=== PATIENT | female | born 1960 | race Caucasian/White ===

== ENCOUNTER 2020-09-08 16:11 | Emergency (ER) | payer OTHER, SELFPAY ==
[2020-09-08 16:25] VITALS: BP 180/123; PULSE 92; RESP 20; TEMP 36.6; O2SAT 97
--- NOTE | 2020-09-08 16:34 | ED_ITS ---
HPI - General Adult General Chief complaint: Unspecified Stated complaint: HBP Time Seen by Provider: 09/08/20 16:35 Source: patient and RN notes reviewed Mode of arrival: ambulatory Limitations: no limitations History of Present Illness HPI narrative: 60-year-old female presents with concern for 3-week history of heart palpitations. Reports she has been checking her blood pressure and it is been high. She denies any history of heart problems or treatment for high blood pressure. She denies chest pain, nausea, vomiting, back pain, abdominal pain, syncope or near syncope, diaphoresis, arm pain. MD complaint: palpitations Related Data Home Medications Medication Instructions Recorded Confirmed No Home Medications 09/08/20 09/08/20 Allergies Allergy/AdvReac Type Severity Reaction Status Date / Time No Known Allergies Allergy Verified 09/08/20 16:48 Review of Systems Review of Systems: Narrative: CONSTITUTIONAL: Denies malaise, chills, sweats, or fever. EYES: Denies visual changes CARDIOVASCULAR: Denies chest pain or edema. Reports palpitations RESPIRATORY: Denies cough or dyspnea. GASTROINTESTINAL: Denies abdominal pain, nausea, vomiting, diarrhea, bloody, or mucous stools. MUSCULOSKELETAL: Denies back pain, joint pain, or myalgia. NEUROLOGIC: Denies numbness, weakness, or headache. PSYCHIATRIC: Denies anxiety or depression. All systems reviewed & are unremarkable except as noted in HPI and below PMFSH Comments At time of signature, agree with nursing past medical, surgical, social and family history. There is no relevant family history pertinent to the presenting complaint Exam Narrative: Exam Narrative: GENERAL: Well-appearing, well-nourished, and in no acute distress. HEAD: Normocephalic EYES: PERRLA, conjunctivae clear ENT: Mucous membranes moist. NECK: Supple. CHEST: No respiratory distress. Speaks in full sentences. HEART: Regular rate and irregular rhythm. SKIN: Warm, dry, no rash. NEURO: Alert and oriented x3. PSYCH: Normal mood and affect Course Course Emergency Course: Patient is aware of, understands and agrees to reasons to be seen in the emergency department. Patient refuses transfer via EMS. Patient agrees to proceed directly to the emergency department and will be driven by her . Portions of this record may have been created with voice recognition software Vital Signs Vital signs: Reviewed. Transfer Transfered to: [facility] Transportation: Other (Private vehicle, refused EMS) Transfer rationale: Abnormal EKG, palpitations, hypertension Accepting physician: Dr. Stark Transfer comments: Patient stable. Refused transfer via EMS Medical Decision Making MDM Narrative Medical decision making narrative: History and ECG warrant further evaluation the emergency department; patient is non-toxic appearing and is in no distress. Critical Care Time Critical Care Time Critical Care Time: No Discharge Plan Discharge Clinical Impression: Abnormal ECG Patient Disposition: Acute Care Hospital Condition: Stable Prescriptions: No Action No Home Medications RF: 0 Follow-up/Referrals: UNKNOWN,DOCTOR [Primary Care Provider] - Time of Disposition: 16:46
--- NOTE | 2020-09-08 16:36 | ECG_ITS ---
Measurements Intervals [place] Rate: 91 P: 12 NE: 156 QRS: -29 QRSD: 81 T: 11 QT: 322 QTc: 396 Interpretive Statements SINUS RHYTHM VENTRICULAR PREMATURE COMPLEXES LOW QRS VOLTAGE IN PRECORDIAL LEADS ANTERIOR INFARCT, AGE INDETERMINATE BORDERLINE ST-T WAVE ABNORMALITY- DIFFUSE LEADS ABNORMAL ECG Electronically Signed On 09-08-2020 21:28:24 CDT by Porter Garcia D.O.
== END 2020-09-08 16:49 | disposition short-term general hospital (02) ==
PROVIDERS: Emergency Provider Nurse Practitioner
DX: R94.31 Abnormal electrocardiogram [ECG] [EKG] (principal)
CPT/HCPCS: 93005; 99203; G0463

== ENCOUNTER 2020-09-08 17:08 | Emergency (ER) | payer OTHER, SELFPAY ==
[2020-09-08] VITALS (7 sets, daily range): BP systolic 134–162; BP diastolic 93–110; PULSE 85–107; RESP 15–24; TEMP 36.6; O2SAT 94–100
--- NOTE | ~2020-09-08 | CT_ITS ---
EXAMINATION: CTA chest PE protocol EXAM DATE: 09/08/2020 18:25 INDICATION: Mid chest pain. States heart skipping. TECHNIQUE: Spiral CTA of the chest (pulmonary arteries) was performed with 100 cc Omnipaque 350 intr avenous contrast injection. Images were acquired during the pulmonary arterial phase. Coronal maxi mum intensity projection 3D-reconstructions were created by the technologist on dedicated workstation . Axial, coronal and sagittal reformatted images were reviewed. The dose-length product (DLP) for t his examination was 311.72 mGy-cm. The exposure was tailored according to patient size (auto mA exp osure control), and iterative reconstruction (ASIR) was used as additional dose reduction technique. There is no prior study for comparison. FINDINGS: Pulmonary arteries are well opacified and without intraluminal filling defects. No thora cic aortic dissection. The lungs are clear. There are no pleural or pericardial effusions. Trach eobronchial tree is patent. There is no mediastinal, hilar or axillary lymphadenopathy. There is no pneumothorax. Heart normal in size. No evidence of coronary arterial calcification. Upper abd omen is unremarkable. The bones are unremarkable. IMPRESSION: 1. Unremarkable CT pulmonary exam. Reviewed, dictated and finalized at location A.
--- NOTE | ~2020-09-08 | XR_ITS ---
EXAMINATION: XR chest 2V EXAM DATE: 09/08/2020 17:48 INDICATION: Racing heart, hypertension. TECHNIQUE: Frontal and lateral projections of the chest obtained and reviewed. There is no prior mary dy for comparison. FINDINGS: The lungs are clear. There are no pleural effusions. The cardiomediastinal silhouette is within normal limits. There is no pneumothorax suspected. The bones and soft tissues are unremarkab le. IMPRESSION: No acute cardiopulmonary findings. Reviewed, dictated and finalized at location A.
--- NOTE | 2020-09-08 17:25 | ECG_ITS ---
Measurements Intervals [place] Rate: 80 P: 37 CA: 160 QRS: -18 QRSD: 81 T: 19 QT: 366 QTc: 424 Interpretive Statements SINUS RHYTHM VENTRICULAR PREMATURE COMPLEX LOW QRS VOLTAGE IN PRECORDIAL LEADS BORDERLINE R WAVE PROGRESSION, ANTERIOR LEADS BORDERLINE ST-T WAVE ABNORMALITY- DIFFUSE LEADS BORDERLINE ECG Electronically Signed On 09-09-2020 7:29:53 CDT by Porter Garcia D.O.
[2020-09-08 17:36] LABS: Basophils Absolute Auto 0.1 K/mm3 (0.0-0.1); Basophils Percent Auto 0.9 % (0.2-1.2); Eosinophils Absolute Auto 0.1 K/mm3 (0-0.3); Eosinophils Percent Auto 1.4 % (0-4.4); Hematocrit 47.2 % (37.0-47.0); Immature Granulocyte Absolute 0.02 K/mm3 (0.00-0.031); Immature Granulocyte Percent A 0.3 % (0-0.5); Lymphocytes Absolute Auto 1.86 K/mm3 (0.9-3.2); Lymphocytes Percent Auto 26.5 % (18.3-44.2); Mean Corpuscular HGB Conc 33.9 g/dl (32-36); Mean Corpuscular Hemoglobin 34.4 pg (26-34); Mean Corpuscular Volume 101.5 fl (80-100); Mean Platelet Volume 10.1 fl (7.4-10.4); Monocytes Absolute Auto 0.7 K/mm3 (0.1-0.6); Monocytes Percent Auto 9.8 % (2.6-8.5); Neutrophils Absolute Auto 4.3 K/mm3 (1.3-6.7); Neutrophils Percent Auto 61.1 % (45.5-73.1); Platelet Count Result 236 k/mm3 (150-375); Red Blood Count 4.65 M/mm3 (4.2-5.4); Red Cell Distribution Width 12.3 % (11.5-14.5)
[2020-09-08 17:44] LABS: INR 0.9; Prothrombin Time 12.1 Seconds (11.1-14.7)
--- NOTE | 2020-09-08 17:44 | ED.ARRPALP ---
HPI - Arrhythmia/Palpitations General Chief Complaint: Arrhythmia/Palpitations Stated Complaint: HEART PALPATATIONS Time Seen by Provider: 09/08/20 17:39 Source: RN notes reviewed History of Present Illness HPI narrative: Patient presents to emergency department from urgent care for palpitations. Patient states for the past 2 days she has been having palpitations that she describes as a quivering feeling in her chest. She states the last approximate 1 to 2 seconds and resolved. Patient states that the episodes will vary in frequency she denies having any fevers or chills chest pain shortness of breath abdominal pain nausea vomiting or any other symptoms. Denies any previous cardiac history. Related Data Home Medications Medication Instructions Recorded Confirmed No Home Medications 09/08/20 09/08/20 Allergies Allergy/AdvReac Type Severity Reaction Status Date / Time No Known Allergies Allergy Verified 09/08/20 17:25 Review of Systems Review of Systems: Narrative: Gen.: Denies fevers or chills ENT: Denies congestion Respiratory: Denies shortness of breath or cough CV: Denies chest pain reports palpitations GI: Denies abdominal pain nausea, emesis or diarrhea denies burning, urgency, frequency or hematuria Musculoskeletal: Denies back pain or muscle pain Neuro: Denies numbness, tingling, weakness or focal weakness Skin: Denies rash Except as documented, all other systems reviewed and negative PMFSH Past Medical History Medical History (Updated 09/08/20 @ 18:50 by Christopher Gordon DO) Patient denies significant medical history Social History Social History (Updated 09/08/20 @ 17:46 by Chrisotpher Gordon DO) Smoking status: Never smoker Gender identity (if verbalized by the patient): Female Exam Narrative: Exam Narrative: APPEARANCE: No acute distress, nontoxic, resting in bed EYES: EOMI HEENT: Normocephalic, atraumatic, OMM RESPIRATORY: No respiratory distress Clear to auscultation bilaterally with no rhonchi wheezing or rales. CARDIOVASCULAR: Regular rate and rhythm without murmurs rubs or gallops. ABDOMINAL: Soft, nontender, nondistended, no rebound or guarding MUSCULOSKELETAl: Moves all extremities. No clubbing, cyanosis or edema. NEURO: Awake and alert. Following commands, speech normal, no focal deficits SKIN:: Warm, dry. No rashes lesions or abrasions PSYCHIATRIC: Normal affect/mood, Course Course Emergency Course: Patient noted to have occasional PVC on EKG and feel this is likely the source of her palpitations I did discuss the patient her blood pressure. At this time we discussed we will have her follow-up with her primary care physician as an outpatient Discussed with patient results of workup and diagnosis. Discussed need for follow-up with primary care, proper use of medication, and reasons to return to the emergency department. Patient understands and agrees to current treatment plan Vital Signs Vital signs: Vital Signs Temperature 97.9 F 09/08/20 17:22 Pulse Rate 107 H 09/08/20 17:22 Respiratory Rate 20 09/08/20 17:22 Blood Pressure 162/110 H 09/08/20 17:22 Pulse Oximetry 100 09/08/20 17:22 Temperature 97.9 F 09/08/20 17:22 Pulse Rate 85 09/08/20 18:48 Respiratory Rate 16 09/08/20 18:48 Blood Pressure 157/101 H 09/08/20 18:48 Pulse Oximetry 97 09/08/20 18:48 MDM - Arrhythmia/Palpitations Lab Data Result diagrams: 09/08/20 17:28 09/08/20 17:28 Labs: Lab Results 09/08/20 09/08/20 09/08/20 Range/Units 17:28 17:28 17:28 WBC 7.0 (4.5-10.0) K/mm3 RBC 4.65 (4.2-5.4) M/mm3 Hgb 16.0 H (12.0-15.0) g/dL Hct 47.2 H (37.0-47.0) % MCV 101.5 H (80-100) fl MCH 34.4 H (26-34) pg MCHC 33.9 (32-36) g/dl RDW 12.3 (11.5-14.5) % Plt Count 236 (150-375) k/mm3 MPV 10.1 (7.4-10.4) fl Immature Gran % (Auto) 0.3 (0-0.5) % Neut % (Auto) 61.1 (45.5-73.1) % Lymph
[2020-09-08 17:45] LABS: Partial Thromboplastin Time 23.2 SECONDS (22.3-36.8)
[2020-09-08 17:48] LABS: Anion Gap 9 mmol/L (8-16); Blood Urea Nitrogen 10 mg/dL (7-17); Calcium 10.2 mg/dL (8.4-10.2); Carbon Dioxide 31 mmol/L (22-30); Chloride 100 mmol/L (98-107); Estimated CRCL calculation 69 ml/min; Estimated Glomerular Filt Rate > 60; Glucose 138 mg/dL (65-105); Potassium 3.7 mmol/L (3.4-5.0); Sodium 140 mmol/L (137-145)
[2020-09-08 17:57] LABS: D Dimer 0.55 ug/mL (<0.48)
[2020-09-08] MEDS: ASPIRIN 81 MG CHEWABLE TABLET 324 MG PO (17:57)
[2020-09-08 18:00] LABS: Troponin I < 0.012 ng/mL (0.000-0.034)
--- NOTE | 2020-09-08 18:50 | PC.NURSE ---
verbal order from erp dr cates to not give iv fluids.
== END 2020-09-08 19:10 | disposition home or self-care (01) ==
PROVIDERS: Emergency Medicine; Emergency Provider Emergency Medicine; PCP Family Medicine
DX: I49.3 Ventricular premature depolarization (principal); R94.31 Abnormal electrocardiogram [ECG] [EKG]
CPT/HCPCS: 36415; 71046; 71275; 80048; 84443; 84484; 85025; 85380; 85610; 85730; 93005; 99284; A9270; Q9967

== ENCOUNTER 2022-01-19 12:27 | Emergency (ER) | payer OTHER, SELFPAY ==
[2022-01-19 12:38] VITALS: BP 136/102; PULSE 112; RESP 18; TEMP 36.5; O2SAT 99
--- NOTE | 2022-01-19 12:51 | ED.SKABFB ---
HPI - Skin/Abscess/Foreign Bdy General Chief complaint: Skin/Abscess/Foreign Body Stated complaint: Skin Irritation Time Seen by Provider: 01/19/22 12:51 Source: patient Mode of arrival: ambulatory Limitations: no limitations History of Present Illness HPI narrative: 61 yo F presents with rash to bilateral arms for several days. hx of eczema. has used betamethasone cream in the past the PCP prescribed. Also reports dryness around lips. No other complaints. All systems reviewed and negative except as noted above. Related Data Allergies Allergy/AdvReac Type Severity Reaction Status Date / Time No Known Allergies Allergy Verified 01/19/22 12:33 Review of Systems Review of Systems: CONSTITUTIONAL: Denies fever, chills, or sweats. EYES: Denies visual changes, redness, or discharge. ENT: Denies rhinorrhea, congestion, sore throat, or otalgia. CARDIOVASCULAR: Denies chest pain, palpitations, or edema. RESPIRATORY: Denies cough or dyspnea. GASTROINTESTINAL: Denies abdominal pain, nausea, vomiting, or diarrhea. GENITOURINARY: Denies dysuria or hematuria. SKIN: Reports rash or itching to bilateral upper arms. MUSCULOSKELETAL: Denies back pain, joint pain, or myalgia. NEUROLOGIC: Denies headache, numbness, or weakness. PSYCHIATRIC: Denies anxiety or depression. All other systems reviewed are negative, except as documented in HPI. [facility] Past Medical History Medical History (Updated 01/19/22 @ 13:06 by Neeta Snowden NP) Patient denies significant medical history Social History Social History (Updated 09/08/20 @ 17:46 by Christopher Gordon DO) Smoking status: Never smoker Gender identity (if verbalized by the patient): Female Comments At time of signature, agree with nursing past medical, surgical, social and family history. There is no relevant family history pertinent to the presenting complaint. Exam Narrative: GENERAL: This is a well-nourished, well-developed patient, in no apparent distress. HEAD: normocephalic, atraumatic. EYES: PERRL. Sclera clear/white. Vision is grossly intact. EARS: External ears normal, auditory canals clear and without drainage, TMs normal without perforation. Hearing grossly intact. NOSE: External nose normal with no obvious nasal discharge, nares without redness, no rhinorrhea. THROAT: Mucous membranes moist, posterior pharynx clear. NECK: Neck supple, non-tender without lymphadenopathy, masses or thyromegaly. CARDIOVASCULAR: Regular rate and rhythm without murmurs, gallops, or rubs. RESPIRATORY: Clear to auscultation. Breath sounds equal bilaterally. No wheezes, rales, or rhonchi. GASTROINTESTINAL: Abdomen soft, non-tender, nondistended. Bowel sounds are active. No hepato-splenomegaly, or palpable masses. No guarding. SKIN: warm, Dry, intact, good texture and turgor. Circular erythematous scaly lesions to bilateral upper arms and hands consistent with nummular eczema. NEURO: awake, alert, and oriented to person, place and time. There were no obvious focal neurologic abnormalities. EXTREMITIES: No joint tenderness, effusion, or edema noted. No calf tenderness. Negative Homans sign bilaterally. BACK: Nontender without deformity. No CVA tenderness. Course Course Level of Care: Express Care Visit Vital Signs Vital signs: Vital Signs Temperature 36.5 C 01/19/22 12:38 Pulse Rate 112 H 01/19/22 12:38 Respiratory Rate 18 01/19/22 12:38 Blood Pressure 136/102 H 01/19/22 12:38 Pulse Oximetry 99 01/19/22 12:38 Temperature 36.5 C 01/19/22 12:38 Pulse Rate 112 H 01/19/22 12:38 Respiratory Rate 18 01/19/22 12:38 Blood Pressure 136/102 H 01/19/22 12:38 Pulse Oximetry 99 01/19/22 12:38 MDM - Skin/Abscess/Foreign Bdy MDM Narrative Medical decision making narrative: Patient is aware of diagnosis, understands and agrees to treatment plan. Anticipatory guidance given. Patient agrees to follow-up as directed and is aware of reasons to seek care at the emergency de
== END 2022-01-19 13:07 | disposition home or self-care (01) ==
PROVIDERS: Emergency Provider Nurse Practitioner Family; PCP Family Medicine
DX: L30.9 Dermatitis, unspecified (principal); L30.0 Nummular dermatitis
CPT/HCPCS: 99213; G0463

== ENCOUNTER 2022-04-03 13:45 | Emergency (ER) | payer OTHER, SELFPAY ==
[2022-04-03 13:58] VITALS: BP 154/108; PULSE 79; RESP 16; TEMP 36.6; O2SAT 100
--- NOTE | 2022-04-03 14:15 | ED.SKABFB ---
HPI - Skin/Abscess/Foreign Bdy General Chief complaint: Skin/Abscess/Foreign Body Stated complaint: Skin Irritation Time Seen by Provider: 04/03/22 14:15 Source: patient and family Mode of arrival: ambulatory Limitations: no limitations History of Present Illness HPI narrative: 62-year-old female presented for complaint of rash to the left forearm for 5 days, also noticed red patches to the face today. Reports red patches to the face are to the corners of eyes and mouth. Denies lip, tongue, or throat swelling, difficulty breathing or wheezing, denies vision changes. states she has flareups every so often for a few months. This is the first time she is noticed it to her face. She has been using prescribed betamethasone cream for history of eczema, and [id number] hypoallergenic cream as needed for the arm. Denies changes to lotion, soap, make-up, detergent etc. She denies pain, nausea, vomiting, fevers or chills. She also endorses right shoulder blade pain, onset today at 10 AM. She has taken 3 ibuprofen. Thinks she may have pulled a muscle but does not recall; states pain is worse with deep breath. Her is helping provide History. She states I am mostly here for my face. complaint: rash Related Data Allergies Allergy/AdvReac Type Severity Reaction Status Date / Time atropine AdvReac Intermediate Fever Verified 04/03/22 14:10 Review of Systems Review of Systems: CONSTITUTIONAL: Denies body aches, fever, chills, or sweats. EYES: Denies visual changes,or discharge. ENT: Denies rhinorrhea, congestion, sore throat, or otalgia. CARDIOVASCULAR: Denies chest pain, palpitations, or edema. RESPIRATORY: Denies cough or dyspnea. GASTROINTESTINAL: Denies abdominal pain, nausea, vomiting, or diarrhea. GENITOURINARY: Denies dysuria or hematuria. SKIN: reports rash, itching MUSCULOSKELETAL: reports back pain NEUROLOGIC: Denies headache, numbness, tingling, or weakness. PSYCH: Denies depression or anxiety. [facility] Past Medical History Medical History (Updated 04/03/22 @ 14:43 by Kalie Johnson APRN) Patient denies significant medical history Social History Social History Smoking status: Never smoker Gender identity (if verbalized by the patient): Female Comments At time of signature, I have reviewed and agree with nursing past medical, surgical, social and family history unless otherwise noted. Please see nursing chart for further information. There is no relevant family history pertinent to the presenting complaint Exam Narrative: GENERAL: Well-appearing HEAD: Normocephalic, atraumatic. EYES: PERRLA, conjunctivae clear, and EOMI. ENT: Mucous membranes moist. Tongue is black in color. Oropharynx without edema, erythema or lesions. erythematous flat patches approx 1cm diameter to corners of mouth and 0.5cm diameter to inner and outer canthus of bilateral eyes NECK: Supple. No lymphadenopathy CHEST: Clear to auscultation. No respiratory distress. HEART: Regular rate and rhythm. SKIN: Warm, dry. flat patches of erythema to neck, left forearm with circular flat erythematous patches approx 3 inches diameter, no drainage, scaling, fluctuance, or induration MUSC: Pain is reported to the right shoulder blade, however nontender with palpation. She endorses pain only with deep inspiration. NEURO: Alert and oriented PSYCH: Normal mood and affect, appears forgetful Course Course Emergency Course: Patient is aware of diagnosis, understands and agrees to treatment plan. Anticipatory guidance given. Patient agrees to follow-up as directed and is aware of reasons to seek care at the emergency department. Portions of this record may have been created with voice recognition software Level of Care: Express Care Visit Vital Signs Vital signs: Vital Signs Temperature 97.9 F 04/03/22 13:58 Pulse Rate 79 04/03/22 13:58 Respiratory Rate 16 04/03/22 13
[2022-04-03 14:29] VITALS: BP 138/96
--- NOTE | 2022-04-26 12:23 | ED.SKABFB ---
HPI - Skin/Abscess/Foreign Bdy General Chief complaint: Skin/Abscess/Foreign Body Stated complaint: Skin Irritation Time Seen by Provider: 04/03/22 14:15 Source: patient and family Mode of arrival: ambulatory Limitations: no limitations History of Present Illness HPI narrative: Brenna Mendosa is a 62 yo with a PMH of eczema [facility] another flareup of what appears to be an eczematous rash this time on her face for the past week that is worsening;she has been seen here twice before for the same condition is gotten betamethasone and then famotidine with a taper pack last time she was here. 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 EYES: Denies visual changes, redness, discharge. ENT: Denies rhinorrhea, congestion, sore throat, otalgia. CARDIOVASCULAR: Denies chest pain, palpitations, edema. RESPIRATORY: Denies dyspnea, wheezing, cough GASTROINTESTINAL: Denies abdominal pain, nausea, vomiting, diarrhea. GENITOURINARY: Denies dysuria, hematuria, abnormal discharge SKIN: Rash on arms neck; bilateral periorbital and both sides of mouth NEUROLOGIC: Denies numbness, or focal weakness. PSYCHIATRIC: Denies anxiety or depression. PMFSH Past Medical History Medical History Eczema Patient denies significant medical history Social History Social History Smoking status: Never smoker Gender identity (if verbalized by the patient): Female Comments At time of signature, I agree with nursing past medical, surgical, social and family history. There is no relevant family history pertinent to the presenting complaint. Exam Narrative: GENERAL: This is a well-nourished, well-developed patient, in mild distress. HEAD: normocephalic, atraumatic. EYES: PERRL. Sclera clear/white. Vision is grossly intact. EARS: External ears normal, auditory canals clear and without drainage, TMs normal without perforation. Hearing grossly intact. NOSE: External nose normal without nasal discharge, nares without redness, no rhinorrhea. THROAT: Mucous membranes moist, posterior pharynx NECK: Neck supple, non-tender CARDIOVASCULAR: Regular rate and rhythm without murmurs, gallops, or rubs. RESPIRATORY: Clear to auscultation. Breath sounds equal bilaterally. No wheezes, rales, or rhonchi. GASTROINTESTINAL: Abdomen soft, non-tender, SKIN: warm, intact with no suspicious lesions or rash, good texture and turgor. NEURO: awake, alert, and oriented to person, place and time. There were no obvious focal neurologic abnormalities. Steady gait EXTREMITIES: Normal range of motion. BACK: Nontender without deformity Course Vital Signs Vital signs: Vital Signs Temperature 97.9 F 04/03/22 13:58 Pulse Rate 79 04/03/22 13:58 Respiratory Rate 16 04/03/22 13:58 Blood Pressure 154/108 H 04/03/22 13:58 Pulse Oximetry 100 04/03/22 13:58 Oxygen Delivery Room Air 04/03/22 13:58 Temperature 97.9 F 04/03/22 13:58 Pulse Rate 79 04/03/22 13:58 Respiratory Rate 16 04/03/22 13:58 Blood Pressure 138/96 H 04/03/22 14:29 Pulse Oximetry 100 04/03/22 13:58 Oxygen Delivery Room Air 04/03/22 13:58 Discharge Plan Discharge Clinical Impression: Dermatitis, Musculoskeletal pain Patient Disposition: Home, Self-Care Condition: Stable Instructions: Antibiotic Form, Dermatitis (ED) Additional Instructions: Wash the area with gentle soap and water only. Avoid scratching when possible to prevent worsening of the condition and disruption of the skin that could
== END 2022-04-03 14:44 | disposition home or self-care (01) ==
PROVIDERS: Emergency Provider Nurse Practitioner Family; PCP Family Medicine
DX: L30.9 Dermatitis, unspecified (principal); M79.10 Myalgia, unspecified site; Z96.643 Presence of artificial hip joint, bilateral
CPT/HCPCS: 99213; G0463

== ENCOUNTER 2022-04-26 12:02 | Emergency (ER) | payer OTHER, SELFPAY ==
[2022-04-26 12:10] VITALS: PULSE 110; RESP 18; TEMP 36.3; O2SAT 98
[2022-04-26 12:35] VITALS: BP 128/90
--- NOTE | 2022-04-26 12:42 | ED.SKABFB ---
HPI - Skin/Abscess/Foreign Bdy General Chief complaint: Skin/Abscess/Foreign Body Stated complaint: Skin Irritation Time Seen by Provider: 04/26/22 12:05 Source: patient Mode of arrival: ambulatory Limitations: no limitations History of Present Illness HPI narrative: Brenna Mendosa is a 62 yo with a PMH of eczema who [facility] with another flareup of what appears to be an eczematous rash this time on her face she has been seen here twice before for the same condition is gotten betamethasone and then famotidine with a taper pack last time she was here. Her states he is try to get a referral from the primary care doctor but is unable to get through to the office; needs to see a ap processor. Patient has had recurrence every 3 months for the last 6 months was seen on office visit in between Related Data Allergies Allergy/AdvReac Type Severity Reaction Status Date / Time atropine AdvReac Intermediate Fever Verified 04/26/22 12:07 Review of Systems Review of Systems: CONSTITUTIONAL: Denies fever, chills, sweats. EYES: Denies visual changes, redness, discharge. ENT: Denies rhinorrhea, congestion, sore throat, otalgia. CARDIOVASCULAR: Denies chest pain, palpitations, edema. RESPIRATORY: Denies dyspnea, wheezing, cough GASTROINTESTINAL: Denies abdominal pain, nausea, vomiting, diarrhea. GENITOURINARY: Denies dysuria, hematuria, abnormal discharge SKIN: Recurrent flare of eczema which is on her arms neck face around eyes NEUROLOGIC: Denies numbness, or focal weakness. PSYCHIATRIC: Denies anxiety or depression. PMFSH Past Medical History Medical History Eczema Patient denies significant medical history Social History Social History Smoking status: Never smoker Gender identity (if verbalized by the patient): Female Comments At time of signature, I agree with nursing past medical, surgical, social and family history. There is no relevant family history pertinent to the presenting complaint. Exam Narrative: GENERAL: This is a well-nourished, well-developed patient, in mild distress. HEAD: normocephalic, atraumatic. EYES: Sclera clear/white. Vision is grossly intact. EARS: External ears normal. Hearing grossly intact. NOSE: External nose normal without nasal discharge, nares without redness, no rhinorrhea. THROAT: Mucous membranes moist, NECK: Neck supple, non-tender CARDIOVASCULAR: mild tacchycardia rate and rhythm without murmurs, gallops, or rubs. RESPIRATORY: Clear to auscultation. Breath sounds equal bilaterally. No wheezes, rales, or rhonchi. GASTROINTESTINAL: Not done SKIN: warm, intact with rash on arms, red nummular, periorbital rash and rash that surrounds mouth with extension down to the chin NEURO: awake, alert, and oriented to person, place and time. There were no obvious focal neurologic abnormalities. Steady gait EXTREMITIES: Normal range of motion. BACK: Nontender without deformity Course Course Emergency Course: Patient reports recurrence of eczema and last time was given a Medrol Dosepak which she stopped taking because she developed a nosebleed encouraged to use saline nasal spray for nose starts to feel dry Given a mixture of drugs betamethasone for trunk symptoms OTC hydrocortisone for face along with Eucerin cream on all affected areas and nystatin for cheilitis Level of Care: Express Care Visit Vital Signs Vital signs: Vital Signs Temperature 97.4 F L 04/26/22 12:10 Pulse Rate 110 H 04/26/22 12:10 Respiratory Rate 18 04/26/22 12:10 Pulse Oximetry 98 04/26/22 12:10 Oxygen Delivery Room Air 04/26/22 12:10 Temperature 97.4 F L 04/26/22 12:10 Pulse Rate 110 H 04/26/22 12:10 Respiratory Rate 18 04/26/22 12:10 Blood Pressure 128/90 04/26/22 12:35 Pulse Oximetry 98 04/26/22 12:10 Oxygen Delivery Room Air 04/26/22 12:10 MDM - S
== END 2022-04-26 12:53 | disposition home or self-care (01) ==
PROVIDERS: Emergency Provider Nurse Practitioner; PCP Nurse Practitioner
DX: L30.9 Dermatitis, unspecified (principal); K13.0 Diseases of lips; Z85.828 Personal history of other malignant neoplasm of skin
CPT/HCPCS: 99213; G0463

== ENCOUNTER 2022-05-17 13:36 | Emergency (ER) | payer OTHER, SELFPAY ==
[2022-05-17 13:48] VITALS: BP 157/98; PULSE 105; RESP 18; TEMP 36.6; O2SAT 97
--- NOTE | 2022-05-17 14:06 | ED.SKABFB ---
HPI - Skin/Abscess/Foreign Bdy General Chief complaint: Skin/Abscess/Foreign Body Stated complaint: rash,nausea Time Seen by Provider: 05/17/22 13:38 Source: patient Mode of arrival: ambulatory Limitations: no limitations History of Present Illness HPI narrative: 62-year-old female presents to [facility] with complaints of eczema flareup to her bilateral arms and face for the past week. Patient has been evaluated here numerous times in the past for similar complaint and is given betamethasone and a Medrol Dosepak at that time. Husbandreports that patient is currently looking [place] a new [place] that is closer to [place]. Patient reports that she also has had intermittent nausea the past few days. Patient denies vomiting, headache, dizziness, shortness of breath or chest pains. Patient denies sick contacts. Patient denies recent travel. MD complaint: rash Onset (ago): week(s) (1) Location: face, LUE and RUE Relieving factors: none Exacerbating factors: none Associated symptoms: nausea Related Data Allergies Allergy/AdvReac Type Severity Reaction Status Date / Time atropine AdvReac Intermediate Fever Verified 05/17/22 13:58 Review of Systems Constitutional: Constitutional: Denies chills, Denies fatigue, Denies fever(s) and Denies weakness ENT: Denies dizziness Cardiovascular: Cardiovascular: Denies chest pain, Denies rapid heart rate, Denies radiating jaw, neck or arm pain and Denies slow heart rate Respiratory: Respiratory: Denies cough and Denies dyspnea Gastrointestinal: Gastrointestinal: Denies diarrhea, Reports nausea and Denies vomiting Integumentary/Breasts: Skin/Breast: Denies pruritus, Reports rash and Denies skin ulcer Neurologic: Denies dizziness PMFSH Past Medical History Medical History Eczema Patient denies significant medical history Social History Social History Smoking status: Never smoker Gender identity (if verbalized by the patient): Female Comments At time of signature, I agree with nursing past medical, surgical, social and family history. There is no relevant family history pertinent to the presenting complaint. Exam Const: General: healthy appearing Nutritional Appearance: well nourished Orientation/consciousness: patient oriented x3 Limitations: no limitations HENMT: Head: normal to inspection Mouth: Yes Normal oral and palatal mucosa present and Yes lip normal Teeth and gingiva: dentition normal Throat: posterior oropharynx normal and uvula midline Eyes: Conjunctivae: conjunctivae normal Neck: Neck: normal visual inspection Resp: Effort & Inspection: normal respiratory effort and not labored Auscultation: clear to auscultation bilaterally, no crackles, no rales and no wheezes Cardio: Rate: regular rate Rhythm: regular rhythm GI: Inspection: non-distended GI Palp: Yes Soft to palpation and No Tenderness to palpation present (GI) Skin: General skin exam: normal color Wounds: no wounds Other: Erythematous scaly rash noted to bilateral arms and face. Area likely represents eczema. There are no open wounds, purulent drainage, bruising, bleeding or signs of infection noted. Neuro: General: patient oriented x3 Speech: normal speech Gait exam (Neuro): Normal gait present Psych: Mental Status: mental status grossly normal Affect: normal affect Attitude: cooperative Course Course Level of Care: Express Care Visit MDM - Skin/Abscess/Foreign Bdy MDM Narrative Medical decision making narrative: Encouraged patient to schedule appointment with local [facility]. We will refill patient's betamethasone and prescribed Medrol pack. Instructed patient not to use steroid cream on face. Patient agrees to take Zofran as needed for nausea. Patient agrees to proceed to the emergency room if her nausea would worsen or if she develops chest pain, shortness of breath
== END 2022-05-17 14:20 | disposition home or self-care (01) ==
PROVIDERS: Emergency Provider Nurse Practitioner Family; PCP Nurse Practitioner
DX: R11.0 Nausea (principal); L30.9 Dermatitis, unspecified; Z85.828 Personal history of other malignant neoplasm of skin
CPT/HCPCS: 99213; G0463

== ENCOUNTER 2022-08-08 14:06 | Emergency (ER) | payer OTHER, SELFPAY ==
--- NOTE | 2022-08-08 14:08 | ED.SKABFB ---
HPI - Skin/Abscess/Foreign Bdy General Chief complaint: Skin/Abscess/Foreign Body Stated complaint: Rash Time Seen by Provider: 08/08/22 14:15 Source: patient and RN notes reviewed Mode of arrival: ambulatory Limitations: no limitations History of Present Illness HPI narrative: 62-year-old female is with concern for rash to her face for 3 days. Reports she has been dealing with skin issues most of the year, she has had several visits to this clinic and has also been seeing her primary care and a slab grinder. She reports that she has an appointment with her slab grinder for skin patch testing. Reports she takes antihistamine. She denies any known triggers. She reports the rash perla when she puts cream on it. She denies swollen lips, swollen tongue, trouble breathing. She reports the rash is isolated to her face and neck. She denies vision changes, drainage from the eyes, itchy eyes. MD complaint: rash Related Data Home Medications Medication Instructions Recorded Confirmed tacrolimus 0.1 % topical ointment 1 applic topical TID 08/08/22 08/08/22 Allergies Allergy/AdvReac Type Severity Reaction Status Date / Time atropine AdvReac Intermediate Fever Verified 08/08/22 14:10 Review of Systems Review of Systems: CONSTITUTIONAL: Denies malaise, chills, sweats, or fever. EYES: Denies vision changes, irritation, or discharge. ENT: Denies rhinorrhea, congestion, swollen lips, swollen tongue CARDIOVASCULAR: Denies chest pain, palpitations, or edema. RESPIRATORY: Denies cough or dyspnea. GASTROINTESTINAL: Denies abdominal pain, nausea, vomiting SKIN: Reports red rash to the face and neck, affecting both eyelids, reports rash perla when she puts cream on it MUSCULOSKELETAL: Denies joint pain or myalgia. NEUROLOGIC: Denies headache. All systems reviewed & are unremarkable except as noted in HPI and below PMFSH Past Medical History Medical History Eczema Patient denies significant medical history Social History Social History Smoking status: Never smoker Gender identity (if verbalized by the patient): Female Comments At time of signature, agree with nursing past medical, surgical, social and family history. There is no relevant family history pertinent to the presenting complaint Exam Narrative: GENERAL: Well-appearing, well-nourished, and in no acute distress. HEAD: Normocephalic, atraumatic. EYES: PERRLA, conjunctivae and sclera clear, and EOMI. ENT: Mucous membranes moist. Oropharynx without edema, erythema or lesions. NECK: Supple. No lymphadenopathy CHEST: Clear to auscultation. No respiratory distress. HEART: Regular rate and rhythm. SKIN: Warm, dry. Clustered patches of flat to slightly raised erythema without papules noted scattered to the face and neck, affecting bilateral upper and lower eyelids NEURO: Alert and oriented x3. PSYCH: Normal mood and affect Course Course Emergency Course: Patient was advised to keep her appointment with her slab grinder. Patient was given reasons to go to the emergency room. Patient reports she had tried to cover the rash up with make-up which seemed to make it worse. Patient was advised to use only creams meant for sensitive skin on the face. Patient is aware of diagnosis, understands and agrees to treatment plan. Anticipatory guidance given. Patient agrees to follow-up as directed and is aware of reasons to seek care at the emergency department. Portions of this record may have been created with voice recognition software Level of Care: Express Care Visit Vital Signs Vital signs: Reviewed. MDM - Skin/Abscess/Foreign Bdy MDM Narrative Medical decision making narrative: Does not appear at this time to be erythema multiforme, bullous, SJS, TEN; no evidence at this time to suggest RMSF, endocarditis or Lyme disease; patient looks well, nontoxic and is t
[2022-08-08 14:14] VITALS: BP 153/98; PULSE 108; RESP 18; TEMP 36.7; O2SAT 97
[2022-08-08] MEDS: methylPREDNISolone SOD SUCC 125 MG VIAL IM (14:37)
== END 2022-08-08 14:45 | disposition home or self-care (01) ==
PROVIDERS: Emergency Provider Nurse Practitioner; PCP Nurse Practitioner
DX: R21 Rash and other nonspecific skin eruption (principal); Z85.828 Personal history of other malignant neoplasm of skin
CPT/HCPCS: 96372; 99213; G0463; J2930

== ENCOUNTER 2022-08-20 17:36 | Emergency (ER) | payer OTHER, SELFPAY ==
--- NOTE | 2022-08-20 17:45 | ED.SKABFB ---
HPI - Skin/Abscess/Foreign Bdy General Chief complaint: Skin/Abscess/Foreign Body Stated complaint: rash Time Seen by Provider: 08/20/22 17:46 Source: patient, RN notes reviewed and old records reviewed Mode of arrival: ambulatory Limitations: no limitations History of Present Illness HPI narrative: 62-year-old female returns to the [facility] after being evaluated on August 08 and prescribed prednisone. Patient reports that she has patch testing, allergy testing for Friday. Still having a continued rash. States that she takes prednisone it clears a short period of time and then comes right back. Patient states that she has the same rash she had had for several months. Has an appointment with [facility] on Friday for her rash. Patient reports that she does round after a round of steroids and as soon as she is done taking steroids for the rash returns. States has been going on for months. Patient reports that she is having some type of skin testing, patch testing done on Friday. Discussed with patient, offered prednisone however ending on the type of testing she is having that it may alter the results. Discussed this in great detail with patient and her daughter. Patient declined taking the prednisone. Encourage patient strongly to call dermatology in the morning for further instructions in regards to her test on Friday which patient states she is unsure of any limitations or treatment plan. States that she has enough creams to include betamethasone and something that was prescribed by [facility]. Onset (ago): month(s) Related Data Home Medications Medication Instructions Recorded Confirmed No Home Medications 08/20/22 08/20/22 Allergies Allergy/AdvReac Type Severity Reaction Status Date / Time atropine AdvReac Intermediate Fever Verified 08/20/22 17:56 Review of Systems Review of Systems: All systems reviewed & are unremarkable except as noted in HPI and below Constitutional: Constitutional: Reports no additional constitutional complaints, Denies chills and Denies fever(s) Eyes: Eyes: Reports no additional eye complaints ENT: Reports system reviewed and no additional complaints, except as documented Cardiovascular: Cardiovascular: Reports no additional cardiovascular complaints Respiratory: Respiratory: Reports no additional respiratory complaints Gastrointestinal: Gastrointestinal: Reports no additional gastrointestinal complaints Musculoskeletal: Musculoskeletal: Reports no additional musculoskeletal complaints Integumentary/Breasts: Skin/Breast: Reports as per HPI Neurologic: Reports system reviewed and no additional complaints, except as documented Psychiatric: Psychiatric: Reports no additional psychiatric complaints Allergic/Immunologic: Allergic/Immunologic: Reports no additional allergic/immunologic complaints PMFSH Past Medical History Medical History Eczema Patient denies significant medical history Social History Social History Smoking status: Never smoker Gender identity (if verbalized by the patient): Female Comments At the time of my signature, I reviewed and agree with the nursing past medical, surgical, social, and family history. There is no relevant family history pertinent to the patient complaint. Exam Const: General: healthy appearing, no acute distress and alert Nutritional Appearance: well nourished Orientation/consciousness: patient oriented x3 Limitations: no limitations HENMT: Head: normal to inspection Ears: external ears normal General nose exam: Normal external nose present Mouth: Yes Normal oral and palatal mucosa present, Yes lip normal and Yes moist mucous membranes Throat: posterior oropharynx normal and uvula midline Eyes: General: appearance normal, both eyes and all related structures Pupils: Equal, round and reactive pupils present
[2022-08-20 17:48] VITALS: BP 151/97; PULSE 65; RESP 16; TEMP 36.3; O2SAT 98
== END 2022-08-20 18:05 | disposition home or self-care (01) ==
PROVIDERS: Emergency Provider Nurse Practitioner
DX: L30.9 Dermatitis, unspecified (principal); Z85.828 Personal history of other malignant neoplasm of skin
CPT/HCPCS: 99211; G0463

== ENCOUNTER 2022-10-16 19:50 | Emergency (ER) | payer OTHER, SELFPAY ==
--- NOTE | 2022-10-16 20:03 | ED.DENTAL ---
HPI - Dental/Oral General Chief complaint: Dental/Oral Stated complaint: bleeding from pulled tooth Time Seen by Provider: 10/16/22 20:04 Source: patient Mode of arrival: ambulatory Limitations: no limitations History of Present Illness HPI Narrative: 62-year-old female presents with complaint of bleeding from extracted tooth. Reports that she had tooth extracted yesterday. Has already followed up with dentist twice today due to bleeding. Was told to apply pressure with gauze. Patient arrived without gauze to extract tooth. reports that patient has history of anxiety and is concerned because to this till bleeding. All systems reviewed and negative except as noted above. Related Data Home Medications Medication Instructions Recorded Confirmed lisinopril 20 1 tablet PO DAILY 10/16/22 10/16/22 mg-hydrochlorothiazide 12.5 mg tablet losartan 50 mg-hydrochlorothiazide 1 tablet PO DAILY 10/16/22 10/16/22 12.5 mg tablet Allergies Allergy/AdvReac Type Severity Reaction Status Date / Time atropine AdvReac Intermediate Fever Verified 10/16/22 20:04 Review of Systems Review of Systems: CONSTITUTIONAL: Denies fever, chills, or sweats. EYES: Denies visual changes, redness, or discharge. ENT: Denies rhinorrhea, congestion, sore throat, or otalgia. Reports bleeding to right lower extracted tooth. CARDIOVASCULAR: Denies chest pain, palpitations, or edema. RESPIRATORY: Denies cough or dyspnea. GASTROINTESTINAL: Denies abdominal pain, nausea, vomiting, or diarrhea. GENITOURINARY: Denies dysuria or hematuria. SKIN: Denies rash or itching. MUSCULOSKELETAL: Denies back pain, joint pain, or myalgia. NEUROLOGIC: Denies headache, numbness, or weakness. PSYCHIATRIC: Denies anxiety or depression. All other systems reviewed are negative, except as documented in HPI. [facility] Past Medical History Medical History Eczema Patient denies significant medical history Social History Social History Smoking status: Never smoker Gender identity (if verbalized by the patient): Female Comments At time of signature, agree with nursing past medical, surgical, social and family history. There is no relevant family history pertinent to the presenting complaint. Exam Narrative: GENERAL: This is a well-nourished, well-developed patient, in no apparent distress. HEAD: normocephalic, atraumatic. EYES: PERRL. Sclera clear/white. Vision is grossly intact. EARS: External ears normal NOSE: External nose normal MOUTH: Tooth number 28 extracted, scant bleeding noted. NECK: Neck supple, non-tender without lymphadenopathy, masses or thyromegaly. CARDIOVASCULAR: Regular rate and rhythm without murmurs, gallops, or rubs. RESPIRATORY: Clear to auscultation. Breath sounds equal bilaterally. No wheezes, rales, or rhonchi. SKIN: warm, Dry, intact with no suspicious lesions or rash, good texture and turgor. NEURO: awake, alert, and oriented to person, place and time. There were no obvious focal neurologic abnormalities. EXTREMITIES: No joint tenderness, effusion, or edema noted. Course Course Level of Care: Express Care Visit Vital Signs Vital signs: Review MDM - Dental/Oral MDM Narrative Medical decision making narrative: wet gauze placed to extracted tooth, patient instructed to apply pressure by biting down. Bleeding is scant. Recommend she go to the ER for worsening of symptoms. Recommend she call her dentist on Friday. Patient is aware of diagnosis, understands and agrees to treatment plan. Anticipatory guidance given. Patient agrees to follow-up as directed and is aware of reasons to seek care at the emergency department. Portions of this record may have been created with voice recognition software Discharge Plan Discharge Clinical Impression: Worried well, S/P tooth extraction Patient Disposition:
[2022-10-16 20:09] VITALS: BP 158/89; PULSE 97; RESP 18; TEMP 36.4; O2SAT 99
[2022-10-16 20:14] VITALS: BP 142/90
== END 2022-10-16 20:20 | disposition home or self-care (01) ==
PROVIDERS: Emergency Provider Nurse Practitioner Family
DX: Z71.1 Person with feared health complaint in whom no diagnosis is made (principal); Z98.818 Other dental procedure status
CPT/HCPCS: 99211; G0463

== ENCOUNTER 2022-11-19 19:37 | Emergency (ER) | payer OTHER, SELFPAY ==
[2022-11-19 19:43] VITALS: BP 153/87; PULSE 87; RESP 20; TEMP 36.6; O2SAT 100
--- NOTE | 2022-11-19 19:44 | ED.SKABFB ---
HPI - Skin/Abscess/Foreign Bdy General Chief complaint: Recheck/Abnormal Lab/Rx Stated complaint: Rash Time Seen by Provider: 11/19/22 19:44 Source: patient, RN notes reviewed and old records reviewed Mode of arrival: ambulatory Limitations: no limitations History of Present Illness HPI narrative: 62-year-old female presents to the [facility] wanting her blood pressure checked. States it was 170s over 110s at home. Became very anxious and has been brought her here. Currently under treatment for skin issues at [facility]. Is taking blood pressure medication on a daily basis states she took her blood pressure medication a little bit later than normal today. Patient does have history of anxiety denies any chest pains or shortness of breath. No blurry vision or change in vision. Denies any headaches. Related Data Home Medications Medication Instructions Recorded Confirmed lisinopril 20 1 tablet PO DAILY 10/16/22 11/19/22 mg-hydrochlorothiazide 12.5 mg tablet losartan 50 mg-hydrochlorothiazide 1 tablet PO DAILY 10/16/22 11/19/22 12.5 mg tablet Allergies Allergy/AdvReac Type Severity Reaction Status Date / Time atropine AdvReac Intermediate Fever Verified 11/19/22 19:46 Review of Systems Review of Systems: All systems reviewed & are unremarkable except as noted in HPI and below Constitutional: Constitutional: Reports no additional constitutional complaints Eyes: Eyes: Reports no additional eye complaints ENT: Reports system reviewed and no additional complaints, except as documented Cardiovascular: Cardiovascular: Reports no additional cardiovascular complaints, Denies chest pain and Denies dyspnea Respiratory: Respiratory: Reports no additional respiratory complaints, Denies chest congestion, Denies cough and Denies dyspnea Gastrointestinal: Gastrointestinal: Reports no additional gastrointestinal complaints, Denies abdominal pain, Denies nausea and Denies vomiting Musculoskeletal: Musculoskeletal: Reports no additional musculoskeletal complaints Integumentary/Breasts: Skin/Breast: Reports system reviewed and no additional complaints, except as docu Neurologic: Reports system reviewed and no additional complaints, except as documented Psychiatric: Psychiatric: Reports no additional psychiatric complaints Allergic/Immunologic: Allergic/Immunologic: Reports no additional allergic/immunologic complaints [facility] Past Medical History Medical History (Updated 11/19/22 @ 20:55 by Holli Begum, KAVEH) Anxiety Eczema History of high blood pressure Patient denies significant medical history Social History Social History (Reviewed 09/27/22 @ 19:37 by EDELMIRA Solis Smoking status: Never smoker Gender identity (if verbalized by the patient): Female Comments At the time of my signature, I reviewed and agree with the nursing past medical, surgical, social, and family history. There is no relevant family history pertinent to the patient complaint. Exam Const: General: cooperative, healthy appearing, comfortable, no acute distress, well developed, alert and well nourished Nutritional Appearance: well nourished Orientation/consciousness: patient oriented x3 Limitations: no limitations HENMT: Head: normal to inspection Ears: hearing grossly normal bilaterally and external ears normal Face/Nose/Sinus: Normal external nose present, Normal nares present and normal facial exam Face and sinus: normal facial exam Mouth: Yes Normal oral and palatal mucosa present, Yes lip normal and Yes moist mucous membranes Eyes: General: appearance normal, both eyes and all related structures Alignment and Position: alignment normal Periorbital: periorbital findings normal Conjunctivae: conjunctivae normal Pupils: Equal, round and reactive pupils present EOM: EOMs intact bilaterally Neck: Neck: normal visual inspection, full ROM, no lymphadenopathy and no meningeal signs Chest: Chest palpat
== END 2022-11-19 20:02 | disposition home or self-care (01) ==
PROVIDERS: Emergency Provider Nurse Practitioner; PCP Nurse Practitioner
DX: Z01.31 Encounter for examination of blood pressure with abnormal findings (principal); I10 Essential (primary) hypertension
CPT/HCPCS: 99211; G0463

== ENCOUNTER 2023-02-04 18:06 | Emergency (ER) | payer OTHER, SELFPAY ==
--- NOTE | 2023-02-04 18:14 | PC.NURSE ---
Pt stated they have appointment with tomorrow and will just wait till then. Pt was not triaged nor saw provider.
== END 2023-02-04 18:14 | disposition left against medical advice (07) ==
PROVIDERS: PCP Nurse Practitioner
DX: Z53.21 Procedure and treatment not carried out due to patient leaving prior to being seen by health care provider (principal)
CPT/HCPCS: 99199

== ENCOUNTER 2023-10-07 21:44 | Emergency (ER) | payer OTHER, SELFPAY ==
[2023-10-07 21:57] VITALS: BP 131/88; PULSE 65; RESP 15; TEMP 36.8; O2SAT 100
[2023-10-07 22:23] LABS: Basophils Percent Auto 1.1 % (0.2-1.2); Eosinophils Absolute Auto 0.1 K/mm3 (0-0.3); Eosinophils Percent Auto 2.2 % (0-4.4); Hematocrit 43.2 % (37.0-47.0); Hemoglobin 14.4 g/dL (12.0-15.0); Immature Granulocyte Absolute 0.01 K/mm3 (0.00-0.031); Immature Granulocyte Percent A 0.3 % (0-0.5); Lymphocytes Absolute Auto 1.95 K/mm3 (0.9-3.2); Lymphocytes Percent Auto 53.9 % (18.3-44.2); Mean Corpuscular HGB Conc 33.3 g/dl (32-36); Mean Corpuscular Hemoglobin 35.6 pg (26-34); Mean Corpuscular Volume 106.9 fl (80-100); Mean Platelet Volume 9.6 fl (7.4-10.4); Monocytes Absolute Auto 0.3 K/mm3 (0.1-0.6); Monocytes Percent Auto 8.6 % (2.6-8.5); Neutrophils Absolute Auto 1.2 K/mm3 (1.3-6.7); Neutrophils Percent Auto 33.9 % (45.5-73.1); Platelet Count Result 225 k/mm3 (150-375); Red Blood Count 4.04 M/mm3 (4.2-5.4); Red Cell Distribution Width 12.4 % (11.5-14.5); White Blood Count 3.6 K/mm3 (4.5-10.0)
[2023-10-07 22:36] LABS: Alanine Aminotransferase 46 U/L (6-35); Albumin Level 4.9 g/dL (3.5-5.1); Alkaline Phosphatase 71 U/L (38-126); Anion Gap 13 mmol/L (8-16); Aspartate Amino Transferase 83 U/L (14-36); Bilirubin,Total 0.5 mg/dL (0.2-1.3); Blood Urea Nitrogen 5 mg/dL (7-17); Calcium 9.6 mg/dL (8.4-10.2); Carbon Dioxide 30 mmol/L (22-30); Chloride 103 mmol/L (98-107); Estimated CRCL calculation 95 ml/min; Estimated Glomerular Filt Rate > 60; Glucose 114 mg/dL (65-110); Macrocytosis 1+ (NORMAL); Platelet Estimate Adequate (Adequate); Potassium 3.5 mmol/L (3.4-5.0); Schistocytes None Seen (NORMAL); Sodium 146 mmol/L (137-145)
[2023-10-07 22:59] LABS: Influenza A QL RT-PCR Negative (Negative); Influenza B QL RT-PCR Negative (Negative); RSV RNA, RT-PCR Negative (Negative); SARS-CoV-2 RNA PCR Negative (Negative)
[2023-10-07 23:38] LABS: Ethanol 343 mg/dL (<10)
[2023-10-07 23:48] LABS: Appearance Urine Clear (Clear); Bacteria Urine None Seen /hpf; Bilirubin Urine Negative (Negative); Blood Urine Negative (Negative); Color Urine Yellow (Yellow); Glucose Urine UA Negative (Negative); Ketones Urine Negative (Negative); Leukocyte Esterase Ur 2+ LEU/UL (Negative); Nitrate Urine Negative (Negative); Non Pathogenic Casts 0-2; Protein Urine Negative (Negative); RBC Urine 0-2 /hpf (0-2); Specific Grav Ur 1.005 (1.001-1.035); Squamous Epithelial Cell Urine None seen /hpf (Few); Urobilinogen Urine 0.2 mg/dL (<2.0); pH Urine 7.5 (5.0-9.0)
[2023-10-08 00:10] LABS: Add Urine Microscopic? YES
--- NOTE | 2023-10-08 00:23 | PC.NURSE ---
Pt and her walked up to front end software engineer and asked for her IV to be removed so they could leave the ED. Pt was strongly encouraged to stay by this RN. Pt stated she did not want to wait any longer. Pt ambulated to POV that was driven by her and left the ED.
== END 2023-10-08 00:43 | disposition left against medical advice (07) ==
PROVIDERS: Emergency Provider Emergency Medicine; PCP Nurse Practitioner
DX: R53.1 Weakness (principal); Z20.822 Contact with and (suspected) exposure to COVID-19
CPT/HCPCS: 36415; 80053; 80307; 81001; 85025; 87077; 87086; 87088; 87637; 99199

== ENCOUNTER 2023-10-19 00:53 | Emergency (ER) | payer OTHER, SELFPAY ==
[2023-10-19 01:12] VITALS: BP 142/95; PULSE 90; RESP 16; TEMP 36.3; O2SAT 97
--- NOTE | 2023-10-19 03:55 | PC.NURSE ---
Pt approached triage desk and states they are going to another facility to be seen. Pt ambulated out of ED with steady gait, in no obvious distress.
== END 2023-10-19 06:34 | disposition left against medical advice (07) ==
LOC: ANHED 03:58
PROVIDERS: PCP Nurse Practitioner
DX: S61.451A Open bite of right hand, initial encounter (principal)
CPT/HCPCS: 99199

== ENCOUNTER 2023-10-19 08:28 | Emergency (ER) | payer OTHER, SELFPAY ==
[2023-10-19 08:38] VITALS: BP 156/85; PULSE 81; RESP 18; TEMP 36.1; O2SAT 99
--- NOTE | 2023-10-19 09:00 | ED.ANIMALBIT ---
HPI - Animal Bite General Chief Complaint: Animal Bite Stated Complaint: Rt Hand Swelling Due To Animal Bite Time Seen by Provider: 10/19/23 09:03 Source: patient Mode of arrival: ambulatory Limitations: no limitations History of Present Illness HPI narrative: 63-year-old female presented for complaint cat bite to the right hand yesterday morning. She endorses more redness, swelling, warmth, and tenderness since the bite. She cleaned the site with alcohol a. She states she went to the emergency room last evening for these symptoms, but after waiting 3 hours she left. She denies numbness, tingling, weakness to the hand. She does endorse decreased range of motion with making a fist and at the wrist due to pain and swelling. The cat is her domestic cat which she reports is up-to-date on vaccines. She is up-to-date on her tetanus per patient. Related Data Home Medications Medication Instructions Recorded Confirmed lisinopril 20 1 tablet PO DAILY 10/16/22 11/19/22 mg-hydrochlorothiazide 12.5 mg tablet losartan 50 mg-hydrochlorothiazide 1 tablet PO DAILY 10/16/22 11/19/22 12.5 mg tablet Allergies Allergy/AdvReac Type Severity Reaction Status Date / Time atropine AdvReac Intermediate Fever Verified 11/19/22 19:46 Review of Systems Review of Systems: CONSTITUTIONAL: Denies body aches, fever, chills, or sweats. EYES: Denies visual changes, redness, or discharge. ENT: Denies rhinorrhea, congestion CARDIOVASCULAR: Denies chest pain, palpitations, or edema. RESPIRATORY: Denies cough or dyspnea. GASTROINTESTINAL: Denies abdominal pain, nausea, vomiting, or diarrhea. SKIN: Reports redness, swelling, warmth of the right hand after cat bite MUSCULOSKELETAL: Denies back pain, joint pain, or myalgia. NEUROLOGIC: Denies headache, numbness, tingling, or weakness. [facility] Past Medical History Medical History Anxiety Eczema History of high blood pressure Patient denies significant medical history Social History Social History Smoking status: Never smoker Gender identity (if verbalized by the patient): Female Comments At time of signature, I have reviewed and agree with nursing past medical, surgical, social and family history unless otherwise noted. Please see nursing chart for further information. There is no relevant family history pertinent to the presenting complaint Exam Narrative: GENERAL: Well-appearing HEAD: Normocephalic, atraumatic. EYES: conjunctivae clear, and EOMI. ENT: Mucous membranes moist. Oropharynx without edema, erythema or lesions. NECK: Supple. No lymphadenopathy CHEST: Clear to auscultation. HEART: Regular rate and rhythm. SKIN: Warm, dry. Right hand swelling, warmth, and erythema extending to proximal phalanxes and wrist; scabbed puncture to dorsal aspect over 4th metacarpal. Decreased ROM to fingers and wrist. No active drainage. Bilateral elbows erythematous and scaly c/w eczema. NEURO: Alert and oriented x3. Extrem: Hand/finger images: 1. area of erythema, warmth, swelling. Course Course Emergency Course: Patient is aware of diagnosis, understands and agrees to treatment plan. Anticipatory guidance given. Patient agrees to follow-up as directed and is aware of reasons to seek care at the emergency department. Portions of this record may have been created with voice recognition software Level of Care: Express Care Visit Vital Signs Vital signs: Vital Signs Temperature 96.9 F L 10/19/23 08:38 Pulse Rate 81 10/19/23 08:38 Respiratory Rate 18 10/19/23 08:38 Blood Pressure 156/85 H 10/19/23 08:38 Pulse Oximetry 99 10/19/23 08:38 Oxygen Delivery Room Air 10/19/23 08:38 Temperature 96.9 F L 10/19/23 08:38 Pulse Rate 81 10/19/23 08:38 Respiratory Rate 18 10/19/23 08:38 Blood Pressure 156/85 H 10/19/23 08:38 Puls
== END 2023-10-19 09:24 | disposition short-term general hospital (02) ==
PROVIDERS: Emergency Provider Nurse Practitioner Family; PCP Nurse Practitioner
DX: S61.451A Open bite of right hand, initial encounter (principal); L03.113 Cellulitis of right upper limb; W55.01XA Bitten by cat, initial encounter; I10 Essential (primary) hypertension
CPT/HCPCS: 99212; G0463

== ENCOUNTER 2023-10-19 10:01 | Inpatient (IN) | payer OTHER, SELFPAY ==
--- NOTE | ~2023-10-19 | US_ITS ---
EXAMINATION: US abdomen limited DATE: 10/21/2023 10:28 INDICATION: Hyperbilirubinemia. TECHNIQUE: Multiple grayscale and Doppler ultrasound images of the abdomen were obtained. COMPARISON: None FINDINGS: The visualized portions of the head and body of the pancreas are normal. The liver is miesha l without focal lesion. There is normal flow in main portal vein. The gallbladder is normal in size. No gallstones or gallbladder wall thickening. There was no sonographic Cross sign. The common duct i s normal and measures 6 mm. IMPRESSION: 1. Normal right upper quadrant ultrasound. Reviewed, dictated and finalized at location A. [employer]
--- NOTE | ~2023-10-19 | XR_ITS ---
XR hand RT 2V 10/20/2023 12:55 Indication: Right hand pain, swelling and tenderness. Procedure: 2 views right hand Comparison: No prior studies for comparison. Findings: There is polyarticular osteoarthritis, most advanced in the first carpometacarpal, metacarp al phalangeal joints, triscaphe joints. There is chondrocalcinosis. There are loose bodies adjacent t o multiple joints. Impression: 1: Moderate-severe polyarticular osteoarthritis. Reviewed, dictated and finalized at location B. [employer] Impression: 1: Moderate-severe polyarticular osteoarthritis.
[2023-10-19 10:03] VITALS: BP 150/88; PULSE 84; RESP 16; TEMP 36.3; O2SAT 98
[2023-10-19 10:50] VITALS: BP 151/83; PULSE 76; RESP 20; O2SAT 100
[2023-10-19 11:10] LABS: Basophils Percent Auto 0.3 % (0.2-1.2); Eosinophils Percent Auto 0.1 % (0-4.4); Hematocrit 39.5 % (37.0-47.0); Hemoglobin 13.3 g/dL (12.0-15.0); Immature Granulocyte Absolute 0.02 K/mm3 (0.00-0.031); Immature Granulocyte Percent A 0.2 % (0-0.5); Lymphocytes Absolute Auto 0.62 K/mm3 (0.9-3.2); Mean Corpuscular HGB Conc 33.7 g/dl (32-36); Mean Corpuscular Hemoglobin 35.8 pg (26-34); Mean Corpuscular Volume 106.2 fl (80-100); Mean Platelet Volume 9.5 fl (7.4-10.4); Monocytes Percent Auto 10.7 % (2.6-8.5); Neutrophils Absolute Auto 7.3 K/mm3 (1.3-6.7); Neutrophils Percent Auto 81.7 % (45.5-73.1); Platelet Count Result 207 k/mm3 (150-375); Red Blood Count 3.72 M/mm3 (4.2-5.4); White Blood Count 8.9 K/mm3 (4.5-10.0)
[2023-10-19 11:23] LABS: Alanine Aminotransferase 25 U/L (6-35); Albumin Level 4.2 g/dL (3.5-5.1); Alkaline Phosphatase 62 U/L (38-126); Anion Gap 8 mmol/L (8-16); Aspartate Amino Transferase 42 U/L (14-36); Bilirubin,Total 1.4 mg/dL (0.2-1.3); Blood Urea Nitrogen 9 mg/dL (7-17); CRP 2.2 mg/dL (<1.0); Calcium 9.4 mg/dL (8.4-10.2); Carbon Dioxide 28 mmol/L (22-30); Chloride 97 mmol/L (98-107); Estimated CRCL calculation 116 ml/min; Estimated Glomerular Filt Rate > 60; Glucose 128 mg/dL (65-110); Potassium 3.5 mmol/L (3.4-5.0); Sodium 133 mmol/L (137-145)
--- NOTE | 2023-10-19 11:34 | ED.GENADULT ---
HPI - General Adult General Chief complaint: Animal Bite Stated complaint: cat bite right hand with warmth and swelling Time Seen by Provider: 10/19/23 10:51 Source: patient Mode of arrival: ambulatory Limitations: no limitations History of Present Illness HPI narrative: This is a 63 year old female who presents to the ED with chief complaint of a cat bite to the right hand that occurred around 24 hours ago. Reports that since the bite she has had significant swelling and redness in the hand that is extending into the right forearm. Reports there is red streaking going up the right forearm. She reports the area is very painful it is difficult to make a fist. Reports the pain and swelling are limited to the dorsum of the hand and wrist. Denies any further sites of pain, bite or injury. Denies fevers, chills, nausea, vomiting. Denies any history of diabetes or immunocompromise in condition Related Data Home Medications Medication Instructions Recorded Confirmed lisinopril 20 1 tablet PO DAILY 10/16/22 11/19/22 mg-hydrochlorothiazide 12.5 mg tablet losartan 50 mg-hydrochlorothiazide 1 tablet PO DAILY 10/16/22 11/19/22 12.5 mg tablet Allergies Allergy/AdvReac Type Severity Reaction Status Date / Time hydrochlorothiazide Allergy Intermediate Other Verified 10/19/23 18:56 atropine AdvReac Intermediate Fever Verified 10/19/23 10:51 Review of Systems Review of Systems: All systems as dictated in [facility] Past Medical History Medical History (Updated 10/19/23 @ 14:19 by Sabrina Dodson PA-C) Anxiety Eczema Hypertension Surgical History Surgical History (Updated 10/19/23 @ 16:15 by Sabrina Dodson PA-C) History of bilateral hip replacements Family History Family History (Updated 10/19/23 @ 15:32 by Tressa Marcial RN) Mother Cervical cancer Macular degeneration Diabetes type 1, controlled Social History Social History (Updated 10/19/23 @ 14:16 by Sabrina Dodson PA-C) Social History: Surrogate medical decision maker: Emanuel Dudleyn, spouse. Code status: Full code. Smoking status: Never smoker Second hand tobacco smoke exposure: Yes Alcohol intake: current Drinks per week: 7 Substance use: never Lack of Transportation: No Lack of Food: Never True Current Housing: I Have Housing Concerned About Future Housing: No Difficulty Paying Gas/Electric Bills: No Difficulty Paying for Meds: No Currently Unemployed: No Education: Bachelor's Degree Difficulty w/ Childcare or Family Care: No Spiritual care concerns: No Exam Narrative: GENERAL: Well-appearing, well-nourished, and in no acute distress. HEAD: Normocephalic, atraumatic. EYES: PERRLA and EOMI. ENT: Nares clear, no rhinorrhea or epistaxis. Mucous membranes moist. Oropharynx without tonsillar hypertrophy exudate or other lesions. NECK: Supple. No adenopathy or masses. CHEST: No respiratory distress. Clear to auscultation. No wheezes rales or rhonchi HEART: Regular rate and rhythm. No murmur heard. Normal peripheral pulses. ABDOMEN: Soft, nontender, nondistended, normal active bowel sounds. MSK: Moderate swelling to the right hand. Range of motion affected due to pain. Skin is otherwise intact. Negative [place] signs SKIN: Significant swelling and erythema to the dorsum of the right hand. Palmar side is unaffected. The redness extends into the wrist and there is streaking erythema to the medial right forearm. Marked tenderness to the area as well. No area of fluctuance or induration. NEURO: Alert and oriented x3. No focal deficits. PSYCH: Normal mood and affect. Course Vital Signs Vital signs: Vital Signs Temperature 97.4 F L 10/19/23 10:03 Pulse Rate 84 10/19/23 10:03 Respiratory Rate 16 10/19/23 10:03 Blood Pressure 150/88 H 10/19/23 10:03 Pulse Oximetry 98 10/19/23 10:03 Temperature 97.4 F L 10/19/23 10:03 Pulse Rate 91 10/19/23 13:2
[2023-10-19] MEDS: AMPICILLIN SULB 3 GM/NS 100 ML 3 GM/100 ML VIAL IVPB ×2 (11:47→18:13)
[2023-10-19] MEDS: KETOROLAC 15 MG/ML VIAL (*BKC) IV PUSH (12:43)
[2023-10-19] MEDS: SODIUM CHLORIDE 0.9% IV 1,000 ML 125 ML IV CONT ×2 (12:43→19:40)
[2023-10-19 13:26] VITALS: BP 123/77; PULSE 91; RESP 16; O2SAT 96
--- NOTE | 2023-10-19 13:39 | ADMGEN ---
Addendum entered by Tressa Marcial RN 10/19/23 14:09: Patient admitted to 2nd Medical Room 243. Original Note: This patient, Brenna Mendosa, was admitted to -. Patient/family oriented to hospital policies and general routines including ID bracelet, bed and alarms, visiting hours, pain management, procedures, bathroom and other care routines, personal items, smoking policy, room service/diet, and visiting hours. Information on how to activate the Rapid Response Team has been discussed. Patient/Family are encouraged to report perceived risks to care and to ask questions if they do not understand what they are told or what they should do.
--- NOTE | 2023-10-19 14:14 | PM.IMHP ---
H&P: HPI History of Present Illness Date/Time: 10/19/23 14:45 Chief Complaint: Cat bite. Narrative: This is a 63-year-old female with hypertension who presented to the emergency department via private vehicle from urgent care for evaluation of a cat bite. The patient provides the following history. Her indoor, vaccinated cat bit her on the back of the right hand approximately 24 hours ago and she reports increasing swelling, redness, and pain since that time. She has troubles making a fist due to the swelling and pain. She denies paresthesias and numbness of the fingers on the right hand. She denies fever, chills, sweats, nausea, and vomiting. She was afebrile on arrival with stable vital signs. Labs were significant for a WBC count of 8.9, MCV 106.2, sodium 133, chloride 97, total bilirubin 0.4, AST 42, CRP 2.2. She was given a dose of Unasyn in the ED and she is being admitted in this setting for further IV antibiotics. Review of Systems Review of Systems: 12 systems were reviewed. No recent cold or flu symptoms. She denies fever, chills, and sweats. Daughter mentions that she has been having issues with memory loss. No focal weakness or paresthesias. She had a recent eye surgery for detached retina and is currently wearing an eye patch. Appetite has been okay. She has been eating and drinking as per usual. No diarrhea or dysuria. Except as documented, all other systems were reviewed and are negative. [facility] Past Medical History Medical History (Updated 10/19/23 @ 14:19 by Sabrina Dodson PA-C) Anxiety Eczema Hypertension Surgical History Surgical History (Updated 10/19/23 @ 16:15 by Sabrina Dodson PA-C) History of bilateral hip replacements Family History Family History (Updated 10/19/23 @ 15:32 by Tressa Marcial RN) Mother Cervical cancer Macular degeneration Diabetes type 1, controlled Social History Social History (Updated 10/19/23 @ 21:09 by Sabrina Dodson PA-C) Social History: Surrogate medical decision maker: Emanuel Dudleyn, spouse. Code status: Full code. Smoking status: Never smoker Second hand tobacco smoke exposure: Yes Alcohol intake: current Drinks per week: 7 Alcohol use details: One glass of wine a night. Substance use: never Lack of Transportation: No Lack of Food: Never True Current Housing: I Have Housing Concerned About Future Housing: No Difficulty Paying Gas/Electric Bills: No Difficulty Paying for Meds: No Currently Unemployed: No Education: Bachelor's Degree Difficulty w/ Childcare or Family Care: No Spiritual care concerns: No Meds Home Medications and Allergies Allergies Allergy/AdvReac Type Severity Reaction Status Date / Time hydrochlorothiazide Allergy Intermediate Other Verified 10/19/23 18:56 atropine AdvReac Intermediate Fever Verified 10/19/23 10:51 Vital Signs Vital Signs - 24 hr 10/19/23 10:03 10/19/23 10:50 10/19/23 13:26 Temperature 97.4 F L Pulse Rate 84 76 91 Respiratory Rate 16 20 16 Blood Pressure 150/88 H 151/83 H 123/77 Pulse Oximetry 98 100 96 Exam Narrative: General: Well-developed, nontoxic-appearing female sitting up in bed in no acute distress. Weight: 54.5 kg. BMI: 21.3. HEENT: PERRL, EOMI. Sclera anicteric. Tacky mucous membranes. Neck: Supple. Respiratory: Lungs are clear to auscultation bilaterally. Cardiovascular: Regular rate and rhythm with S1-S2. Gastrointestinal: Abdomen is soft, nontender, and nondistended with positive bowel sounds. Skin: Warm and dry. The dorsum of the right hand is edematous, indurated, erythematous, and warm. The edema and erythema extend onto the wrist and forearm. There are wounds consistent with cat bite without discharge. No fluctuance noted. Extremities: No cyanosis, clubbing, or edema. Radial and pedal pulses intact. Neurological: Alert. Cranial nerves 2-12 are grossly intact. No gross focal deficits to casual conversation. Psychiatric:
[2023-10-19 15:02] VITALS: BMI 21.2
--- NOTE | 2023-10-19 17:01 | PC.NURSE ---
Patient showing signs of confusion and some anxiety this evening. RN called spouse, Drew, who reports patient having short term memory loss and confusion at times. Patient was relocated to room 245 to be closer to nurses station for closer observation. Patient spouse notified of room change.
[2023-10-19] MEDS: MORPHINE SULFATE (*CRX) 2 MG/ML INJ IV PUSH (18:12)
[2023-10-19] MEDS: HYDROcodone/acetaminophen (*CRX) 5-325 MG TABLET 1 TAB PO (19:38)
[2023-10-19 20:00] VITALS: PULSE 91; RESP 16; O2SAT 96
[2023-10-19 20:56] VITALS: BP 133/69; PULSE 82; RESP 18; TEMP 37.4; O2SAT 95
[2023-10-20] MEDS: AMPICILLIN SULB 3 GM/NS 100 ML 3 GM/100 ML VIAL IVPB ×5 (00:46→23:38)
[2023-10-20] MEDS: HYDROcodone/acetaminophen (*CRX) 5-325 MG TABLET 1 TAB PO ×2 (02:07→08:16)
[2023-10-20] MEDS: MORPHINE SULFATE (*CRX) 2 MG/ML INJ IV PUSH ×2 (03:11→12:53)
[2023-10-20 05:17] VITALS: BP 125/66; PULSE 68; RESP 20; TEMP 37.7; O2SAT 93
[2023-10-20 05:34] LABS: Hematocrit 35.4 % (37.0-47.0); Hemoglobin 11.8 g/dL (12.0-15.0); Mean Corpuscular HGB Conc 33.3 g/dl (32-36); Mean Corpuscular Hemoglobin 35.5 pg (26-34); Mean Corpuscular Volume 106.6 fl (80-100); Mean Platelet Volume 10.3 fl (7.4-10.4); Platelet Count Result 203 k/mm3 (150-375); Red Blood Count 3.32 M/mm3 (4.2-5.4); Red Cell Distribution Width 11.8 % (11.5-14.5); White Blood Count 10.1 K/mm3 (4.5-10.0)
[2023-10-20 05:46] LABS: Anion Gap 8 mmol/L (8-16); Blood Urea Nitrogen 8 mg/dL (7-17); Calcium 8.3 mg/dL (8.4-10.2); Carbon Dioxide 22 mmol/L (22-30); Chloride 99 mmol/L (98-107); Estimated CRCL calculation 168 ml/min; Estimated Glomerular Filt Rate > 60; Glucose 154 mg/dL (65-110); Magnesium 1.5 mg/dL (1.6-2.3); Potassium 2.8 mmol/L (3.4-5.0); Sodium 129 mmol/L (137-145)
[2023-10-20] MEDS: POTASSIUM CHLORIDE 20 MEQ ER TABLET 80 MEQ PO (06:08)
[2023-10-20] MEDS: MAGNESIUM SULF 4 GM/WATER100ML 4 GM/100 ML BAG IVPB (06:09)
[2023-10-20 06:43] LABS: Folic Acid 10.1 ng/mL (2.76->20)
--- NOTE | 2023-10-20 12:33 | PM.IMPN ---
Progress Note: A&P Assessment and Plan (1) Cellulitis of right hand: Code(s): L03.113 - Cellulitis of right upper limb Status: Acute Assessment and Plan: The patient presented to the emergency department for evaluation of a red, painful, and swollen right hand following a cat bite. cat bite happened several days prior to presentation to the ER. Started on Unasyn. Blood cultures no growth to date Analgesics available as needed. Patient encouraged to elevate the extremity as much as possible. Continue to monitor closely for the development of abscess. Does have possible streaking up her arm. Dr. Morrell consulted. (2) Cat bite of right hand: Code(s): S61.451A - Open bite of right hand, initial encounter; W55.01XA - Bitten by cat, initial encounter Status: Acute Assessment and Plan: See above (3) Electrolyte imbalance: Code(s): E87.8 - Other disorders of electrolyte and fluid balance, not elsewhere classified Status: Acute Assessment and Plan: 10/20/23 found to have potassium of 2.8 with a magnesium of 1.5. Both replaced as necessary. Monitor daily labs (4) Elevated MCV: Code(s): R71.8 - Other abnormality of red blood cells Status: Acute Assessment and Plan: B12 and folate within normal limits (5) Hypertension: Code(s): I10 - Essential (primary) hypertension Status: Acute Assessment and Plan: continue home medications Plan MCV is a bit elevated and with reports of slight memory loss, will check B12 levels. She reportedly drinks 1 glass of wine a night and her AST is a bit elevated as well. Her blood pressures were reviewed and they have been stable. Her home medications will be reviewed and resumed as appropriate. Findings and treatment plan were discussed with the patient. Questions were solicited and answered to satisfaction. The patient's medical management will be taken over by the hospitalist team in a.m. Subjective Date/time seen: 10/20/23 12:33 Interval history: Patient doing well today. According to patient and her the redness has improved on her right hand although the swelling is still present. Patient still has difficulty making a fist. She is still in a pretty significant amount of pain due to the swelling. According to the patient and her the cat bite happened approximately 5 days, +/-1 day, prior to ED presentation. Both patient and are poor historians. She believes that she may have had a fever but never took her temperature at home. Her temperature this morning was 99.9. Concern for lymphangitis. Dr. Morrell was consulted. Exam Narrative: GENERAL: Comfortable, no acute distress HENMT: moist mucous membranes EYES: EOM intact b/l NECK: no lymphadenopathy RESPIRATORY: clear to auscultation CARDIO: RRR GI: soft, nontender, bowel sounds present SKIN: Right hand to mid forearm edema and erythema. Concern for lymphangitis up the right forearm. Warm and tender to the touch. Two puncture wounds seen on the lateral side of the hand at the base of 5th finger. EXTREMITIES: no lower extremity edema, redness or tenderness Objective Data Vital Signs Vital Signs: Vital Signs - 24 hr 10/19/23 13:26 10/19/23 20:56 10/19/23 20:00 Temperature 99.3 F Pulse Rate 91 82 91 Respiratory Rate 16 18 16 Blood Pressure 123/77 133/69 Pulse Oximetry 96 95 96 Oxygen Delivery Room Air 10/20/23 05:17 Temperature 99.9 F H Pulse Rate 68 Respiratory Rate 20 Blood Pressure 125/66 Pulse Oximetry 93 Oxygen Delivery Intake/Output Intake/Output: Intake & Output 10/17/23 10/18/23 10/19/23 10/20/23 23:59 23:59 23:59 23:59 Intake Total 440 840 Balance 440 840 Meds/Results Medications: Active Medications Generic Name Dose Route Start Last Admin Trade Name Freq PRN Reason Stop Dose Admin Acetaminophen 650 mg 10/19/23 14:1
[2023-10-20 13:30] LABS: Anion Gap 6 mmol/L (8-16); Blood Urea Nitrogen 7 mg/dL (7-17); Calcium 8.2 mg/dL (8.4-10.2); Carbon Dioxide 26 mmol/L (22-30); Chloride 99 mmol/L (98-107); Estimated CRCL calculation 122 ml/min; Estimated Glomerular Filt Rate > 60; Glucose 145 mg/dL (65-110); Magnesium 2.5 mg/dL (1.6-2.3); Potassium 3.3 mmol/L (3.4-5.0); Sodium 131 mmol/L (137-145)
[2023-10-20 14:00] VITALS: BP 142/86; PULSE 71; RESP 12; TEMP 37.5; O2SAT 98
[2023-10-20] MEDS: POTASSIUM CHLORIDE INJ 40 MEQ in SODIUM CHLORIDE 0.9% IV 500 ML 130 MEQ IVPB (14:15)
[2023-10-20 20:10] VITALS: TEMP 37.3
[2023-10-20] MEDS: ACETAMINOPHEN 325 MG TABLET 650 MG PO (20:10)
[2023-10-20 20:12] VITALS: BP 159/84; PULSE 88; RESP 17; TEMP 37.7; O2SAT 95
[2023-10-20 21:10] VITALS: TEMP 37.2
[2023-10-20 21:15] VITALS: TEMP 37.2
[2023-10-21 03:26] VITALS: BP 148/90; PULSE 120; RESP 18; TEMP 37.2; O2SAT 99
[2023-10-21 03:37] VITALS: BP 148/90; PULSE 120; RESP 18; TEMP 37.2; O2SAT 99
[2023-10-21 05:14] VITALS: BP 144/76; PULSE 84; RESP 17; TEMP 37.3; O2SAT 98
[2023-10-21] MEDS: AMPICILLIN SULB 3 GM/NS 100 ML 3 GM/100 ML VIAL IVPB ×3 (05:38→17:19)
[2023-10-21 06:04] LABS: Hematocrit 40.1 % (37.0-47.0); Hemoglobin 13.3 g/dL (12.0-15.0); Mean Corpuscular HGB Conc 33.2 g/dl (32-36); Mean Corpuscular Hemoglobin 35.7 pg (26-34); Mean Corpuscular Volume 107.5 fl (80-100); Mean Platelet Volume 10.1 fl (7.4-10.4); Platelet Count Result 194 k/mm3 (150-375); Red Blood Count 3.73 M/mm3 (4.2-5.4); Red Cell Distribution Width 11.6 % (11.5-14.5); White Blood Count 10.3 K/mm3 (4.5-10.0)
[2023-10-21 06:25] LABS: Alanine Aminotransferase 22 U/L (6-35); Albumin Level 3.9 g/dL (3.5-5.1); Alkaline Phosphatase 58 U/L (38-126); Anion Gap 8 mmol/L (8-16); Aspartate Amino Transferase 34 U/L (14-36); Bilirubin,Total 1.7 mg/dL (0.2-1.3); Blood Urea Nitrogen 6 mg/dL (7-17); Calcium 8.8 mg/dL (8.4-10.2); Carbon Dioxide 25 mmol/L (22-30); Chloride 99 mmol/L (98-107); Estimated CRCL calculation 122 ml/min; Estimated Glomerular Filt Rate > 60; Glucose 132 mg/dL (65-110); Magnesium 2.2 mg/dL (1.6-2.3); Potassium 3.4 mmol/L (3.4-5.0); Sodium 132 mmol/L (137-145)
--- NOTE | 2023-10-21 11:59 | WPDCN ---
Assessment and Plan Assessment and plan (1) Cat bite of right hand: Qualifiers: Encounter type: initial encounter Qualified Code(s): S61.451A - Open bite of right hand, initial encounter; W55.01XA - Bitten by cat, initial encounter Code(s): S61.451A - Open bite of right hand, initial encounter; W55.01XA - Bitten by cat, initial encounter Status: Acute Assessment and Plan: 63yo female with right hand cat bite cellulitis improving with conservative mgmt xray images reviwed and agree with report reviwed ER and hospitalist notes discussed impression and Dx and hopeful expecation for continued healing with conservative mgmt no surgical intervention indicated at this time Plan: 1) cont iv abx per primary 2) elevation 3) warm compresses or warm water soaks bid-tid 4) f/u after discharge for OT referral if stiffness and edema not improving (2) Cellulitis of right hand: Code(s): L03.113 - Cellulitis of right upper limb Status: Acute HPI Data of Consult Date/Time: 10/21/23 11:59 Requesting Physician: Lu Chester MD Primary Care Provider: Nydia Barros, [facility] Consult Narrative Narrative: Brenna Mendosa is a 63 year old female admitted for right hand cat bite cellulitis. bitten on dorsum right hand ~3 days ago and developed painful swelling and redness right hand. presented to ER and admitted for IV abx notes interval improvement in pain and swelling though still notable. PMFSH Past Medical History Medical History (Updated 10/21/23 @ 12:01 by Lidia Gutierrez MD) Anxiety Eczema Hypertension Surgical History Surgical History (Updated 10/19/23 @ 16:15 by Sabrina Dodson PA-C) History of bilateral hip replacements Family History Family History (Updated 10/19/23 @ 15:32 by Tressa Marcial RN) Mother Cervical cancer Macular degeneration Diabetes type 1, controlled Social History Social History (Updated 10/19/23 @ 21:09 by Sabrina Dodson PA-C) Social History: Surrogate medical decision maker: Emanuel Mendosa, spouse. Code status: Full code. Smoking status: Never smoker Second hand tobacco smoke exposure: Yes Alcohol intake: current Drinks per week: 7 Alcohol use details: One glass of wine a night. Substance use: never Lack of Transportation: No Lack of Food: Never True Current Housing: I Have Housing Concerned About Future Housing: No Difficulty Paying Gas/Electric Bills: No Difficulty Paying for Meds: No Currently Unemployed: No Education: Bachelor's Degree Difficulty w/ Childcare or Family Care: No Spiritual care concerns: No Meds Home Medications and Allergies Home Medications Medication Instructions Recorded Confirmed Type No Home Medications 10/20/23 10/20/23 History Allergies Allergy/AdvReac Type Severity Reaction Status Date / Time hydrochlorothiazide Allergy Intermediate Other Verified 10/19/23 18:56 atropine AdvReac Intermediate Fever Verified 10/19/23 10:51 Vital Signs Vital Signs - 24 hr 10/20/23 14:00 10/20/23 20:10 10/20/23 20:12 Temperature 37.5 C 37.3 C 37.7 C H Pulse Rate 71 88 Respiratory Rate 12 17 Blood Pressure 142/86 H 159/84 H Pulse Oximetry 98 95 Oxygen Delivery 10/20/23 21:15 10/20/23 21:10 10/20/23 20:00 Temperature 37.2 C 37.2 C Pulse Rate Respiratory Rate Blood Pressure Pulse Oximetry Oxygen Delivery Room Air 10/21/23 03:26 10/21/23 03:37 10/21/23 05:14 Temperature 37.2 C 37.2 C 37.3 C Pulse Rate 120 H 120 H 84 Respiratory Rate 18 18 17 Blood Pressure 148/90 H 148/90 H 144/76 H Pulse Oximetry 99 99 98 Oxygen Delivery Exam Narrative: Gen: right hand warm and hyperemic/erythematous with single dorsal puncture wound with dry eschar. no flucutance. minimal tenderness. ROM: limtied from swelling but moves spontaneously and no pain on passive stretch Vascular: Warm and well perfused Sensation: In
--- NOTE | 2023-10-21 12:03 | PM.IMPN ---
Progress Note: A&P Assessment and Plan (1) Cellulitis of right hand: Code(s): L03.113 - Cellulitis of right upper limb Status: Acute Assessment and Plan: The patient presented to the emergency department for evaluation of a red, painful, and swollen right hand following a cat bite. cat bite happened several days prior to presentation to the ER. Started on Unasyn, add doxy for MRSA coverage. Blood cultures no growth to date Analgesics available as needed. Patient encouraged to elevate the extremity as much as possible. Continue to monitor closely for the development of abscess. Plastic surgery consulted (2) Cat bite of right hand: Qualifiers: Encounter type: initial encounter Qualified Code(s): S61.451A - Open bite of right hand, initial encounter; W55.01XA - Bitten by cat, initial encounter Code(s): S61.451A - Open bite of right hand, initial encounter; W55.01XA - Bitten by cat, initial encounter Status: Acute Assessment and Plan: See above (3) Electrolyte imbalance: Code(s): E87.8 - Other disorders of electrolyte and fluid balance, not elsewhere classified Status: Acute Assessment and Plan: 10/20/23 found to have potassium of 2.8 with a magnesium of 1.5. Both replaced as necessary. Monitor daily labs (4) Elevated MCV: Code(s): R71.8 - Other abnormality of red blood cells Status: Acute Assessment and Plan: B12 and folate within normal limits (5) Hypertension: Code(s): I10 - Essential (primary) hypertension Status: Acute Assessment and Plan: continue home medications (6) Hyperbilirubinemia: Code(s): E80.6 - Other disorders of bilirubin metabolism Status: Acute Assessment and Plan: Bilirubin 1.7 today. Abdominal ultrasound without explanation of etiology. Continue to monitor Subjective Date/time seen: 10/21/23 12:03 Interval history: patient doing well today. She is a poor historian. She does have a sitter at bedside. According the nurse patient tried to get out of bed with 's help yesterday evening and had a fall. She is intermittently confused and a very poor historian. She does have appointment with neurologist in a couple months due to her memory and cognition issues. She states that the pain is better today and her wrist to just a little sore she still has difficulty making a fist. Denies any body aches, chills, nausea vomiting. Exam Narrative: GENERAL: Comfortable, no acute distress HENMT: moist mucous membranes EYES: EOM intact b/l NECK: no lymphadenopathy RESPIRATORY: clear to auscultation CARDIO: RRR GI: soft, nontender, bowel sounds present SKIN: Right hand to mid forearm edema and erythema. Concern for lymphangitis up the right forearm. Warm and tender to the touch. Two puncture wounds seen on the lateral side of the hand at the base of 5th finger. Erythema is improved. EXTREMITIES: no lower extremity edema, redness or tenderness Objective Data Vital Signs Vital Signs: Vital Signs - 24 hr 10/20/23 14:00 10/20/23 20:10 10/20/23 20:12 Temperature 99.5 F 99.1 F 99.9 F H Pulse Rate 71 88 Respiratory Rate 12 17 Blood Pressure 142/86 H 159/84 H Pulse Oximetry 98 95 Oxygen Delivery 10/20/23 21:15 10/20/23 21:10 10/20/23 20:00 Temperature 99.0 F 99.0 F Pulse Rate Respiratory Rate Blood Pressure Pulse Oximetry Oxygen Delivery Room Air 10/21/23 03:26 10/21/23 03:37 10/21/23 05:14 Temperature 99.0 F 99.0 F 99.2 F Pulse Rate 120 H 120 H 84 Respiratory Rate 18 18 17 Blood Pressure 148/90 H 148/90 H 144/76 H Pulse Oximetry 99 99 98 Oxygen Delivery Intake/Output Intake/Output: Intake & Output 10/18/23 10/19/23 10/20/23 10/21/23 23:59 23:59 23:59 23:59 Intake Total 440 1730 340 Balance 440 1730 340 Meds/Results Medications: Active Medication
[2023-10-21] MEDS: MAGNESIUM SULF 2 GM/WATER 50ML 2 GM/50 ML BAG IVPB (13:31)
[2023-10-21] MEDS: DOXYCYCLINE HYCLATE 100 MG TABLET PO ×2 (13:32→20:25)
[2023-10-21 14:00] VITALS: BP 132/75; PULSE 70; RESP 17; TEMP 36.7; O2SAT 98
[2023-10-21 19:55] VITALS: PULSE 70; RESP 17; O2SAT 98
[2023-10-21 22:00] VITALS: BP 151/87; PULSE 76; RESP 20; TEMP 36.6; O2SAT 99
[2023-10-22] MEDS: AMPICILLIN SULB 3 GM/NS 100 ML 3 GM/100 ML VIAL IVPB ×3 (00:22→12:11)
[2023-10-22] MEDS: HYDROcodone/acetaminophen (*CRX) 5-325 MG TABLET 1 TAB PO (01:39)
[2023-10-22 05:19] LABS: Basophils Percent Auto 0.5 % (0.2-1.2); Eosinophils Percent Auto 0.3 % (0-4.4); Hematocrit 33.4 % (37.0-47.0); Hemoglobin 11.1 g/dL (12.0-15.0); Immature Granulocyte Absolute 0.03 K/mm3 (0.00-0.031); Immature Granulocyte Percent A 0.5 % (0-0.5); Lymphocytes Absolute Auto 1.28 K/mm3 (0.9-3.2); Lymphocytes Percent Auto 19.4 % (18.3-44.2); Mean Corpuscular HGB Conc 33.2 g/dl (32-36); Mean Corpuscular Hemoglobin 35.4 pg (26-34); Mean Corpuscular Volume 106.4 fl (80-100); Mean Platelet Volume 10.1 fl (7.4-10.4); Monocytes Absolute Auto 0.9 K/mm3 (0.1-0.6); Monocytes Percent Auto 13.5 % (2.6-8.5); Neutrophils Absolute Auto 4.3 K/mm3 (1.3-6.7); Neutrophils Percent Auto 65.8 % (45.5-73.1); Platelet Count Result 198 k/mm3 (150-375); Red Blood Count 3.14 M/mm3 (4.2-5.4); Red Cell Distribution Width 11.6 % (11.5-14.5); White Blood Count 6.6 K/mm3 (4.5-10.0)
[2023-10-22 05:34] VITALS: BP 159/84; PULSE 68; RESP 20; TEMP 36.6; O2SAT 97
[2023-10-22 05:35] LABS: Alanine Aminotransferase 16 U/L (6-35); Albumin Level 3.1 g/dL (3.5-5.1); Alkaline Phosphatase 52 U/L (38-126); Anion Gap 3 mmol/L (8-16); Aspartate Amino Transferase 27 U/L (14-36); Bilirubin,Total 1.1 mg/dL (0.2-1.3); Blood Urea Nitrogen 8 mg/dL (7-17); Calcium 8.3 mg/dL (8.4-10.2); Carbon Dioxide 29 mmol/L (22-30); Chloride 101 mmol/L (98-107); Estimated CRCL calculation 95 ml/min; Estimated Glomerular Filt Rate > 60; Glucose 104 mg/dL (65-110); Sodium 133 mmol/L (137-145)
--- NOTE | 2023-10-22 07:08 | PM.IMPN ---
Progress Note: A&P Assessment and Plan (1) Cellulitis of right hand: Code(s): L03.113 - Cellulitis of right upper limb Status: Acute Assessment and Plan: 10/21/23 The patient presented to the emergency department for evaluation of a red, painful, and swollen right hand following a cat bite. cat bite happened several days prior to presentation to the ER. Started on Unasyn, add doxy for MRSA coverage. Blood cultures no growth to date Analgesics available as needed. Patient encouraged to elevate the extremity as much as possible. Continue to monitor closely for the development of abscess. Plastic surgery consulted 10/22/23: (2) Cat bite of right hand: Qualifiers: Encounter type: initial encounter Qualified Code(s): S61.451A - Open bite of right hand, initial encounter; W55.01XA - Bitten by cat, initial encounter Code(s): S61.451A - Open bite of right hand, initial encounter; W55.01XA - Bitten by cat, initial encounter Status: Acute Assessment and Plan: See above (3) Electrolyte imbalance: Code(s): E87.8 - Other disorders of electrolyte and fluid balance, not elsewhere classified Status: Acute Assessment and Plan: 10/21/23 found to have potassium of 2.8 with a magnesium of 1.5. Both replaced as necessary. Monitor daily labs 10/22/23: (4) Elevated MCV: Code(s): R71.8 - Other abnormality of red blood cells Status: Acute Assessment and Plan: 10/21/23: B12 and folate within normal limits 10/22/23: (5) Hypertension: Code(s): I10 - Essential (primary) hypertension Status: Acute Assessment and Plan: 10/21/23: continue home medications 10/22/23: (6) Hyperbilirubinemia: Code(s): E80.6 - Other disorders of bilirubin metabolism Status: Acute Assessment and Plan: 10/21/23: Bilirubin 1.7 today. Abdominal ultrasound without explanation of etiology. Continue to monitor 10/22/23: Time Spent With Patient Time with patient: Greater than 35 minutes Subjective Date/time seen: 10/22/23 07:08 Interval history: This is a 63 year old female who presented to the hospital on 10/19/23 for evaluation of a cat bite that has progressively worsened with swelling and redness. She was initially seen at urgent care and was prompted to come to the hospital from there. Work up in hospital included a x-ray of right had which shown moderate-severe polyarticular osteoarthritis. She was started on Unasyn for antibiotic coverage and plastic surgery was consulted. On examination today patient is alert and oriented x1, she is on room air, and is afebrile. She denies any pain at this time. The swelling in her hand has significantly decreased. She has been improving on her ROM. Labs today revealed WBC 6.6, Hgb 11.1, Hct 33.4, Na+ 133, K+ 3.0, BUN 8, Creatinine 0.40, BG 104-132. Blood cultures x2 showing no growth. US of abdomen was negative for any acute intraabdominal process. Bili today1.1, liver enzymes are normal. Patient is stable for discharge. Review of Systems Review of Systems: All systems reviewed & are unremarkable except as noted in HPI and below Constitutional: Constitutional: Reports as per HPI and Reports no additional constitutional complaints Eyes: Eyes: Reports as per HPI and Reports no additional eye complaints ENT: Reports system reviewed and no additional complaints, except as documented and Reports as per HPI Cardiovascular: Cardiovascular: Reports as per HPI and Reports no additional cardiovascular complaints Respiratory: Respiratory: Reports as per HPI and Reports no additional respiratory complaints Gastrointestinal: Gastrointestinal: Reports as per HPI and Reports no additional gastrointestinal complaints Genitourinary: Genitourinary: Reports no additional female genitourinary complaints and Reports as per HPI Mus
[2023-10-22] MEDS: DOXYCYCLINE HYCLATE 100 MG TABLET PO (08:43)
[2023-10-22] MEDS: POTASSIUM CHLORIDE 20 MEQ ER TABLET 40 MEQ PO (08:44)
[2023-10-22] MEDS: ACETAMINOPHEN 325 MG TABLET 650 MG PO (12:13)
--- NOTE | 2023-10-22 13:14 | PM.DS ---
DS: Admitting Diagnosis Discharge Date 10/22/23 Admitting Diagnosis Cellulitis of the right hand Cat bite of right hand Elevated MCV HTN DS: Discharge Diagnosis Discharge Diagnosis (1) Cellulitis of right hand: Code(s): L03.113 - Cellulitis of right upper limb Status: Acute (2) Cat bite of right hand: Qualifiers: Encounter type: initial encounter Qualified Code(s): S61.451A - Open bite of right hand, initial encounter; W55.01XA - Bitten by cat, initial encounter Code(s): S61.451A - Open bite of right hand, initial encounter; W55.01XA - Bitten by cat, initial encounter Status: Acute (3) Electrolyte imbalance: Code(s): E87.8 - Other disorders of electrolyte and fluid balance, not elsewhere classified Status: Acute (4) Elevated MCV: Code(s): R71.8 - Other abnormality of red blood cells Status: Acute (5) Hypertension: Code(s): I10 - Essential (primary) hypertension Status: Acute (6) Hyperbilirubinemia: Code(s): E80.6 - Other disorders of bilirubin metabolism Status: Acute DS: Summary Hospital Course Reason for hospitalization: Cellulitis of the right hand Cat bite of right hand Elevated MCV Hypertension Hospital Course: This is a 63 year old female who presented to the hospital on 10/19/23 for evaluation of a cat bite that has progressively worsened with swelling and redness. She was initially seen at urgent care and was prompted to come to the hospital from there. Work up in hospital included a x-ray of right had which shown moderate-severe polyarticular osteoarthritis.? She was started on Unasyn for antibiotic coverage and plastic surgery was consulted.? On examination today patient is alert and oriented x1, she is on room air, and is afebrile. She denies any pain at this time. The swelling in her hand has significantly decreased. She has been improving on her ROM. Labs today revealed WBC 6.6, Hgb 11.1, Hct 33.4, Na+ 133, K+ 3.0, BUN 8, Creatinine 0.40, BG 104-132. Blood cultures x2 showing no growth. US of abdomen was negative for any acute intraabdominal process. Bili today 1.1, liver enzymes are normal. Patient is stable for discharge. She will finish a full 10 day course of antibiotics and need to follow up with PCP in the a.m. Status at Discharge Cognitive/behavioral status at discharge: Alert and oriented x1 Functional status at discharge: uses cane/walker Overall status at discharge: patient is not back to baseline Time Spent with Patient Time attestation: Total time spent providing and/or coordinating discharge services: Time spent: Greater than 30 minutes Exam Narrative: General: In no acute distress, well nourished Head: atraumatic, no encephalopathy Eyes:Patient has eye patch over right eye, left eye PERRLA, sclera clear ENT: moist mucous membranes, nasal passages clear Neck: supple, no JVD, no adenopathy, trachea midline Cardiac: Normal S1 and S2. No murmur, gallops or friction rubs, peripheral pulses intact. Respiratory: Lungs clear to auscultation, no adventitious lung sounds Gastrointestinal: soft, non-distended, non-tender, normoactive bowel sounds. : voiding without difficulty. Extremities: moves all extremities well, right hand ROM improving and able to make a fist Skin: right hand light pink, small puncture wound noted on hand, swelling significantly reduced Neuro: Alert and oriented x1, cranial nerves intact, no neuro deficits. Psych: normal mood, normal affect, interactive DS: Data Data Completed and Pending Completed studies during hospitalization: Hand X-ray Abdomen US Pending studies at discharge: Blood cultures x2 Labs on day of discharge: Labs from last 24 hours 10/22/23 05:02 WBC 6.6 RBC 3.14 L Hgb 11.1 L Hct 33.4 L MCV 106.4 H MCH 35.4 H MCHC 33.2 RDW 11.6 Plt Count 198 MPV 10.1 Immature Gran % (Auto) 0.5 Neut % (Auto) 65.8 Lymph % (Auto) 19.4 [place] % (Auto) 13.5 H
== END 2023-10-22 13:55 | disposition home or self-care (01) | DRG 603 ==
LOC: ANHED 13:06 → ANH2MED 14:03
PROVIDERS: Internal Medicine; Internal Medicine Critical Care Medicine; Physician Assistant; Admitting Provider Hospitalist; Emergency Provider Physician Assistant; PCP Nurse Practitioner; Visit Provider Nurse Practitioner Acute Care
DX: L03.113 Cellulitis of right upper limb (principal); S61.451A Open bite of right hand, initial encounter; W55.01XA Bitten by cat, initial encounter; E87.8 Other disorders of electrolyte and fluid balance, not elsewhere classified; I10 Essential (primary) hypertension; E80.6 Other disorders of bilirubin metabolism; M15.9 Polyosteoarthritis, unspecified; F41.9 Anxiety disorder, unspecified; L30.9 Dermatitis, unspecified; Z96.643 Presence of artificial hip joint, bilateral
CPT/HCPCS: 36415; 73120; 76705; 80048; 80053; 82607; 82746; 83605; 83735; 85025; 85027; 86140; 87040; 96365; 96375; 96376; 99212; 99285; A9270; G0378; G0463; J0295; J1885; J2270; J3475; J3480; J7030; J7040

== ENCOUNTER 2023-12-16 04:52 | Emergency (ER) | payer OTHER, SELFPAY ==
--- NOTE | ~2023-12-16 | XR_ITS ---
Portable chest x-ray Comparison: 09/08/2020 Clinical History: Right flank pain Findings: Lungs are clear, without focal consolidation or pleural effusion. Cardiomediastinal silho uette is stable. Bones and soft tissues are unremarkable. Impression: Normal chest. Reviewed, dictated and finalized at [facility]. GENCY DEPARTMENT TECHNICIAN Impression: Normal chest.
--- NOTE | ~2023-12-16 | XR_ITS ---
AP and oblique views of the bilateral ribs, and PA chest radiograph Clinical History: Pain Findings: No rib fracture is seen. Osseous alignment is anatomic. Lungs are clear, without focal cons olidation or pleural effusion. Cardiomediastinal contour is within normal limits. Soft tissues are un remarkable. Impression: No rib fracture is seen. Clear lungs. Reviewed, dictated and finalized at [facility]. LESOFT ANALYST Impression: No rib fracture is seen. Clear lungs.
--- NOTE | ~2023-12-16 | US_ITS ---
US abdomen limited INDICATION: Right flank pain PROCEDURE: Realtime right upper abdominal ultrasound. COMPARISON: No prior studies for comparison. FINDINGS: The pancreas is normal without focal mass or pancreatic ductal dilation. Liver echotexture is increased, consistent with fatty infiltration. There is normal directional flow in the portal ve in. The gallbladder is normal without stones, gallbladder wall thickening or pericholecystic fluid. Comm on bile duct measures 6 mm. No sonographic Cross's sign. IMPRESSION: 1: Fatty infiltration of the liver. Reviewed, dictated and finalized at location L. S PROMOTER
[2023-12-16 04:59] VITALS: BP 145/92; PULSE 90; RESP 15; TEMP 36.6; O2SAT 100
--- NOTE | 2023-12-16 07:33 | ED.BACK ---
HPI - Back Pain/Injury General Chief Complaint: Back Pain/Injury Stated Complaint: right flank pain Time Seen by Provider: 12/16/23 06:51 History of Present Illness HPI Narrative: [age] female presented to the emergency department for evaluation some intermittent right flank pain. Patient initially reported the pain to her 2 nights ago, pain was more frequent yesterday and last night patient states the pain acutely worsened. Patient states she does feel the pain when she takes a deep breath but denies any associated shortness of breath. Patient denies any falls or injuries patient denies any history of gallbladder disease or kidney stones. Related Data Allergies Allergy/AdvReac Type Severity Reaction Status Date / Time hydrochlorothiazide Allergy Intermediate Other Verified 12/16/23 05:27 atropine AdvReac Intermediate Fever Verified 12/16/23 05:27 Review of Systems Review of Systems: All systems reviewed & are unremarkable except as noted in HPI and below PMFSH Past Medical History Medical History (Updated 12/16/23 @ 10:28 by Darnell Paula MD) Anxiety Eczema Hypertension Surgical History Surgical History (Updated 10/19/23 @ 16:15 by Sabrina Dodson PA-C) History of bilateral hip replacements Family History Family History (Updated 10/19/23 @ 15:32 by Tressa Marcial RN) Mother Cervical cancer Macular degeneration Diabetes type 1, controlled Social History Social History (Updated 10/19/23 @ 21:09 by Sabrina Dodson PA-C) Social History: Surrogate medical decision maker: Emanuel Mendosa, spouse. Code status: Full code. Smoking status: Never smoker Second hand tobacco smoke exposure: Yes Alcohol intake: current Drinks per week: 7 Alcohol use details: One glass of wine a night. Substance use: never Lack of Transportation: No Lack of Food: Never True Current Housing: I Have Housing Concerned About Future Housing: No Difficulty Paying Gas/Electric Bills: No Difficulty Paying for Meds: No Currently Unemployed: No Education: Bachelor's Degree Difficulty w/ Childcare or Family Care: No Spiritual care concerns: No Exam Narrative: APPEARANCE: Well appearing, no pain, no distress, well-nourished. HEAD: normocephalic, atraumatic. EYES: PERRLA/EOMI, conjunctivae clear. NOSE: Normal no drainage EARS:TMS clear with good light reflex. THROAT: Pharynx clear, no exudate. NECK: Supple. No adenopathy, no masses. RESPIRATORY: Airway patent, respirations nonlabored. Clear to auscultation bilaterally, no rales, rhonchi, wheezing. CARDIOVASCULAR: Regular rate and rhythm without murmurs rubs or gallops. ABDOMINAL: Soft, nontender, nondistended, normal bowel sounds MUSCULOSKELETAL: Reproducible tenderness to right CVA with no overlying rash or crepitus NEURO: Alert. Cranial nerves II through XII intact. Grossly intact SKIN: Warm, dry. Normal Color Course Course Emergency Course: [age] old female presenting to the emergency department for evaluation right flank pain. The patient is afebrile with no leukocytosis and a stable hemoglobin. In patient's D-dimer was not elevated. No acute abnormalities the patient's CMP UA was negative for infection patient was negative for influenza RSV and for COVID ultrasound showed fatty infiltration of the liver with no evidence acute cholecystitis, rib x-ray showed no evidence of rib fracture and chest x-ray showed no acute cardiopulmonary abnormality. Patient was updated results of workup patient was encouraged to have Tylenol and ibuprofen for pain control. All questions concerns were addressed patient was well-appearing at time of discharge. Vital Signs Vital signs: Vital Signs Temperature 97.8 F 12/16/23 04:59 Pulse Rate 90 12/16/23 04:59 Respiratory Rate 15 12/16/23 04:59 Blood Pressure 145/92 H 12/16/23 04:59 Pulse Oximetry 100 12/16/23 04:59 Oxygen Delivery Room Air 12/16/23 04:59
[2023-12-16 07:34] VITALS: BP 114/88; PULSE 69; RESP 16; O2SAT 99
[2023-12-16] MEDS: HYDROcodone/acetaminophen (*CRX) 5-325 MG TABLET 1 TAB PO (07:41)
[2023-12-16] MEDS: CYCLOBENZAPRINE HCL 10 MG TABLET PO (07:41)
[2023-12-16 08:13] LABS: Basophils Percent Auto 0.5 % (0.2-1.2); Eosinophils Percent Auto 0.5 % (0-4.4); Hematocrit 38.3 % (37.0-47.0); Hemoglobin 12.5 g/dL (12.0-15.0); Immature Granulocyte Absolute 0.04 K/mm3 (0.00-0.031); Immature Granulocyte Percent A 0.7 % (0-0.5); Lymphocytes Absolute Auto 0.67 K/mm3 (0.9-3.2); Lymphocytes Percent Auto 11.7 % (18.3-44.2); Mean Corpuscular HGB Conc 32.6 g/dl (32-36); Mean Corpuscular Hemoglobin 35.6 pg (26-34); Mean Corpuscular Volume 109.1 fl (80-100); Mean Platelet Volume 10.2 fl (7.4-10.4); Monocytes Absolute Auto 0.8 K/mm3 (0.1-0.6); Monocytes Percent Auto 13.8 % (2.6-8.5); Neutrophils Absolute Auto 4.2 K/mm3 (1.3-6.7); Neutrophils Percent Auto 72.8 % (45.5-73.1); Platelet Count Result 156 k/mm3 (150-375); Red Blood Count 3.51 M/mm3 (4.2-5.4); Red Cell Distribution Width 12.8 % (11.5-14.5); White Blood Count 5.7 K/mm3 (4.5-10.0)
[2023-12-16 08:19] LABS: Alanine Aminotransferase 31 U/L (6-35); Albumin Level 3.5 g/dL (3.5-5.1); Alkaline Phosphatase 72 U/L (38-126); Anion Gap 6 mmol/L (8-16); Aspartate Amino Transferase 38 U/L (14-36); Bilirubin,Total 1.6 mg/dL (0.2-1.3); Blood Urea Nitrogen 7 mg/dL (7-17); Calcium 8.7 mg/dL (8.4-10.2); Carbon Dioxide 30 mmol/L (22-30); Chloride 97 mmol/L (98-107); Estimated CRCL calculation 95 ml/min; Estimated Glomerular Filt Rate > 60; Glucose 108 mg/dL (65-110); Potassium 3.5 mmol/L (3.4-5.0); Sodium 133 mmol/L (137-145)
[2023-12-16 08:26] LABS: Partial Thromboplastin Time 28.8 SECONDS (22.3-36.8); Prothrombin Time 13.1 Seconds (11.1-14.7)
[2023-12-16 08:29] LABS: D Dimer 0.43 ug/mL (<0.48)
[2023-12-16 08:55] LABS: Influenza A QL RT-PCR Negative (Negative); Influenza B QL RT-PCR Negative (Negative); RSV RNA, RT-PCR Negative (Negative); SARS-CoV-2 RNA PCR Negative (Negative)
[2023-12-16 09:38] VITALS: BP 134/86; PULSE 62; RESP 16; TEMP 36.6; O2SAT 100
[2023-12-16 09:46] VITALS: BP 127/75; PULSE 59; RESP 13; TEMP 36.6
[2023-12-16 10:09] LABS: Appearance Urine Clear (Clear); Bacteria Urine None Seen /hpf; Bilirubin Urine Negative (Negative); Blood Urine Negative (Negative); Color Urine Yellow (Yellow); Glucose Urine UA Negative (Negative); Ketones Urine Negative (Negative); Leukocyte Esterase Ur 1+ LEU/UL (Negative); Need Manual Microscopic Reviewed; Nitrate Urine Negative (Negative); Non Pathogenic Casts 0-2; Protein Urine Negative (Negative); RBC Urine 0-2 /hpf (0-2); Specific Grav Ur 1.005 (1.001-1.035); Squamous Epithelial Cell Urine None seen /hpf (Few); Urobilinogen Urine 0.2 mg/dL (<2.0); WBC Urine 0-5 /hpf; pH Urine 7.5 (5.0-9.0)
[2023-12-16 10:13] LABS: Add Urine Microscopic? YES
[2023-12-16 10:16] VITALS: BP 105/71; PULSE 61; RESP 16; TEMP 36.6; O2SAT 98
[2023-12-16 11:01] VITALS: BP 108/71; PULSE 62; RESP 13; TEMP 36.7; O2SAT 98
== END 2023-12-16 11:41 | disposition home or self-care (01) ==
PROVIDERS: Emergency Provider Emergency Medicine; PCP Nurse Practitioner
DX: R10.9 Unspecified abdominal pain (principal); Z20.822 Contact with and (suspected) exposure to COVID-19; I10 Essential (primary) hypertension; Z96.643 Presence of artificial hip joint, bilateral; K76.0 Fatty (change of) liver, not elsewhere classified
CPT/HCPCS: 36415; 71045; 71111; 76705; 80053; 81001; 85025; 85380; 85610; 85730; 87637; 99284; A9270

== ENCOUNTER 2024-06-11 13:12 | Outpatient (CLI) | payer MEDICARE, OTHER, SELFPAY ==
--- NOTE | ~2024-06-11 | XR_ITS ---
XR knee RT 3V 06/11/2024 13:29 Indication: Right knee pain Procedure: 3 views right knee Comparison: No prior studies for comparison. Findings: There is severe osteoarthritis of the right knee with chondrocalcinosis. Small joint effusi on. No fracture or traumatic malalignment. There is mild varus deformity. Impression: 1: Severe osteoarthritis of the right knee. Reviewed, dictated and finalized at location B. Impression: 1: Severe osteoarthritis of the right knee.
== END 2024-06-11 13:13 ==
PROVIDERS: PCP Nurse Practitioner; Visit Provider Nurse Practitioner
DX: M17.11 Unilateral primary osteoarthritis, right knee (principal)
CPT/HCPCS: 73562

== ENCOUNTER 2024-09-15 01:08 | Emergency (ER) | payer MEDICARE, OTHER, SELFPAY ==
--- NOTE | ~2024-09-15 | CT_ITS ---
EXAMINATION: CT abdomen pelvis w con DATE: 09/15/2024 03:20 INDICATION: Right flank pain. TECHNIQUE: Computed tomography (CT) of the abdomen and pelvis was performed with 100 mL Omnipaque 350 intravenous contrast. Automated exposure control and iterative reconstruction technique were employe d. The dose-length product was 451.78 mGy-cm. COMPARISON: CT chest 09/08/2020 FINDINGS: The visualized portions of the lung bases demonstrate mild atelectasis. No pleural effusion . The heart size is normal. There are coronary artery calcifications. No pericardial effusion. The li maye, gallbladder, spleen, pancreas, adrenal glands, and kidneys are normal. There are scattered diver ticula in the colon. There is wall thickening of the sigmoid colon with adjacent fat stranding. The a ppendix is normal. There are no dilated loops of bowel. There is liquid stool in the colon suggesting diarrhea. There is calcified atherosclerosis of the aorta and many of the other arteries. There are no pathologically enlarged lymph nodes. There is no free intraperitoneal fluid. There are bilateral t otal hip arthroplasties. Left-sided acetabular protrusio is noted. There is asymmetric liner wear in the left hip arthroplasty. There are periprosthetic lucencies adjacent to the left acetabular cup. Th ere is a periprosthetic fracture of left greater trochanter. There is moderate lumbar spondylosis. Th ere is a benign bone island in L5 vertebral body. IMPRESSION: 1. Sigmoid colitis, which may be diverticulitis. 2. Total left hip arthroplasty with asymmetric liner wear and periprosthetic lucencies adjacent to th e left acetabular cup, consistent with particle disease. Periprosthetic fracture of left greater troc hanter. Reviewed, dictated and finalized at location A. IMPRESSION: 1. Sigmoid colitis, which may be diverticulitis. 2. Total left hip arthroplasty with asymmetric liner wear and periprosthetic vladimir cencies adjacent to the left acetabular cup, consistent with particle disease. Periprosthetic fracture of left greater trochanter.
[2024-09-15 01:23] VITALS: BP 123/86; PULSE 88; RESP 14; TEMP 36.7; O2SAT 97
[2024-09-15 02:18] LABS: Basophils Percent Auto 0.3 % (0.2-1.2); Eosinophils Percent Auto 0.3 % (0-4.4); Hematocrit 40.2 % (37.0-47.0); Hemoglobin 13.5 g/dL (12.0-15.0); Immature Granulocyte Absolute 0.03 K/mm3 (0.00-0.031); Immature Granulocyte Percent A 0.3 % (0-0.5); Lymphocytes Absolute Auto 1.19 K/mm3 (0.9-3.2); Lymphocytes Percent Auto 12.6 % (18.3-44.2); Mean Corpuscular HGB Conc 33.6 g/dl (32-36); Mean Corpuscular Hemoglobin 33.8 pg (26-34); Mean Corpuscular Volume 100.8 fl (80-100); Monocytes Absolute Auto 1.2 K/mm3 (0.1-0.6); Monocytes Percent Auto 12.2 % (2.6-8.5); Neutrophils Percent Auto 74.3 % (45.5-73.1); Platelet Count Result 184 k/mm3 (150-375); Red Blood Count 3.99 M/mm3 (4.2-5.4); White Blood Count 9.5 K/mm3 (4.5-10.0)
[2024-09-15 02:20] VITALS: BP 131/85; PULSE 72; RESP 16; O2SAT 99
--- NOTE | 2024-09-15 02:21 | ED.BACK ---
HPI - Back Pain/Injury General Chief Complaint: Back Pain/Injury Stated Complaint: low back pain Time Seen by Provider: 09/15/24 01:48 History of Present Illness HPI Narrative: Patient is a 64-year-old female who presents to the emergency department this evening complaining of a right-sided flank pain. Patient states that the pain started around 4:00 p.m. this evening and she cannot tell me which she was doing when the pain started. Patient has a history of a detached retina, short-term memory loss and multiple hip surgeries. Family member present with her is her power of commonwealth attorney and provides the majority of the history as patient is a poor historian. Patient has been having some issues with her right knee and is currently in physical therapy for that. Patient had some physical therapy today and she is not sure if she did something to her back while she was at physical therapy. She denies lifting anything heavy, denies any recent falls or trauma to her back. Denies any urinary symptoms including dysuria or hematuria. No additional symptoms or concerns at this time. Related Data Home Medications Medication Instructions Recorded Confirmed dupilumab 300 mg/2 mL subcutaneous mg subcut 09/15/24 pen injector ([email or web address]) Allergies Allergy/AdvReac Type Severity Reaction Status Date / Time hydrochlorothiazide Allergy Intermediate Other Verified 09/15/24 01:14 atropine AdvReac Intermediate Fever Verified 09/15/24 01:14 Review of Systems Review of Systems: All systems are reviewed and are negative unless stated otherwise in the HPI. [facility] Past Medical History Medical History Anxiety Eczema Hypertension Surgical History Surgical History History of bilateral hip replacements Family History Family History Mother Cervical cancer Macular degeneration Diabetes type 1, controlled Social History Social History Social History: Surrogate medical decision maker: Emanuel Deondre, spouse. Code status: Full code. Smoking status: Never smoker Second hand tobacco smoke exposure: Yes Alcohol intake: current Drinks per week: 7 Alcohol use details: One glass of wine a night. Substance use: never Lack of Transportation: No Lack of Food: Never True Current Housing: I Have Housing Concerned About Future Housing: No Difficulty Paying Gas/Electric Bills: No Difficulty Paying for Meds: No Currently Unemployed: No Education: Bachelor's Degree Difficulty w/ Childcare or Family Care: No Spiritual care concerns: No Exam Narrative: General: Alert, awake, afebrile, in no acute distress. HEENT: PERRL, no rhinorrhea, no post nasal drip, oropharynx clear. Cardiovascular: Regular rate and rhythm, no murmurs, rubs or gallops, no peripheral edema. Respiratory: Clear to auscultation bilaterally, no tachypnea, no wheezing, no rhonchi, no rubs, no respiratory distress. Abdomen: Soft, nontender, nondistended, no rebound, no guarding, no peritoneal signs. Musculoskeletal: No joint swelling or deformity, normal muscle tone. Back: No midline tenderness to palpation over the cervical, thoracic or lumbar spine, no step-offs or deformities. Skin: No rashes or petechia, no signs of infection. Neurological: Alert and oriented to person, place, and time. Follows all commands. No focal deficits, speech is clear and fluent, gait intact and normal. Course Vital Signs Vital signs: Vital Signs Temperature 98.1 F 09/15/24 01:23 Pulse Rate 88 09/15/24 01:23 Respiratory Rate 14 09/15/24 01:23 Blood Pressure 123/86 09/15/24 01:23 Pulse Oximetry 97 09/15/24 01:23 Temperature 98.1 F 09/15/24 01:23 Pulse Rate 72 09/15/24 02:20 Respiratory Rate 16 09/15/24 02:20 Blood Pressure 131/85 09/15/24 02:20 Pulse Oximetry 99 09/15/24 02:20 MDM - Back Pain/Injury MDM Narrative Medical decision making narrative: The patient was evaluated by myself in the emergency department. History is obtained from patient and family member at bedside and physical exam was performed. External medical records were reviewed at this time. IV was established and pertinent tests were ordered. Patient declined any pain medication stating that she took ibuprofen before she got and is not currently in pain. Laboratory results obtained revealing no acute process. Urinalysis unremarkable. Imaging studies obtained included CT abdomen pelvis with IV contrast which was independently interpreted by me revealing diffuse annular thickening of the sigmoid colon with adjacent inflammatory changes, multiple inflamed diverticula are noted, finding favors acute diverticulitis. No evidence of colonic perforation or abscess. Normal appendix, no evidence of bowel obstruction. Patient was informed of these findings at bedside. Patient was also informed that she will be placed on an oral antibiotic for her diverticulitis and patient is agreeable with this plan. A Lidoderm patch was ordered over the patient's lumbosacral region and patient was informed that she will be provided with a script for Lidoderm patches to use as needed and patient is agreeable. Differential diagnosis considerations include musculoskeletal strain, pyelonephritis, renal colic, referred hip pain/arthritis. Comorbidities impacting this visit include none. I have evaluated and discussed social determinants of health with the patient that could potentially impact subsequent diagnosis and treatment plans. On repeat assessment of the patient, reevaluation revealed that the patient is doing well and is in no acute distress. Patient symptoms have remained stable since she arrived to our emergency department. Repeat vital signs were all reviewed and noted to be stable. Differential diagnosis and treatment plan were discussed with the patient at bedside. Patient agrees with discussion and after shared medical decision making agrees with discharge. All questions were answered to the patient's satisfaction. Patient will follow up with her primary care physician in 3-5 days. She was also provided with a GI referral and instructed to call to set up a follow-up appointment within the next week. A script for Augmentin was sent to patient's pharmacy along with a script for Lidoderm patches to use as needed for musculoskeletal pain. Patient was provided with strict return precautions and instructed to return to the emergency department if any new or worsening symptoms develop. The patient was discharged in stable condition. Lab Data 09/15/24 02:10 09/15/24 02:10 Labs: Lab Results 09/15/24 09/15/24 Range/Units 02:10 03:12 WBC 9.5 (4.5-10.0) K/mm3 RBC 3.99 L (4.2-5.4) M/mm3 Hgb 13.5 (12.0-15.0) g/dL Hct 40.2 (37.0-47.0) % MCV 100.8 H (80-100) fl MCH 33.8 (26-34) pg MCHC 33.6 (32-36) g/dl RDW 13.0 (11.5-14.5) % Plt Count 184 (150-375) k/mm3 MPV 10.0 (7.4-10.4) fl Immature Gran % (Auto) 0.3 (0-0.5) % Neut % (Auto) 74.3 H (45.5-73.1) % Lymph % (Auto) 12.6 L (18.3-44.2) % [place] % (Auto) 12.2 H (2.6-8.5) % Eos % (Auto) 0.3 (0-4.4) % Baso % (Auto) 0.3 (0.2-1.2) % Lymph # (Auto) 1.19 (0.9-3.2) K/mm3 [place] # (Auto) 1.2 H (0.1-0.6) K/mm3 Eos # (Auto) 0.0 (0-0.3) K/mm3 Baso # (Auto) 0.0 (0.0-0.1) K/mm3 Abs Immat Gran (auto) 0.03 (0.00-0.031) K/mm3 Absolute Neuts (auto) 7.0 H (1.3-6.7) K/mm3 Absolute Nucleated RBC 0.000 (0.0-0.012) K/mm3 Nucleated RBC % 0.0 (0.0-0.2) % Sodium 132 L (137-145) mmol/L Potassium 3.6 (3.4-5.0) mmol/L Chloride 97 L (98-107) mmol/L Carbon Dioxide 27 (22-30) mmol/L Anion Gap 8 (4-12) mmol/L BUN 7 (7-17) mg/dL Creatinine 0.40 L (0.7-1.0) mg/dL Estim Creat Clear Calc 98 ml/min Estimated GFR > 60 (59 - ) Glucose 138 H (65-110) mg/dL Lactic Acid 1.3 (0.7-2.0) mmol/L Calcium 9.4 (8.4-10.2) mg/dL Magnesium 1.6 (1.6-2.3) mg/dL Total Bilirubin 1.9 H (0.2-1.3) mg/dL AST 24 (14-36) U/L ALT 20 (6-35) U/L Alkaline Phosphatase 73 (38-126) U/L Total Protein 7.0 (6.3-8.2) g/dL Albumin 4.0 (3.5-5.1) g/dL Lipase 104 (23-300) U/L Urine Color Yellow (Yellow) Urine Appearance Clear (Clear) Urine pH 5.5 (5.0-9.0) Ur Specific [place] 1.006 (1.001-1.035) Urine Protein Negative (Negative) mg/dL Urine Glucose (UA) Negative (Negative) mg/dL Urine Ketones Negative (Negative) mg/dL Ur Blood (Man) Negative (Negative) Urine Nitrate Negative (Negative) Urine Bilirubin Negative (Negative) Urine Urobilinogen 0.2 (<2.0) mg/dL Leukocyte Esterase Rfl Trace H (Negative) GRADY/UL Urine RBC 0-2 (0-2) /hpf Urine WBC 0-5 (0-3) /hpf Ur Squamous Epith Cells None seen (Few) /hpf Urine Bacteria None seen /hpf Urine Casts 0-2 Discharge Plan Discharge Clinical Impression: Acute right flank pain, Acute diverticulitis, Strain of lumbar region Patient Disposition: Home, Self-Care Condition: Improved Instructions: Antibiotic Form, Diverticulitis (DC), Back Pain (ED) Additional Instructions: Please follow-up with your family doctor within the next 3-5 days return to the ED if any new or worsening symptoms develop. Take the prescribed antibiotic as instructed for your diverticulitis. You may use the Lidoderm patches as needed for your lower back pain. Prescriptions: New amoxicillin-pot clavulanate 875-125 mg tablet 1 tablet PO Q12H 10 Days Qty: 20 0RF lidocaine [Lidoderm] 5 % adhesive patch,medicated 1 patch topical DAILY Qty: 15 0RF Rx Instructions: leave on most painful area for up to 12 hrs No Action doxycycline hyclate 100 mg Tablet 100 mg PO Q12HR Qty: 16 0RF amoxicillin-pot clavulanate 875-125 mg tablet 1 tablet PO Q12H Qty: 16 0RF Dupixent Pen 300 mg/2 mL pen injector SUBCUT Follow-up/Referrals: Jayson Ness MD [Physician] - 3 Days Fiorella,MEMO Alicea [Primary Care Provider] - 1 Week Time of Disposition: 05:43
[2024-09-15 02:31] LABS: Alanine Aminotransferase 20 U/L (6-35); Alkaline Phosphatase 73 U/L (38-126); Anion Gap 8 mmol/L (4-12); Aspartate Amino Transferase 24 U/L (14-36); Bilirubin,Total 1.9 mg/dL (0.2-1.3); Blood Urea Nitrogen 7 mg/dL (7-17); Calcium 9.4 mg/dL (8.4-10.2); Carbon Dioxide 27 mmol/L (22-30); Chloride 97 mmol/L (98-107); Estimated CRCL calculation 98 ml/min; Estimated Glomerular Filt Rate > 60; Glucose 138 mg/dL (65-110); Lactic Acid Reflex 1.3 mmol/L (0.7-2.0); Lipase 104 U/L (23-300); Magnesium 1.6 mg/dL (1.6-2.3); Potassium 3.6 mmol/L (3.4-5.0); Sodium 132 mmol/L (137-145)
--- NOTE | 2024-09-15 03:20 | PC.NURSE ---
Pt assisted to BR via w/c. Pt able to ambulate short distances without pain.
[2024-09-15 03:26] LABS: Add Urine Microscopic? YES; Appearance Urine Clear (Clear); Bacteria Urine None Seen /hpf; Bilirubin Urine Negative (Negative); Blood Urine Negative (Negative); Color Urine Yellow (Yellow); Glucose Urine UA Negative (Negative); Ketones Urine Negative (Negative); Leukocyte Esterase Ur Trace LEU/UL (Negative); Nitrate Urine Negative (Negative); Non Pathogenic Casts 0-2; Protein Urine Negative (Negative); RBC Urine 0-2 /hpf (0-2); Specific Grav Ur 1.006 (1.001-1.035); Squamous Epithelial Cell Urine None Seen /hpf (Few); Urobilinogen Urine 0.2 mg/dL (<2.0); WBC Urine 0-5 /hpf (0-3); pH Urine 5.5 (5.0-9.0)
[2024-09-15] MEDS: LIDOCAINE 5% PATCH 1 PATCH TRANSDERM (06:01)
[2024-09-15 06:07] VITALS: BP 130/80; PULSE 77; RESP 16; TEMP 36.6; O2SAT 99
== END 2024-09-15 06:20 | disposition home or self-care (01) ==
PROVIDERS: Emergency Provider Emergency Medicine; PCP Nurse Practitioner
DX: K57.32 Diverticulitis of large intestine without perforation or abscess without bleeding (principal); S39.012A Strain of muscle, fascia and tendon of lower back, initial encounter; I10 Essential (primary) hypertension; L30.9 Dermatitis, unspecified; Z96.643 Presence of artificial hip joint, bilateral; Z77.22 Contact with and (suspected) exposure to environmental tobacco smoke (acute) (chronic); Z79.899 Other long term (current) drug therapy; X58.XXXA Exposure to other specified factors, initial encounter
CPT/HCPCS: 36415; 74177; 80053; 81001; 83605; 83690; 83735; 85025; 99284; A9270; Q9967

== ENCOUNTER 2025-02-25 11:11 | Outpatient (CLI) | payer MEDICARE, OTHER, SELFPAY ==
--- NOTE | ~2025-02-25 | XR_ITS ---
AP and lateral views of the left hip Clinical history: Pain Findings: No acute fracture or dislocation is seen. Left hip arthroplasty in place. Soft tissues are unremarkable. Impression: No acute abnormality is seen. Left hip arthroplasty in place. Reviewed, dictated and finalized at location . Impression: No acute abnormality is seen. Left hip arthroplasty in place.
--- NOTE | ~2025-02-25 | XR_ITS ---
Lumbosacral Spine: AP and lateral views Clinical History: Pain Findings: The normal lordotic curve is maintained. No fracture. There is grade 1 anterolisthesis of L 5 over S1.. There is severe degenerative narrowing at L3-L4. There is moderate to advanced facet arth ropathy, especially from L3 through S1. The sacroiliac joints are normally outlined. Impression: Moderate degenerative spondylosis, as above. Reviewed, dictated and finalized at location M. Impression: Moderate degenerative spondylosis, as above.
== END 2025-02-25 11:12 | disposition home or self-care (01) ==
PROVIDERS: PCP Nurse Practitioner; Visit Provider Nurse Practitioner
DX: M25.552 Pain in left hip (principal); M47.896 Other spondylosis, lumbar region
CPT/HCPCS: 72100; 73502

== ENCOUNTER 2025-02-27 04:55 | Emergency (ER) | payer MEDICARE, OTHER, SELFPAY ==
[2025-02-27 04:58] VITALS: BP 117/81; PULSE 58; RESP 15; TEMP 36.6; O2SAT 96
--- OUTSIDE RECORDS SUMMARY | 2025-02-27 04:58 | XMS_ITS | Encounter Summary ---
Author Organization [facility] Address [address] [place] [address] Care Team Providers Care Warehouse Handler Name Role Phone Marina Velez MD Primary Care Provider + [phone] Nydia [facility] Primary Care Provi jones Encounter Details Date Type Department Care Team (Late st Contact Info) Description 10/15/2019 Telephone [facility] [address] [place], [place] [id number] Angie Cai DO [address] [place] [address] Social History Tobacco Use Types Packs/Day Years Used Date Smoking Tobacco: Never Smokeless Tobacco: Never Alcohol Use Standard Drinks/Week Comments Yes 0 (1 standard drink = 0.6 oz pur e alcohol) Sex and Gender Information Value Date Recorded Sex Assigned at Not on file Gender Identity Not on file Sexual Orientation Not on file documented as of this encounter Miscellaneous Notes * Telephone Encounter - Angie Cai DO - 10/15/2019 9:36 AM CST 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 Patient was contacted multiple times and did not return phone calls to discuss diagnosis and treatment plan. Letter will be mailed to patient. Angie Cai DO [facility] Dermatology Resident, PGY-2 ICAL CARE REGISTERED NURSE documented in this encounter Plan of Treatment Upcoming Encounters Date Type Department Care Team (Late st Contact Info) Description 04/04/2025 8:00 AM CDT Office Visit [facility] [address] [place] [address] Quiana Minro MD [address] [place] [phone] documented as of this encounter Visit Diagnoses Not on filedocumented in this encounter Care Teams Warehouse Handler Relationship Specialty Start Date End Date Marina Velez MD [address] [facility] [address] [place] [phone] PCP - General 05/07/19 09/05/22 Nydia Barros APRN-ANALYTICS ARCHITECT [address] [place] [address] PCP - General 09/06/22 documented as of this encounter
--- OUTSIDE RECORDS SUMMARY | 2025-02-27 04:59 | XMS_ITS | Clinical Summary ---
Author Organization [facility] Address [address] [place] [address] Care Team Providers Care Senior Paralegal Name Role Phone [facility] Primary Care Provi jones Source Comments [facility],non-owned Affiliates and Associated Physician Practices is amultiple site organization consisting of ambulatory clinics and hospital sitesin [place], [place], [place] and [place]. This disclosure is being madepursuant to the Care Everywhere program and may not contain all information available regarding this patient. Last updated 18.[facility] C-Note Allergies Active Allergy Reactions Criticality Noted Date Comments Atropine Other Low 07/18/2014 Fever; reaction as child Medications * Be aware that medications may not be up to date on this document. Alwaysverify current medications with the patient. Medication Sig Dispensed Refills Start Date End Date Status Multiple Minerals-Vitamins (CALCIUM & VIT D3 BONE HEALTH PO) Take 1 tablet by mouth once daily Active Plant Sterols and Stanols (CHOLESTOFF PO) Take 1 tablet by mouth Active triamcinolone acetonide (KENALOG) 0.1 % cream Apply 1 drop to affected area 2 times daily 04/19/2022 Active lisinopril-hydroCHLO ROthiazide (Prinzide; Zestoretic) 20-12.5 MG tablet Take 1 tablet by mouth once daily 09/05/2022 Active tacrolimus (Protopic) 0.1 % ointmentIndications: Rash and other nonspecific skin eruption Apply to face two times daily as need for rash. 30 days supply. 60 g 3 09/06/2022 Active desoximetasone (Topicort) 0.25 % ointment Apply to extremities twice daily as needed. 30 days supply. 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 07/19/20 14 Basal cell carcinoma of eye 07/15/2014 Basal cell carcinoma of left side of nose 2013 Melanocytic nevus 06/16/2014 Unequal leg length (acquired) 10/05/2012 Family History Medical History Relation Name Comments None Known Brother None Known Father None Known Maternal Aunt None Known Maternal Grandfather None Known Maternal Grandmother None Known Maternal Uncle Cancer - Other Mother None Known Other None Known Paternal Aunt None Known Paternal Grandfather None Known Paternal Grandmother None Known Paternal Uncle None Known Sister Allergy (Severe) Neg Hx Asthma Neg Hx CVA Neg Hx Cancer Neg Hx Cancer - Breast Neg Hx Cancer - Skin, Melanoma Neg Hx Cancer - Skin, Non Melanoma Neg Hx Eczema Neg Hx Hemophilia Neg Hx Psoriasis Neg Hx Rashes/Skin Problems Neg Hx Relation Name Status Comments Brother Father Maternal Aunt Maternal Grandfather Maternal Grandmother Maternal Uncle Mother Other Paternal Aunt Paternal Grandfather Paternal Grandmother Paternal Uncle Sister Social History Tobacco Use Types Packs/Day Years Used Date Smoking Tobacco: Never Smokeless Tobacco: Never Alcohol Use Standard Drinks/Week Comments Yes 0 (1 standard drink = 0.6 oz pur e alcohol) Sex and Gender Information Value Date Recorded Sex Assigned at Not on file Gender Identity Not on file Sexual Orientation Not on file Last Filed Vital Signs Vital Sign Reading Time Taken Comments Blood Pressure 130/94 01/27/2020 11:14 AM ROOM SERVICE ATTENDANT Pulse 78 01/27/2020 11:14 AM ROOM SERVICE ATTENDANT Temperature - - Respiratory Rate - - Oxygen Saturation 98% 01/27/2020 11:14 AM ROOM SERVICE ATTENDANT Inhaled Oxygen Concentration - - Weight 68 kg (150 lb) 01/27/2020 9:30 AM ROOM SERVICE ATTENDANT Height 157.5 cm (5' 2 ) 01/27/2020 9:30 AM ROOM SERVICE ATTENDANT Body Mass Index 27.44 01/27/2020 9:30 AM ROOM SERVICE ATTENDANT Plan of Treatment Upcoming Encounters Date Type Department Care Team (Late st Contact Info) Description 04/04/2025 8:00 AM CDT Office Visit [facility] Rheumatology [address] [place] [address] Quiana Minor MD [address] [facility] [place] [phone] Health Maintenance Due Date Last Done Comments BONE DENSITY TESTING 1959 COLOGUARD (AGES 45-75) - COLON CA SCREENING 1959 COLON MONITORING 1959 COLONOSCOPY - COLON CA SCREENING 1959 CT COLONOGRAPHY - COLON CA SCREENING 1959 Colorectal Cancer Screening 1959 FIT - COLON CA SCREENING 1959 FLEX SIG - COLON CA SCREENING 1959 LIPID TESTING 1959 MEDICARE AWV 12 MONTHS 1959 PAP SMEAR 1959 HIV SCREENING 1974 DTAP/TDAP/TD VACCINES (1 - Tdap) 1978 PNEUMOCOCCAL VACCINE 50+ (1 of 1 - PCV) 2009 ZOSTER VACCINE (1 of 2) 2009 MAMMOGRAM 02/08/2023 02/08/2021, 02/08/2021 COVID-19 VACCINE ( season) 2024 11/22/2022, 06/16/2022, 11/15/2021 INFLUENZA VACCINE (#1) 2024 3, 11/15/2021, 09/13/2020, Additional history exists DEPRESSION SCREENING 11/24/2024 Respiratory Syncytial Virus (RSV) Vaccine Pt: or over 60 yrs (1 - 1-dose 75+ series) 2034 HEPATITIS C SCREENING Completed 09/06/2022 HEPATITIS B VACCINE Aged Out No longe r eligible based on patient's age to complete this topic HIB VACCINE Aged Out No longer eligi ble based on patient's age to complete this topic HPV VACCINE Aged Out No longer eligi ble based on patient's age to complete this topic MENINGOCOCCAL (Group B) VACCINE SHARED DECISION-MAKING Aged Out No longer eligible based on patient's age to complete this topic MENINGOCOCCAL GROUPS A/C/Y/W VACCINE Aged Out No longer eligible based on patient's age to complete this topic Care Teams Senior Paralegal Relationship Specialty Start Date End Date Nydia Barros, ABORIGINAL EDUCATION TEACHER-SOIL CHECKER [address] [place] [address] PCP - General 09/06/22
--- OUTSIDE RECORDS SUMMARY | 2025-02-27 04:59 | XMS_ITS | Clinical Summary ---
Author Organization [facility] [employer] Address [address] [place] [address] Care Team Providers Care Functional Consultant Name Role Phone Nydia Barros MD Primary Care Provider [phone]- [phone] Allergies Active Allergy Reactions Criticality Noted Date Comments Constantin Inhibitors Other (See comments) Low 09/06/2022 Causes Eczema to flair up. Stop per dermatology Amoxicillin-Pot Clavulanate Diarrhea High 10/25/2024 Recent episode of C-Diff after Augmentin use given in ER Atropine Other (See comments) Low 07/18/2014 Fever; reaction as child Medications Dupixent Pen pen injector 4 Active donepeziL (ARICEPT) 10 mg tablet Take 1 tablet (10 mg total) by mouth daily 4 10/20/20 25 Active ondansetron (ZOFRAN) 4 mg tablet Take 1 tablet (4 mg total) by mouth every 8 (eight) hours as needed 5 Active clobetasoL (TEMOVATE) 0.05 % ointment Apply topically 2 (two) times a day 4 Active desoximetasone (TOPICORT) 0.25 % ointment Apply to extremities twice daily as needed. 30 days supply. 2 Active hydrocortisone 2.5 % ointment Apply topically 2 (two) times a day 4 Active lidocaine (LIDODERM) 5 % 4 Active Clenpiq 10 mg-3.5 gram- 12 gram/175 mL solution TAKE 175ML BY MOUTH TWICE DAILY Active tacrolimus (PROTOPIC) 0.1 % ointment Apply to face two times daily as need for rash. 30 days supply. 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 We last saw her about 6 months ago, she wonders if anything else can be done for eye. Unfortunately this time, I think the prognosis is still quite guarded. If she is having persistent pain I think she could benefit from enucleation. She feels the eye is rather comfortable, but would like a refill on her topical Pred Forte just in case. I have refilled the Pred Forte for twice a day in the right eye. I have asked that she see our Optometry service in roughly 6 months' time. Should things worsen I would be happy to re-evaluate her in the future. Assessment & Plan (04/05/2024 9:05 AM CDT): Over the last year or so, she is required numerous surgeries the most recent was March 03, and they bring with them some paperwork stating that she had pars plana vitrectomy removal of intra-ocular lens laser air-fluid exchange and silicone oil injection as well as peripheral iridotomy. She comes today seeking a 2nd opinion as she was recently told that very little else could be done to help her, and enucleation was recommended. She has not having pain unless she touches the eye. There are few exposed limbal suture superotemporally in the right eye, perhaps these could be removed if necessary for pain/comfort reasons. They state she has had roughly 8 surgeries, I am unable to assess the status of the retina due to the presence of silicone oil as well as the corneal haziness. Additional surgery to repair the retinal detachment would likely require corneal transplant associated with silicone oil removal, additional laser and possible silicone oil reinjection. In addition there would likely be membrane removal from the iris as well as the retina. But considering she has had 8 other surgeries, it is highly unlikely we will be successful with a 9th. I have reviewed the guarded prognosis for vision for this eye, I have encouraged her to follow up with Dr. Griffith, would move onto enucleation if she has persistent pain that is not controllable. Hypertension 09/02/2022 Basal cell carcinoma of eye 07/15/2014 Encounters Date Type Department Care Team Description 01/27/2025 Telephone [place] [id number] [place] [address] [place] [address] Favio Mcmanus 01/21/2025 Telephone [place] [address] [place] [address] [place] [address] Favio Mcmanus 01/17/2025 2:40 PM PIPE MANUFACTURE SUPERVISOR Office Visit [facility] Op[facility] [address] [phone] Judy Davalos MD Phthisis bulbi of right eye (Primary Dx) 12/17/[address] [place] [address] Troy Watson 12/10/[address] [facility] [address] [place] [address] Troy Watson 11/30/2024 4:45 PM PIPE MANUFACTURE SUPERVISOR Lab [facility] [address] [place] [phone] Mild cognitive impairment 11/30/2024 3:00 PM PIPE MANUFACTURE SUPERVISOR Office Visit [address] [place] [address] [place] [address] Fabiola Sims MD PhD Memory loss or impairment (Primary Dx); Autoimmune disease; Mild cognitive impairment from Last 3 Months Social History Tobacco Use Types Packs/Day Years Used Date Smoking Tobacco: Never Tobacco Cessation:Counseling Given: Not Answered Comments Unknown Sex and Gender Information Value Date Recorded Sex Assigned at Not on file Legal Sex Female 11:19 AM CDT Gender Identity Not on file Sexual Orientation Not on file Obstetrics History Last Filed Vital Signs Vital Sign Reading Time Taken Comments Blood Pressure 122/77 11/30/2024 2:27 PM PIPE MANUFACTURE SUPERVISOR Pulse 93 11/30/2024 2:27 PM PIPE MANUFACTURE SUPERVISOR Temperature - - Respiratory Rate - - Oxygen Saturation - - Inhaled Oxygen Concentration - - Weight 55.3 kg (122 lb) 11/30/2024 2:27 PM PIPE MANUFACTURE SUPERVISOR Height 160 cm (5' 3 ) 11/30/2024 2:27 PM PIPE MANUFACTURE SUPERVISOR Body Mass Index 21.61 11/30/2024 2:27 PM PIPE MANUFACTURE SUPERVISOR Plan of Treatment Health Maintenance Due Date Last Done Comments Colon Cancer Screening-Colonoscopy 1959 Depression Screening 1959 Fall Risk Assessment 1959 Hepatitis C Screening 1959 Osteoporosis Screening-Bone Density Scan 1959 Hepatitis B Screening 1977 Zoster Vaccine (2 of 3) 05/22/2016 03/27/2016 Pneumococcal vaccine 65+ (2 of 2 - PCV) 03/27/2017 03/27/2016 Breast Cancer Screening-Mammogram 02/08/2022 02/08/2021, 02/08/2021, 12/27/2019, Additional history exists Well Visit 65+ 02/11/2024 Covid-19 Vaccine (5 - 2023-2 5 season) 2024 11/22/2022, 06/16/2022, 11/15/2021, Additional history exists DTaP/Tdap/Td Vaccine (2 - Td or Tdap) 03/27/2026 03/27/2016 Influenza Vaccine Completed 10/19/2024, , 11/15/2021, Additional history exists Procedures Procedure Name Priority Date/Time Associated Diagnosis Comments THYROID FUNCTION CASCADE Routine 11/30/2024 4:27 PM PIPE MANUFACTURE SUPERVISOR Mild cognitive impairment VITAMIN B12 Routine 11/30/2024 4:27 PM PIPE MANUFACTURE SUPERVISOR Mild cognitive impairment from Last 3 Months Results * Thyroid Function [place] (11/30/2024 4:27 PM PIPE MANUFACTURE SUPERVISOR) TSH 1.44 0.30 - 4.20 mcIUnit/mL Blood 11/30/2024 4:27 PM PIPE MANUFACTURE SUPERVISOR 11/30/2024 5:12 PM PIPE MANUFACTURE SUPERVISOR Fabiola Sims MD PhD LAB BLOOD ORDERABLES F inal Result [facility] [place] [address] * Vitamin B12 (11/30/2024 4:27 PM PIPE MANUFACTURE SUPERVISOR) Vitamin B12 687 230 - 1,250 pg/mL Blood 11/30/2024 4:27 PM PIPE MANUFACTURE SUPERVISOR 11/30/2024 5:12 PM PIPE MANUFACTURE SUPERVISOR Fabiola Sims MD PhD LAB BLOOD ORDERABLES F inal Result [facility] Department [place] [address] from Last 3 Months Insurance MEDICARE [facility] MEDICARE Care Teams Functional Consultant Relationship Specialty Start Date End Date Nydia Barros MD PCP - General Nurse Practitioner 07/28/24
--- OUTSIDE RECORDS SUMMARY | 2025-02-27 04:59 | XMS_ITS | Referral Summary ---
Author Organization [facility] Address [address] [place] [address] Care Team Providers Care Primer Press Operator Name Role Phone Nydia Barros MD Primary Care Provider [phone]- [phone] Encounters Date Type Department Care Team Description 01/27/2025 Telephone [facility] [place] [id number] [facility] [address]th [place] [address] [place] [address] Favio Mcmanus 01/21/2025 Telephone [facility] [place] [id number] [facility] 6th [place] [address] [place] [address] Favio Mcmanus 01/17/2025 2:40 PM ASSISTANT CHIEF TRAIN DISPATCHER Office Visit [facility] [address] [facility] [address] [place] [address] Judy Davalos MD Phthisis bulbi of right eye (Primary Dx) 12/17/2024 Telephone [facility] [place] [id number] [facility] First Floor [address] [place] [address] Troy Watson 12/10/2024 Documentation [facility] [place] [address] [facility] First Floor [address] [place] [address] Troy Watson 11/30/2024 4:45 PM ASSISTANT CHIEF TRAIN DISPATCHER Lab [facility]) [facility] [place] [address] Mild cognitive impairment 11/30/2024 3:00 PM ASSISTANT CHIEF TRAIN DISPATCHER Office Visit [facility] [address] [facility] 6th [place] [address] [place] [address] Fabiola Sims MD PhD Memory loss or impairment (Primary Dx); Autoimmune disease; Mild cognitive impairment from Last 3 Months Allergies Active Allergy Reactions Criticality Noted Date [...] 04/05/2024 Assessment & Plan (01/17/2025 3:22 PM ASSISTANT CHIEF TRAIN DISPATCHER): Here today to transfer care from her [...] unlikely we will be successful with a . I have reviewed the guarded prognosis for vision for this eye, I have encouraged her to follow up with Dr. Griffith, would move onto enucleation if she has persistent pain that is not controllable. Hypertension 09/02/2022 Basal cell carcinoma of eye 07/15/2014 Social History Tobacco Use Types Packs/Day Years [...] Comments Blood Pressure 122/77 11/30/2024 2:27 PM ASSISTANT CHIEF TRAIN DISPATCHER Pulse 93 11/30/2024 2:27 PM ASSISTANT CHIEF TRAIN DISPATCHER Temperature - - Respiratory Rate - - Oxygen Saturation - - Inhaled Oxygen Concentration - - Weight 55.3 kg (122 lb) 11/30/2024 2:27 PM ASSISTANT CHIEF TRAIN DISPATCHER Height 160 cm (5' 3 ) 11/30/2024 2:27 PM ASSISTANT CHIEF TRAIN DISPATCHER Body Mass Index 21.61 11/30/2024 2:27 PM ASSISTANT CHIEF TRAIN DISPATCHER Plan of Treatment Not on file Procedures Procedure Name Priority Date/Time Associated Diagnosis Comments THYROID FUNCTION CASCADE Routine 11/30/2024 4:27 PM ASSISTANT CHIEF TRAIN DISPATCHER Mild cognitive impairment VITAMIN B12 Routine 11/30/2024 4:27 PM ASSISTANT CHIEF TRAIN DISPATCHER Mild cognitive impairment from Last 3 Months Results * Thyroid Function [place] (11/30/2024 4:27 PM ASSISTANT CHIEF TRAIN DISPATCHER) TSH 1.44 0.30 - 4.20 mcIUnit/mL Blood 11/30/2024 4:27 PM ASSISTANT CHIEF TRAIN DISPATCHER 11/30/2024 5:12 PM ASSISTANT CHIEF TRAIN DISPATCHER us Fabiola Sims MD PhD LAB BLOOD ORDERABLES F inal Result [facility] Department [place] [address] * Vitamin B12 (11/30/2024 4:27 PM ASSISTANT CHIEF TRAIN DISPATCHER) Vitamin B12 687 230 - 1,250 pg/mL Blood 11/30/2024 4:27 PM ASSISTANT CHIEF TRAIN DISPATCHER 11/30/2024 5:12 PM ASSISTANT CHIEF TRAIN DISPATCHER us Fabiola Sims MD PhD LAB BLOOD ORDERABLES F inal Result [facility] Department [place] [address] from Last 3 Months Insurance MEDICARE [facility] Address: [address] [address] [place] [address] [facility] Address: [address] [place] [address] MEDICARE Care Teams Primer Press Operator Relationship Specialty Start Date End Date Nydia Barros MD PCP - General Nurse Practitioner 07/28/24
--- NOTE | 2025-02-27 05:36 | PC.NURSE ---
Patient's to desk stating they are going to leave and follow up with PCP.
--- OUTSIDE RECORDS SUMMARY | 2025-02-27 05:53 | XMS_ITS | Encounter Summary ---
Author Organization [facility] Address [address] [place] [address] Care Team Providers Care Senior Manager Name Role Phone Nydia Barros NP Primary Care Provider [phone] [phone] Encounter Details Date Type Department Care Team (Late st Contact Info) Description 10/26/2024 Therapy Plan [facility] Physical Therapy [address] [place] [address] Bella Keenan, [place] [address] Social History Tobacco Use Types Packs/Day Years Used Date Smoking Tobacco: Never Passive Smoke Exposure: Never Smokeless Tobacco: Never Comments:Have not used tobac co Alcohol Use Standard Drinks/Week Comments Yes 3.3 (1 standard drink = 0.6 oz p ure alcohol) daily wine consumption PHQ-2 Answer Date Recorded Patient Health Questionnaire-2 Score 1 07/09/2024 Comments No Sex and Gender Information Value Date Recorded Sex Assigned at Female 12/16/2024 3:00 PM DISEASE EDUCATION SPECIALIST Legal Sex Female 7:44 PM CDT Gender Identity Female 12/16/2024 3:00 PM DISEASE EDUCATION SPECIALIST Sexual Orientation Not on file documented as of this encounter Plan of Treatment Not on file documented as of this encounter Visit Diagnoses Not on filedocumented in this encounter Additional Health Concerns Assessment Noted Time PHQ-9 Depression Total Score: 4 07/08/20 24 1:35 PM CDT documented as of this encounter Care Teams Senior Manager Relationship Specialty Start Date End Date Nydia Barros NP [address] [place] [address] PCP - General NURSE PRACTITIONER 05/10/21 documented as of this encounter
--- OUTSIDE RECORDS SUMMARY | 2025-02-27 05:53 | XMS_ITS | Encounter Summary ---
Author Organization [facility] Address [facility] [place] [address] Care Team Providers Care Brake Lining Maker Name Role Phone Nydia Barros NP Primary Care Provider +1 -[phone] Encounter Details Date Type Department Care Team (Late st Contact Info) Description 07/22/2024 [place] Message Enc [facility] - [address], [address] [place] [phone] [place] Provider Results Social History Tobacco Use Types Packs/Day Years [...] Sex Assigned at Female 12/16/2024 3:00 PM POTATO SORTER Legal Sex Female 7:44 PM CDT Gender Identity Female 12/16/2024 3:00 PM POTATO SORTER Sexual Orientation Not on file documented as of this encounter Plan of Treatment Not on file documented as of this encounter Visit Diagnoses Not on filedocumented in this encounter Additional Health Concerns Assessment Noted Time PHQ-9 Depression Total Score: 4 07/08/20 24 1:35 PM CDT documented as of this encounter Care Teams Brake Lining Maker Relationship Specialty Start Date End Date Nydia Barros NP [address] [place] [address] PCP - General NURSE PRACTITIONER 05/10/21 documented as of this encounter
--- OUTSIDE RECORDS SUMMARY | 2025-02-27 05:53 | XMS_ITS | Clinical Summary ---
Author Organization [facility] Address [address] [place] [address] Care Team Providers Care Tree Loader Meat Name Role Phone Nydia Barros NP Primary Care Provider +1 -[phone] Allergies Active Allergy Reactions Criticality Noted Date Comments Constantin Inhibitors Other (see comment) Low 09/06/2022 Causes Eczema to flair up. Stop per dermatology Atropine Other (see comment) Low 07/18/2014 Fever; reaction as child Amoxicillin-Pot Clavulanate Diarrhea High 10/25/2024 Recent episode of C-Diff after Augmentin use given in ER Medications prednisoLONE acetate (PRED FORTE) 1 % ophthalmic suspension 11/18/20 23 Active clobetasol (TEMOVATE) 0.05 % ointment Apply topically 2 (two) times daily. 05/12/20 24 Active hydrocortisone (HYTONE) 2.5 % ointment Apply topically 2 (two) times daily. 05/12/20 24 Active lidocaine (LIDODERM) 5 % 09/15/20 24 Active ondansetron (ZOFRAN) 4 MG tabletIndicatio ns:Nausea Take 1 tablet (4 mg total) by mouth every 8 (eight) hours as needed. 30 tablet 11/25/19 25 Active Additional Information Patient not taking.Reported on 02/25/2025 Sod Picosulfate-Mag Ox-Cit Acd (CLENPIQ) 10-3.5-12 MG-GM -GM/175ML SolutionIndicat ions:Change in stool,Poor appetite Take 175 mLs by mouth 2 (two) times a day. Per GI instructions 350 mL 12/16/19 Active Additional Information Patient not taking.Reported on 02/25/2025 pantoprazole EC (PROTONIX) 40 MG tabletIndicatio ns:Gastroesopha geal reflux disease, unspecified whether esophagitis present Take 1 tablet (40 mg total) by mouth daily. 90 tablet 3 02/23/20 25 026 Active donepezil (ARICEPT) 10 MG Tab Take 1 tablet (10 mg total) by mouth nightly at bedtime. Active DUPIXENT 300 MG/2ML injection (PEN) 11/28/19 025 Discontin ued(Error ) donepezil (ARICEPT) 10 MG TabIndications: Autoimmune disease (HHS/HCC) Take 1 tablet (10 mg total) by mouth nightly at bedtime. 90 tablet 3 10/20/20 24 025 Discontin ued(Error ) Misc. 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 Due to possible fall); Knee Pain (Right knee pain) 02/25/2025 Travel 02/25/2025 Telephone [facility] Mult[facility]pecialty Care - [address] [place] [address] Michoacano Mims MD Results 02/22/2025 10:45 AM CDT - 02/22/2025 11:15 AM CDT Surgery [facility] Endo/[place] [address] Michoacano Mims MD COLONOSCOPY WITH REMOVAL OF SIGMOID COLON POLYP VIA HOT SNARE AND HOT BIOPSY FORCEPS 02/22/2025 10:17 AM CDT Anesthesia Event [facility] [place] [address] Joe Kemp MD Kiveric, Esad, DO 02/22/2025 7:49 AM CDT - 02/22/2025 11:59 AM CDT Hospital Encounter [facility] [place] [address] Michoacano Mims MD Discharge Disposition: Home or Self Care (Routine Discharge) 02/22/2025 [facility] [address] [place] [address] Michoacano Mims MD 02/22/2025 Travel 02/01/2025 [facility] [address] [place] [address] Michoacano Mims MD Prior Authorization (Colonoscopy-[id number]/EG [id number]) 01/20/2025 [facility] [address] [place] [address] Michoacano Mims MD Question 01/20/2025 [facility] [address] [place] [address] Michoacano Mims MD Error 12/29/2024 Telephone [facility] [address] [place] [address] Nydia Barros NP Referral 12/27/2024 Scan [facility] INFO SRVCS Scanned, [facility] 12/17/2024 [facility] [address] [place] [address] Michoacano Mims MD 12/16/2024 3:00 PM HYDRAULICS TEACHER Office Visit [address] [place] [address] Nydia Barros NP Schaefer, Jennifer, NP New Patient (Referral h/o diverticulitis ) 12/16/2024 Travel 11/30/2024 Scan [facility] HEALTH INFO SRVCS Scanned, [facility] 11/30/2024 Telephone [facility] [address] [place] [address] Nydia Barros NP Specialty Pharmacy (Wheelchair orders) from Last 3 Months Immunizations Name Administration Dates Next Due Fluzone 6 Months+ Quad (0.5 mL Prefilled Syringe) 09/04/2023,09/13/2020 Fluzone High Dose (IIV, triv alent, 0.5mL) 10/19/2024 Influenza (Generic) 11/15/2021, 6,09/29/2015,2012,09/30/2012,08/28/2011,11/22/2002 Influenza Adult (Generic) 09/27/2019,07/2019,10/20/2017,2013 MODERNA COVID-19 BIVALENT (1 2+), MRNA, LNP-S, PF 11/22/2022 MODERNA COVID-19 (NURSING PROGRAM CHAIR KYLAH LINNEA), MRNA, LNP-S, PF, 50 MCG/ 0.25 ML DOSE 06/16/2022,11/15/2021 Pneumococcal (Pneumovax 23) 03/27/2016 Tdap (Generic) 03/27/2016 Zoster (Zostavax) 32557 Unt/0.65Ml 03/27/2016 Family History Medical History Relation Comments Diabetes Brother Alcohol Abuse Father Cancer Mother ovarian , i n her 80's Diabetes Mother Diabetes Sister Relation Status Comments Brother Father Mother Sister Social History Tobacco Use Types Packs/Day Years Used Date Smoking Tobacco: Never Passive Smoke Exposure: Never Smokeless Tobacco: Never Tobacco Cessation:Counseling Given: No Comments:Have not used tobacco Alcohol Use Standard Drinks/Week Comments Yes 8.3 (1 standard drink = 0.6 oz p ure alcohol) daily wine consumption PHQ-2 Answer Date Recorded Patient Health Questionnaire-2 Score 0 12/16/2024 Comments No Sex and Gender Information Value Date Recorded Sex Assigned at Female 12/16/2024 3:00 PM HYDRAULICS TEACHER Legal Sex Female 7:44 PM CDT Gender Identity Female 12/16/2024 3:00 PM HYDRAULICS TEACHER Sexual Orientation Not on file Last Filed Vital Signs Vital Sign Reading Time Taken Comments Blood Pressure 118/78 02/25/2025 10:24 AM CDT Pulse 70 02/25/2025 10:24 AM CDT Temperature 36.5 C (97.7 F) 02/25/2025 10:24 AM CDT Respiratory Rate 18 02/25/2025 10:24 AM CDT Oxygen Saturation 100% 02/25/2025 10:24 AM CDT Inhaled Oxygen Concentration - - Weight 54 kg (119 lb) 02/25/2025 10:24 AM CDT Height 160 cm (5' 3 ) 02/25/2025 10:24 AM CDT Body Mass Index 21.08 02/25/2025 10:24 AM CDT Plan of Treatment Health Maintenance Due Date Last Done Comments Zoster Vaccines (2 of 3) 05/22/2016 03/27/2016 Mammogram Screening 02/08/2023 02/08/2021, 12/27/2019, 12/22/2018, Additional history exists Annual Medicare Wellness Visit 02/11/2024 Dexa Scan (General) 02/11/2024 Pneumococcal Vaccine: 65+ Years (2 of 2 - PCV) 02/11/2024 03/27/2016 COVID-19 Vaccine (5 - season) 2024 11/22/2022, 06/16/2022, 11/15/2021, Additional history exists DTaP, Tdap and Td Vaccines (2 - Td or Tdap) 03/27/2026 03/27/2016 RSV Immunization or 60+ Years (1 - 1-dose 75+ series) 2034 Colorectal Cancer Screening Colonoscopy (10 Years) 02/22/2035 02/22/2025, 12/06/2012 Hepatitis C Completed 09/06/2022 PHQ-2 (Physician [place]) Completed 12/16/2024 Meningococcal B Vaccine Aged Out No l onger eligible based on patient's age to complete this topic Meningococcal Vaccine Aged Out No leilani harish eligible based on patient's age to complete this topic RSV Immunizations Under 20 Months Aged Out No longer eligible based on patient's age to complete this topic Procedures Procedure Name Priority Date/Time Associated Diagnosis Comments UPPER GI ENDOSCOPY,BIOPSY 02/22/2025 10:12 AM CDT Colitis Change in stool Nausea Poor appetite COLSC FLX W/RMVL OF TUMOR POLYP LESION SNARE TQ 02/22/2025 10:12 AM CDT Colitis Change in stool Nausea Poor appetite PROCEDURE GENERIC 02/22/2025 8:3 0 AM CDT PATHOLOGY Routine 02/22/2025 12:00 AM CDT HEPATITIS C ANTIBODY W/RFX TO HCV RNA Routine 09/06/2022 11:04 AM CDT Need for hepatitis C screening test MG SCREENING W ED SHERRILL DIGI Routine 02/08/2021 1:10 PM CDT Encounter for screening mammogram for malignant neoplasm of breast COLONOSCOPY Routine 12/06/2012 12:00 AM HYDRAULICS TEACHER from Last 3 Months or Most Recently Relevant to Health Maintenance Results * PROCEDURE GENERIC (02/22/2025 8:30 AM CDT) us Michoacano Mims MD [facility] Final Result * Pathology (02/22/2025 12:00 AM CDT) PATHOLOGY [facility] Department of Laboratory Medicine [address] [place] [address] , extension [phone] Pathology Report Surgical Pathology Report Name: BRENNA MENDOSA Specimen #: [id number] Age: 302/10/1960 (Age: 65) Location: [facility] Sex: F Procedure Date: 02/22/2025 Hospital #: [id number] Date Received: 02/22/2025 Date Reported: 02/24/2025 Provider: MICHOACANO MIMS MD Source: A: GE junction, biopsies B: Colon, sigmoid, polyp Clinical History: Recent colitis with ongoing loose stools, chronic nausea, and poor appetite Postoperative Diagnosis: Rule out IBD FINAL DIAGNOSIS: A. Esophagus, GE junction, biopsies: -Mildly hyperplastic squamous esophageal mucosa without diagnostic abnormalities -No glandular mucosa present in specimen submitted B. Colon, sigmoid, polypectomy: -Polypoid inflamed granulation tissue, consistent with inflammatory polyp, see comment Diagnosis Comment: Immunohistochemistry is performed for CAM5.2 and CMV which is negative in the granulation tissue and tissue, supporting the diagnosis of an inflammatory polyp. Gross Description: A. Received in formalin, labeled with a patient label and as GE junction stricture biopsies , are 2 portions of pink-kimble soft tissue that are both 0.2 cm in greatest dimension. The specimen is entirely submitted in cassette A1. B. Received in formalin, labeled with a patient label and as sigmoid colon polyp , are 5 portions of pink-kimble soft tissue ranging from 0.1 to 0.5 cm in greatest dimension 1 polyp is inked black and bisected. The specimen is entirely submitted in cassette B1. Gross examination (when applicable) was performed at [facility], [address] [place] [address]. This case was interpreted and signed out at [facility] [place], [address] [place] [address]. All immunohistochemical and histochemical tests were developed by and performed at [facility], [address] [place] [address]. All tests reported here have not been cleared or approved by the U.S. Food and Drug Administration (FDA). This laboratory is regulated under CLIA as qualified to perform high-complexity testing. These tests are used for clinical purposes. They should not be regarded as investigational or for research. Positive and negative controls show appropriate reactivity. Electronically Signed Out HARDEEP MARTINEZ MD [facility] TISSUE ESOPHAGEAL STRUCTURE / Unknown 02/22/2025 10:29 AM CDT Tissue specimen (specimen) COLON STRUCTURE / Unknown 02/22/2025 10:45 AM CDT Michoacano Mims MD PATHOLOGY/CYTOLOGY ORDERABLES Fi nal Result Performing Organization Address [facility] Co de Phone Number [facility] [address] [place] [address], [id number] * HEPATITIS C ANTIBODY W/RFX TO HCV RNA ([facility] ONLY) (09/06/2022 11:04 AM CDT) HEPATITIS C AB NON-REACTI VE NON-REACT OBIE [facility] SIGNAL TO CUTOFF 0.02 <[address] [facility] Comment: HCV antibody was non-reactive. There is no laboratory evidence of HCV infection. In most cases, no further action is required. However, if recent HCV exposure is suspected, a test for HCV RNA (test code 69106) is suggested. For additional information please refer to http://[email or web address]/faq/KDO75g1 (This link is being provided for informational/ educational purposes only.) 09/06/2022 11:0 4 AM CDT 09/06/2022 11:05 AM CDT Narrative [facility] - 09/11/2022 9:22 AM CDT FASTING:YES FASTING: YES Nydia Barros NP LABORATORY Final Res ult Performing Organization Address City/[facility]/ZIP Co de Phone Number [facility] [address] [place] [address] * MG SCREENING W ED SHERRILL DIGI (02/08/2021 1:10 PM CDT) Anatomical Region Laterality Modality Breast Bilateral Mammography 02/08/2021 2:35 PM CDT Impressions 02/08/2021 2:37 PM CDT IMPRESSION: No suspicious mammographic findings. Recommendation: 1. Follow-up Mamm in 1 year, BILATERAL Assessment: ACR BI-RADS 2 - BENIGN FINDING(S) Referred By: ALINE GREGG Interpreted By: Rayo Kyle MD, 02/08/2021 2:35 PM Narrative 02/08/2021 2:37 PM CDT Examination: Screening bilateral mammogram with 3-D tomosynthesis Clinical history: No family history of breast cancer. No present breast related complaints. Comparison: December 27, 2019, 12/22/2018, 12/18/2017, 10/10/2015 Technique: Digital screening mammography of both breasts was performed. 3-D tomosynthesis technique was also performed. This study was read with the assistance of computer-aided detection system. Tissue density: The breast tissue is heterogeneously dense, which may obscure small masses. Findings: No suspicious masses, malignant appearing calcifications, skin thickening or other abnormalities are present. No significant change from the prior exam. Aline Gregg MD MAMMO Final Result * Colonoscopy (12/06/2012 12:00 AM HYDRAULICS TEACHER) 12/06/2012 12/06/2012 Narrative [facility] EP[facility] CONVERSION - 12/06/2012 12:00 AM HYDRAULICS TEACHER Documented hx of procedure Procedure Note Liv Arboleda MD - 09/27/2018 Documented hx of procedure us Liv Hall Md, MD GI PROCEDURE ORDERABLES Final Result [facility] TO EPIC CONVERSION from Last 3 Months or Most Recently Relevant to Health Maintenance Insurance MEDICARE [facility] MEDICARE Advance Directives Documents on File Type Date Recorded Patient Electrician Bus Expl anation Power of Ncqa Specialist 07/30/2024 9:48 AM Power of Ncqa Specialist 07/09/2024 1:57 PM Care Teams Tree Loader Meat Relationship Specialty Start Date End Date Nydia Barros NP [address] [place] [address] PCP - General NURSE PRACTITIONER 05/10/21
--- OUTSIDE RECORDS SUMMARY | 2025-02-27 05:53 | XMS_ITS | Referral Summary ---
Author Organization [facility] Address [address] [place] [address] Care Team Providers Care Hairspring Setter Name Role Phone yNdia Barros MD Primary Care Provider +1- [phone] Encounters Date Type Department Care Team Description 01/27/2025 Telephone [facility] Memory Diagnostic [place] [id number] [facility] Advanced Medicine 6th [place] [address] [place] [address] Favio Mcmanus 01/21/2025 Telephone [facility] Diagnostic [place] [address] [facility] 6th [place] [address] [place] [address] Favio Mcmanus 01/17/2025 2:40 PM MEDICAL ADMINISTRATIVE ASSISTANT Office Visit [facility] Ophthalmology [address] [facility] [address] [place] [address] Judy Davalos MD Phthisis bulbi of right eye (Primary Dx) 12/17/2024 Telephone [facility] Memory Diagnostic [place] [id number] [facility] First Floor [address] [place] [address] Troy Watson 12/10/2024 Documentation [facility] Diagnostic [place] [address] [facility] First Floor [address] [place] [address] Troy Watson 11/30/2024 4:45 PM MEDICAL ADMINISTRATIVE ASSISTANT Lab [facility] ([facility] [place] [address] Mild cognitive impairment 11/30/2024 3:00 PM MEDICAL ADMINISTRATIVE ASSISTANT Office Visit [facility] [address] [facility] 6th [place] [address] [place] [address] Fabiola Sims MD PhD Memory [...] 04/05/2024 Assessment & Plan (01/17/2025 3:22 PM MEDICAL ADMINISTRATIVE ASSISTANT): Here today to transfer care from her [...] Comments Blood Pressure 122/77 11/30/2024 2:27 PM MEDICAL ADMINISTRATIVE ASSISTANT Pulse 93 11/30/2024 2:27 PM MEDICAL ADMINISTRATIVE ASSISTANT Temperature - - Respiratory Rate - - Oxygen Saturation - - Inhaled Oxygen Concentration - - Weight 55.3 kg (122 lb) 11/30/2024 2:27 PM MEDICAL ADMINISTRATIVE ASSISTANT Height 160 cm (5' 3 ) 11/30/2024 2:27 PM MEDICAL ADMINISTRATIVE ASSISTANT Body Mass Index 21.61 11/30/2024 2:27 PM MEDICAL ADMINISTRATIVE ASSISTANT Plan of Treatment Not on file Procedures Procedure Name Priority Date/Time Associated Diagnosis Comments THYROID FUNCTION CASCADE Routine 11/30/2024 4:27 PM MEDICAL ADMINISTRATIVE ASSISTANT Mild cognitive impairment VITAMIN B12 Routine 11/30/2024 4:27 PM MEDICAL ADMINISTRATIVE ASSISTANT Mild cognitive impairment from Last 3 Months Results * Thyroid Function [place] (11/30/2024 4:27 PM MEDICAL ADMINISTRATIVE ASSISTANT) TSH 1.44 0.30 - 4.20 mcIUnit/mL Blood 11/30/2024 4:27 PM MEDICAL ADMINISTRATIVE ASSISTANT 11/30/2024 5:12 PM MEDICAL ADMINISTRATIVE ASSISTANT us Fabiola Sims MD PhD LAB BLOOD ORDERABLES F inal Result [facility] Department [place] [address] * Vitamin B12 (11/30/2024 4:27 PM MEDICAL ADMINISTRATIVE ASSISTANT) Vitamin B12 687 230 - 1,250 pg/mL Blood 11/30/2024 4:27 PM MEDICAL ADMINISTRATIVE ASSISTANT 11/30/2024 5:12 PM MEDICAL ADMINISTRATIVE ASSISTANT us Fabiola Sims MD PhD LAB BLOOD ORDERABLES F inal Result [facility] [place] [address] from Last 3 Months Insurance MEDICARE FOR LIFE FOR LIFE MEDICARE Care Teams Hairspring Setter Relationship Specialty Start Date End Date Nydia Barros MD PCP - General Nurse Practitioner 07/28/24
--- OUTSIDE RECORDS SUMMARY | 2025-02-27 05:53 | XMS_ITS | Clinical Summary ---
Author Organization [facility] Address [address] [place] [address] Care Team Providers Care Door Installer Name Role Phone Nydia Barros MD Primary Care Provider +1- [phone] Allergies Active Allergy Reactions Criticality Noted Date [...] 04/05/2024 Assessment & Plan (01/17/2025 3:22 PM RAILROAD REPAIRER): Here today to transfer care from her [...] Type Department Care Team Description 01/27/2025 Telephone [place] [address] [place] [address] [place] [address] Favio Mcmanus 01/21/2025 Telephone [place] [address] [place] [address] [place] [address] Favio Mcmanus 01/17/2025 2:40 PM RAILROAD REPAIRER Office Visit [facility] Ophthalmology [facility] [address] [address] Judy Davalos MD Phthisis bulbi of right eye (Primary Dx) 12/17/[address] [place] [address] Troy Watson 12/10/2024 Documentation [facility] Diagnostic [address] [place] [address] Troy Watson 11/30/2024 4:45 PM RAILROAD REPAIRER Lab [facility] ([facility]) [address] [place] [address] Mild cognitive impairment 11/30/2024 3:00 PM RAILROAD REPAIRER Office Visit [address] [place] [address] [place] [address] Fabiola Sims MD PhD Memory loss or [...] Comments Blood Pressure 122/77 11/30/2024 2:27 PM RAILROAD REPAIRER Pulse 93 11/30/2024 2:27 PM RAILROAD REPAIRER Temperature - - Respiratory Rate - - Oxygen Saturation - - Inhaled Oxygen Concentration - - Weight 55.3 kg (122 lb) 11/30/2024 2:27 PM RAILROAD REPAIRER Height 160 cm (5' 3 ) 11/30/2024 2:27 PM RAILROAD REPAIRER Body Mass Index 21.61 11/30/2024 2:27 PM RAILROAD REPAIRER Plan of Treatment Health Maintenance Due Date [...] THYROID FUNCTION CASCADE Routine 11/30/2024 4:27 PM RAILROAD REPAIRER Mild cognitive impairment VITAMIN B12 Routine 11/30/2024 4:27 PM RAILROAD REPAIRER Mild cognitive impairment from Last 3 Months Results * Thyroid Function [place] (11/30/2024 4:27 PM RAILROAD REPAIRER) TSH 1.44 0.30 - 4.20 mcIUnit/mL Blood 11/30/2024 4:27 PM RAILROAD REPAIRER 11/30/2024 5:12 PM RAILROAD REPAIRER Fabiola Sims MD PhD LAB BLOOD ORDERABLES F inal Result [facility] [place] [address] * Vitamin B12 (11/30/2024 4:27 PM RAILROAD REPAIRER) Vitamin B12 687 230 - 1,250 pg/mL Blood 11/30/2024 4:27 PM RAILROAD REPAIRER 11/30/2024 5:12 PM RAILROAD REPAIRER Fabiola Sims MD PhD LAB BLOOD ORDERABLES F inal Result [facility] [place] [address] from Last 3 Months Insurance MEDICARE [facility] FOR [employer] FOR LIFE MEDICARE Care Teams Door Installer Relationship Specialty Start Date End Date Nydia Barros MD PCP - General Nurse Practitioner 07/28/24
--- OUTSIDE RECORDS SUMMARY | 2025-02-27 05:53 | XMS_ITS | Clinical Summary ---
Author Organization [facility] Address [address] [facility] [place] [address] Care Team Providers Care Senior Account Manager Name Role Phone Nydia Barros APRNPAUL A. DE[facility] STATE [employer] Primary Care Provi jones Source Comments [facility],non-owned Affiliates and Associated Physician Practices is amultiple site organization consisting of ambulatory clinics and hospital sitesin [place], [place], [place] and [place]. This disclosure is being madepursuant to the Care Everywhere program and may not contain all information available regarding this patient. Last updated 18.[facility] [employer] Allergies Active Allergy Reactions Criticality Noted Date [...] Comments Blood Pressure 130/94 01/27/2020 11:14 AM CORRECTION WORKER Pulse 78 01/27/2020 11:14 AM CORRECTION WORKER Temperature - - Respiratory Rate - - Oxygen Saturation 98% 01/27/2020 11:14 AM CORRECTION WORKER Inhaled Oxygen Concentration - - Weight 68 kg (150 lb) 01/27/2020 9:30 AM CORRECTION WORKER Height 157.5 cm (5' 2 ) 01/27/2020 9:30 AM CORRECTION WORKER Body Mass Index 27.44 01/27/2020 9:30 AM CORRECTION WORKER Plan of Treatment Upcoming Encounters Date Type Department Care Team (Late st Contact Info) Description 04/04/2025 8:00 AM CDT Office Visit [facility] - Rheumatology [address] [place] [address] Quiana Minor MD [address] [facility] [address] Health Maintenance Due Date Last Done Comments [...] to complete this topic Care Teams Senior Account Manager Relationship Specialty Start Date End Date Nydia Barros, ASSISTANT ADMINISTRATOR-HOUSEHOLD ASSISTANT [address] [place] [address] PCP - General 09/06/22
--- OUTSIDE RECORDS SUMMARY | 2025-02-27 05:53 | XMS_ITS | Encounter Summary ---
Author Organization [facility] Address [address] [place] [address] Care Team Providers Care Planer Feeder Name Role Phone Marina Velez MD Primary Care Provider + [phone] N[facility] Provi jones Encounter Details Date Type Department Care Team (Late st Contact Info) Description 10/15/2019 Telephone [facility] [address] [place], [place] [id number] Angie Cai DO [address] [place] [address] Social History Tobacco Use Types [...] be mailed to patient. Angie Cai DO [facility] Dermatology Resident, PGY-2 RAM MANAGEMENT INTERN documented in this encounter Plan of Treatment Upcoming Encounters Date Type Department Care Team (Late st Contact Info) Description 04/04/2025 8:00 AM CDT Office Visit [facility] [address] [place] [address] Quiana Minor MD [address] DIV [place] [phone] documented as of this encounter Visit Diagnoses Not on filedocumented in this encounter Care Teams Planer Feeder Relationship Specialty Start Date End Date Marina Velez MD [address] [facility] [address] [place] [id number] PCP - General 05/07/19 09/05/22 Nydia Barros APRN-PLASTIC DUPLICATOR [address] [place] [address] PCP - General 09/06/22 documented as of this encounter
--- OUTSIDE RECORDS SUMMARY | 2025-02-27 05:54 | XMS_ITS ---
Author Organization [facility] Address [address] [place], [place] [id number] Care Team Providers Care Bargain Table Clerk Name Role Phone DOMINIQUETosha LIBBY Unavailable [phone] Nydia Barros Unavailable Unavailable REASON FOR VISIT The patient is getting strange pain and nerve sensations in both her feet. It tends to be worse when she wears shoes. Due to her limb length inequality she has to wear special shoes with extrinsic lifts., She also has thick painful toenails of both feet that also cause pain with shoes and ambulation Encounters Encounter Location Date Provider Diagnosis [facility] [address] [facility] [address] [place], [place] [id number] 08/05/2024 LIBBY MACIASNIK Lesion of plantar ne rve, left lower limb G57.62 ; Metatarsalgia, right foot M77.41 ; Metatarsalgia, left foot M77.42 ; Lesion of plantar nerve, right lower limb G57.61 ; Tinea unguium B35.1 ; Hallux valgus (acquired), left foot M20.12 ; Atherosclerosis of sun'aq arteries of extremities with intermittent claudication, bilateral legs I70.213 ; Pain in right foot M79.671 and Pain in left foot M79.672 Assessments Encounter Date Diagnosis (ICD Code) Assessment Notes Treatment Notes Treatment Clinical Notes Section Notes 08/05/2024 Lesion of plantar nerve, left lower limb (ICD-10 - G57.62) Neuroma: Discussed various treatments with the patient regarding neuroma. Discussed conservative care consisting of padding, wider shoes, anti-inflammatorie s, and orthotics. Discussed surgical treatment options and answered all questions about the intra-operative and post-operative treatment course. Abdullahi's neuroma, also known as an interdigital neuroma, is a swelling of the interdigital nerve typically causing sharp, burning pain in the intermetatarsal space, most often between the 3rd and 4th distal metatarsals, that may be exacerbated by constricting shoe wear. Numbness in the affected area may also be noted with increasing activity and patients may also complain of a foreign body sensation in their shoe while walking. The disorder is seen more commonly in women in mid-life and although the disorder does not show a preference of which foot, concurrent bilateral affliction is uncommon. Physical exam may reveal a positive Gilda's click, in which a clicking sensation is revealed while palpating the interdigital space and simultaneously laterally squeezing the metatarsals together. Diagnosis is clinical and an ultrasound may be used to rule out other diagnoses. Conservative therapy is first line treatment and is aimed at relieving the pressure around the affected areas and providing pain relief. Surgical therapy is reserved for those who fail conservative therapy. 08/05/2024 Metatarsalgia, right foot (ICD-10 - M77.41) Metatarsalgia: I discussed anti-inflammatory treatment options and various means of immobilization with the patient. I educated the patient on icing and stretching, supportive shoegear, and the use of orthotic devices and bracing. 08/05/2024 Metatarsalgia, left foot (ICD-10 - M77.42) 08/05/2024 Lesion of plantar nerve, right lower limb (ICD-10 - G57.61) Voltaren Gel: Recommend that the patient obtain over the counter topical Voltaren Gel 1%. I educated the patient on its use. Shoe Recommendation: Advised patient on appropriate shoe gear for protection, healing and good foot health. 08/05/2024 Tinea unguium (ICD-10 - B35.1) Nails 1-5 Bilateral were debrided extensively with nail nippers and emery board, reducing length and girth to pink healthy tissue with any subungual debris and necrotic tissue removed 08/05/2024 Hallux valgus (acquired), left foot (ICD-10 - M20.12) Bunion: Discussed various treatments with the patient regarding hallux abducto valgus deformity. Discussed conservative care consisting of padding, wider shoes, anti-inflammatorie s, and orthotics. Discussed surgical treatment options and answered all questions about the intra-operative and post-operative treatment course. 08/05/2024 Atherosclerosis of sun'aq arteries of extremities with intermittent claudication, bilateral legs (ICD-10 - I70.213) 08/05/2024 Pain in right foot (ICD-10 - M79.671) 08/05/2024 Pain in left foot (ICD-10 - M79.672) Plan Of Treatment Treatment Notes Assessment Notes Lesion of plantar nerve, left lower limb Neuroma: Discussed various treatments with the patient regarding neuroma. Discussed conservative care consisting of padding, wider shoes, anti-inflammatories, and orthotics. Discussed surgical treatment options and answered all questions about the intra-operative and post-operative treatment course. Abdullahi's neuroma, also known as an interdigital neuroma, is a swelling of the interdigital nerve typically causing sharp, burning pain in the intermetatarsal space, most often between the 3rd and 4th distal metatarsals, that may be exacerbated by constricting shoe wear. Numbness in the affected area may also be noted with increasing activity and patients may also complain of a foreign body sensation in their shoe while walking. The disorder is seen more commonly in women in mid-life and although the disorder does not show a preference of which foot, concurrent bilateral affliction is uncommon. Physical exam may reveal a positive Gilda's click, in which a clicking sensation is revealed while palpating the interdigital space and simultaneously laterally squeezing the metatarsals together. Diagnosis is clinical and an ultrasound may be used to rule out other diagnoses. Conservative therapy is first line treatment and is aimed at relieving the pressure around the affected areas and providing pain relief. Surgical therapy is reserved for those who fail conservative therapy. Metatarsalgia, right foot Metatarsalgia: I discussed anti-inflammatory treatment options and various means of immobilization with the patient. I educated the patient on icing and stretching, supportive shoegear, and the use of orthotic devices and bracing. Lesion of plantar nerve, rig ht lower limb Voltaren Gel: Recommend that the patient obtain over the counter topical Voltaren Gel 1%. I educated the patient on its use. Shoe Recommendation: Advised patient on appropriate shoe gear for protection, healing and good foot health. Tinea unguium Nails 1-5 Bilateral were debrided extensively with nail nippers and emery board, reducing length and girth to pink healthy tissue with any subungual debris and necrotic tissue removed Hallux valgus (acquired), left foot Buni on: Discussed various treatments with the patient regarding hallux abducto valgus deformity. Discussed conservative care consisting of padding, wider shoes, anti-inflammatories, and orthotics. Discussed surgical treatment options and answered all questions about the intra-operative and post-operative treatment course. Next Appt Details Follow Up: 10 weeks, Reason: At risk foot care. See how voltaren and wider shoes helped neuroma Provider Name:LIBBY RIVERO, 04:00:00 PM, [address], [address], [id number], Progress Notes * Vida CONTEaakash KayiDOB:[birth year] (65 yo F)Acc No.[id number]:08/05/2024 Patient: Brenna FELICIANO Provider: Mike Rivero DPM :1960 A ge:64 Y S ex:Female Date:08/05/2024 [facility] [id number] Subjective: * Chief Complaints: * 1 . The patient is getting strange pain and nerve sensations in both her feet. It tends to be worse when she wears shoes. Due to her limb length inequality she has to wear special shoes with extrinsic lifts.. 2. She also has thick painful toenails of both feet that also cause pain with shoes and ambulation. * HPI: H PI: New Complaint E stablished patient presents with a new complaint., Patient complains of an issue to bilateral feet. Patient states that she is having a lot of pain in her toes and a numbness feeling on the bottom of bilateral feet. , Duration of problem has been about a year. , Patient denies any injury. Patient states that one leg is longer then the other and thought that might be playing a factor in her feet issues. , MA: beg. * ROS: G eneral / Constitutional: Patient denies c hills, fever, weight loss. ? C ardiovascular: Patient denies e harish, shortness of breath, wounds. ? M usculoskeletal: Patient denies w eakness, broken foot bone. ? S kin: Patient complains of f ungal nails, nail changes, eczema, rash, proriasis. N eurologic: Patient complains of b urning/ tingling, numbness. ? * Medical History: * Medications: N one Objective: * Vitals: * Examination: C onstitutional: Constitutional T he patient is awake, alert, well developed, well groomed and well nourished. D ermatologic: Skin findings: S kin is thin, atrophic and lacking pedal hair. Nail pathology: N ails 1-5 bilateral are elongated, thick, discolored, and dystrophic with subungual debris. They are painful to palpation . ? V ascular: Dorsalis pedis pulse: 2 /4, bilateral. Posterior tibial pulse: 2 /4, bilateral. Capillary refill: l ess than 3 seconds. Edema: N o edema, bilateral. N eurologic: Mulders sign: p ositive, bilateral. Gross sensation G ross sensation is intact to light touch.? M usculoskeletal: Muscle Strength M uscle strength is 5/5 in regards to dorsiflexion, plantarflexion, inversion, and eversion in bilateral lower extremities. Hallux Abducto Valgus L aterally deviated hallux with medial prominence of the 1st metatarsal head left foot.. Assessment: * Assessment: 1. L esion of plantar nerve, left lower limb - G57.62 (Primary) 2 . M etatarsalgia, right foot - M77.41 3 . M etatarsalgia, left foot - M77.42 ?4. L esion of plantar nerve, right lower limb - G57.61 5 . T inea unguium - B35.1 6 . H allux valgus (acquired), left foot - M20.12 7 .?Atherosclerosis of sun'aq arteries of extremities with intermittent claudication, bilateral legs - I70.213 8 . P ain in right foot - M79.671 9 . P ain in left foot - M79.672 Plan: * Treatment: 2. M etatarsalgia, right foot Notes: Metatarsalgia: I discussed anti-inflammatory treatment options and various means of immobilization with the patient. I educated the patient on icing and stretching, supportive shoegear, and the use of orthotic devices and bracing. 3. L esion of plantar nerve, right lower limb Notes: Voltaren Gel: Recommend that the patient obtain over the counter topical Voltaren Gel 1%. I educated the patient on its use. Shoe Recommendation: Advised patient on appropriate shoe gear for protection, healing and good foot health. 4. T inea unguium Notes: Nails 1-5 Bilateral were debrided extensively with nail nippers and emery board, reducing length and girth to pink healthy tissue with any subungual debris and necrotic tissue removed ? 5. H allux valgus (acquired), left foot Notes: Bunion: Discussed various treatments with the patient regarding hallux abducto valgus deformity. Discussed conservative care consisting of padding, wider shoes, anti-inflammatories, and orthotics. Discussed surgical treatment options and answered all questions about the intra-operative and post-operative treatment course. * Follow Up: 1 0 weeks (Reason: At risk foot care. See how voltaren and wider shoes helped neuroma) * Billing Information: * Visit Code: 10132 Office Visit, Est Pt., Level 3. * Procedure Codes: * Electronic signature of LIBBY RIVERO DPM on 02/27/2025 at 05:53 AM CDT Sign off status: Pending * Provider: Mike Rivero DPM Date: 0 08/05/2024 Generated for Donald holley/Vijaya/Chong on: 0 02/27/2025 05:53 AM CDT History and Physical Notes * HPI (History of Present Illness) Category Sub-Category Detail Notes Category Not es HPI New Complaint Established mamta ent presents with a new complaint., Patient complains of an issue to bilateral feet. Patient states that she is having a lot of pain in her toes and a numbness feeling on the bottom of bilateral feet. , Duration of problem has been about a year. , Patient denies any injury. Patient states that one leg is longer then the other and thought that might be playing a factor in her feet issues. , MA: beg Examination Category Sub-Category Detail Notes Category Not es Dermatologic Skin findings: Skin is thin, at rophic and lacking pedal hair Nail pathology: Nails 1-5 bilateral are elongated, thick, discolored, and dystrophic with subungual debris. They are painful to palpation Neurologic Mulders sign: positive, bilateral Gross sensation Gross sensation is i ntact to light touch Vascular Dorsalis pedis pulse: 2/4, bilateral Edema: No edema, bilateral Capillary refill: less than 3 seconds Posterior tibial pulse: 2/4, bilateral Musculoskeletal Muscle Strength Muscle strength is 5/5 in regards to dorsiflexion, plantarflexion, inversion, and eversion in bilateral lower extremities Hallux Abducto Valgus Laterally deviated hallux with medial prominence of the 1st metatarsal head left foot. Constitutional Constitutional The patient is a wake, alert, well developed, well groomed and well nourished
== END 2025-02-27 06:37 | disposition left against medical advice (07) ==
PROVIDERS: PCP Nurse Practitioner
DX: M25.552 Pain in left hip (principal)
CPT/HCPCS: 99199

== ENCOUNTER 2025-03-14 09:24 | Outpatient (CLI) | payer MEDICARE, OTHER, SELFPAY ==
--- NOTE | ~2025-03-14 | MR_ITS ---
MRI of the lumbar spine Clinical History: Radiculopathy Technique: Axial T2-weighted images, and sagittal T1-weighted, T2-weighted, and T2 fat-sat images wer e acquired. Findings: No acute fracture or subluxation identified. Vertebral bodies maintain normal height and al ignment. There is intraosseous hemangioma of the L4 vertebral body. No suspicious marrow signal abnor mality seen. At L1-L2, there is mild disc bulge laterally to the left side with mild to moderate facet arthropathy . No spinal canal stenosis or definite neural foraminal narrowing. At L2-L3, there is minimal disc bulge and mild facet arthropathy. No central canal stenosis or neural foraminal narrowing. L3-L4, there is moderate degenerative disc narrowing. There is diffuse disc bulge with moderate facet arthropathy. No madina central canal stenosis. There is mild left neural foraminal narrowing. Right n eural foramen preserved. At L4-L5, there is diffuse disc bulge with tiny annular fissure. There is advanced facet arthropathy. No central canal stenosis. There is minimal right neural foraminal narrowing. Left neural foramen pr eserved. At L5-S1, there is mild disc bulge with moderate to advanced facet arthropathy. No central canal sten osis or neural foraminal narrowing. Paravertebral soft tissues are unremarkable. Impression: Moderate degenerative spondylosis overall, as above. Reviewed, dictated and finalized at [facility]. Impression: Moderate degenerative spondylosis overall, as above.
== END 2025-03-14 09:25 | disposition home or self-care (01) ==
LOC: MICIMG 09:25
PROVIDERS: PCP Nurse Practitioner; Visit Provider Nurse Practitioner
DX: M47.26 Other spondylosis with radiculopathy, lumbar region (principal)
CPT/HCPCS: 72148

== ENCOUNTER 2025-04-28 10:48 | Outpatient (CLI) | payer MEDICARE, OTHER, SELFPAY ==
--- NOTE | ~2025-04-28 | XR_ITS ---
Left Hand Technique: PA and lateral views were obtained. Clinical History: Polyarthralgia Findings: No acute fracture or dislocation is seen. Osseous alignment is anatomic. There is severe de generative change of the triscaphe joint.. Soft tissues are unremarkable. Impression: Severe degenerative change of the triscaphe joint. Reviewed, dictated and finalized at location . Impression: Severe degenerative change of the triscaphe joint.
--- NOTE | ~2025-04-28 | XR_ITS ---
Right Hand Technique: PA and lateral views were obtained. Clinical History: Polyarthralgia Findings: No acute fracture or dislocation is seen. Osseous alignment is anatomic. There is severe de generative change of the triscaphe joint. There is moderate degenerative change of the first CMC join t. There are mild degenerative changes scattered interphalangeal joints of the fingers.. Soft tissues are unremarkable. Impression: Polyarticular osteoarthritis, as detailed above. Reviewed, dictated and finalized at location M. Impression: Polyarticular osteoarthritis, as detailed above.
== END 2025-04-28 10:49 | disposition home or self-care (01) ==
PROVIDERS: PCP Nurse Practitioner; Visit Provider Internal Medicine Rheumatology
DX: M19.041 Primary osteoarthritis, right hand (principal); M19.042 Primary osteoarthritis, left hand; M25.50 Pain in unspecified joint; R53.83 Other fatigue; M79.10 Myalgia, unspecified site; R41.3 Other amnesia; Z11.59 Encounter for screening for other viral diseases
CPT/HCPCS: 73120

== ENCOUNTER 2025-07-25 16:44 | Inpatient (IN) | payer MEDICARE, OTHER, SELFPAY ==
[2025-07-25] VITALS (8 sets, daily range): BP systolic 103–128; BP diastolic 73–86; PULSE 75–89; RESP 13–18; TEMP 36.4–36.6; O2SAT 97–100; BMI 16.9
--- NOTE | ~2025-07-25 | XR_ITS ---
EXAMINATION: XR chest 1V DATE: 07/25/2025 17:15 INDICATION: Altered mental status TECHNIQUE: frontal view of the chest was obtained. COMPARISON: Chest radiograph dated 12/16/2023 FINDINGS: The lungs are clear with no focal airspace opacities, pulmonary edema, pleural effusion or pneumothorax. The cardiomediastinal silhouette is normal. IMPRESSION: 1. No acute cardiopulmonary disease. Reviewed, dictated and finalized at location A.
--- NOTE | ~2025-07-25 | CT_ITS ---
EXAMINATION: CT brain wo con DATE: 07/25/2025 17:14 INDICATION: Altered mental status TECHNIQUE: Computed tomography (CT) of the head was performed without intravenous contrast. Sagittal and coronal reconstructions were performed. The mA was adjusted according to patient size. Iterative reconstruction technique was employed. The dose-length product was 605.33 mGy-cm. COMPARISON: None FINDINGS: No acute intracranial hemorrhage, acute infarction or abnormal extra axial fluid collection. There is mild scattered white matter hypoattenuation consistent with chronic small vessel ischemic disease. Symmetric prominence of the sulci and subarachnoid spaces overlying the convexities consistent with moderate age- appropriate diffuse cerebral volume loss. Ventricles are normal and symmetric. No mass/mass effect. Scleral banding about the right globe which demonstrates central hypoattenuation likely representing single cannulated for treatment of retinal detachment. Left orbit is normal. Left mastoid effusion. Paranasal sinuses are clear. Intracranial calcified cerebral atherosclerosis is noted. IMPRESSION: 1. No acute intracranial process. 2. Moderate diffuse cerebral volume loss which is disproportionate for age with mild scattered white matter hypoattenuation consistent with chronic small vessel ischemic disease. Reviewed, dictated and finalized at location A. IMPRESSION: 1. No acute intracranial process. 2. Moderate diffuse cerebral volume loss which is disproportionate for age with mild scattered white matter hypoattenuation consistent with chronic small vess el ischemic disease.
--- NOTE | 2025-07-25 16:53 | ECG_ITS ---
Test Date: 2025-07-25 17:01:57 Measurements Intervals Reading Rate: 81 P: 6 NC: 182 QRS: -31 QRSD: 71 T: 4 QT: 364 QTc: 424 Interpretive Statements SINUS RHYTHM LEFTWARD AXIS LOW QRS VOLTAGE IN PRECORDIAL LEADS PROBABLE ANTERIOR MYOCARDIAL INFARCTION , AGE INDETERMINATE Electronically Signed On 07-26-2025 06:39:34 CDT by Jerome Castillo D.O
[2025-07-25 17:13] LABS: Hematocrit 37.1 % (37.0-47.0); Hemoglobin 12.9 g/dL (12.0-15.0); Immature Granulocyte Percent A 0.3 % (0-0.5); Lymphocytes Absolute Auto 1.08 K/mm3 (0.9-3.2); Mean Corpuscular HGB Conc 34.8 g/dl (32-36); Mean Corpuscular Hemoglobin 34.9 pg (26-34); Mean Corpuscular Volume 100.3 fl (80-100); Nucleated Red Blood Cells Absolute Auto 0.000 K/mm3 (0.0-0.012); Nucleated Red Blood Cells Perc 0.0 % (0.0-0.2); Platelet Count Result 247 k/mm3 (150-375); Red Blood Count 3.70 M/mm3 (4.2-5.4); White Blood Count 6.1 K/mm3 (4.5-10.0)
--- NOTE | 2025-07-25 17:20 | ED_ITS ---
HPI - Altered Mental Status General Chief Complaint: Altered Mental Status Stated Complaint: ams Time Seen by Provider: 07/25/25 16:48 History of Present Illness HPI narrative: Patient is a 65-year-old female with dementia who presents the ER with a possible worsening of her mental status. She was found at her home sitting on the ground with her above ibuprofen her lab. There is some medications turn across the room. She is oriented to self. She has no idea why she was on the ground. She does not know if she fell. She is wearing 2 pairs of glasses, an eye shield, and an eye patch and she does not know why. She is unsure how she got to the hospital though she just arrived in room ambulance. Apparently she has cared for her by her . He has not been contacted since 9:00 p.m. last night. He is found to have upstairs in a bathroom in their home. She is apparently unaware of this. Related Data Home Medications ?Medication ?Instructions ?Recorded ?Confirmed ?Last Taken ?Type dupilumab 300 mg/2 mL subcutaneous mg subcut 09/15/24 Unknown History pen injector (Dupixent) fluoxetine 10 mg tablet mg 07/25/25 Unknown History ondansetron HCl 4 mg tablet mg 07/25/25 Unknown Histo ry pantoprazole 40 mg tablet,delayed mg PO 07/25/25 Unkn own History release Allergies Allergy/AdvReac Type Severity Reaction Status Date / Time hydrochlorothiazide Allergy Intermediate Other Verified 02/27/25 04:58 hydrocodone Allergy Hallucinati Verified 02/27/25 04:58 ng atropine AdvReac Intermediate Fever Verified 02/27/25 04:58 Review of Systems 2 Review of Systems: ROS unobtainable: Yes unobtainable due to mental status [facility] Past Medical History Medical History (Updated 07/25/25 @ 20:49 by Huey Stark MD) Chronic hyponatremia Dementia Hypertension Anxiety Eczema Surgical History Surgical History History of bilateral hip replacements Family History Family History Mother Cervical cancer Macular degeneration Diabetes type 1, controlled Social History Social History (Updated 07/25/25 @ 20:16 by Liza Roque DO) Social History: Code status: Full code. Surrogate decision maker: Smoking status: Never smoker Second hand tobacco smoke exposure: Yes Alcohol intake: current Drinks per week: 7 Alcohol use details: One glass of wine a night. Substance use: never Lack of Transportation: No Lack of Food: Never True Current Housing: I Have Housing Concerned About Future Housing: No Difficulty Paying Gas/Electric Bills: No Difficulty Paying for Meds: No Currently Unemployed: No Education: Bachelor's Degree Difficulty w/ Childcare or Family Care: No Spiritual care concerns: No Exam 2 Narrative: GENERAL: Frail-appearing, thin, and in no acute distress. HEAD: Normocephalic, atraumatic. ENT: Mucous membranes moist. CHEST: Clear to auscultation. No respiratory distress. HEART: Regular rate and rhythm. Normal peripheral pulses. ABDOMEN: Soft, nontender, nondistended. EXTREMITIES: Normal range of motion. No edema. SKIN: Warm, dry, no rash. NEURO: Alert and oriented x1. PSYCH: Normal mood and affect. Course Course Emergency Course: Patient with significant hypokalemia. Oral and IV replacement ordered. Patient's children arrive. Patient will be admitted to the hospitalist service. They will need help with care coordination as well as PT/OT for placement. Apparently patient uses a wheelchair a lot due to progressive weakness and worsening dementia. Vital Signs Vital signs: Vital Signs Temperature 97.6 F 07/25/25 16:45 Pulse Rate 89 07/25/25 16:45 Respiratory Rate 18 07/25/25 16:45 Blood Pressure 114/81 07/25/25 16:45 Pulse Oximetry 100 07/25/25 16:45 Oxygen Delivery Room Air 07/25/25 16:45 Temperature 97.6 F 07/25/25 16:45 Pulse Rate 78 07/25/25 19:30 Respiratory Rate 13 07/25/25 19:30 Blood Pressure 109/73 07/25/25 19:30 Pulse Oximetry 97 07/25/25 19:30 Oxygen Delivery Room Air 07/25/25 16:45 MDM - Altered Mental Status Lab Data 07/25/25 17:03 07/25/25 17:03 Labs: Lab Results 07/25/25 07/25/25 Range/Units 17:03 17:23 WBC 6.1 (4.5-10.0) K/mm3 RBC 3.70 L (4.2-5.4) M/mm3 Hgb 12.9 (12.0-15.0) g/dL Hct 37.1 (37.0-47.0) % MCV 100.3 H (80-100) fl MCH 34.9 H (26-34) pg MCHC 34.8 (32-36) g/dl RDW 14.5 (11.5-14.5) % Plt Count 247 (150-375) k/mm3 MPV 9.8 (7.4-10.4) fl Immature Gran % (Auto) 0.3 (0-0.5) % Neut % (Auto) 68.2 (45.5-73.1) % Lymph % (Auto) 17.8 L (18.3-44.2) % [place] % (Auto) 12.9 H (2.6-8.5) % Eos % (Auto) 0.3 (0-4.4) % Baso % (Auto) 0.5 (0.2-1.2) % Lymph # (Auto) 1.08 (0.9-3.2) K/mm3 [place] # (Auto) 0.8 H (0.1-0.6) K/mm3 Eos # (Auto) 0.0 (0-0.3) K/mm3 Baso # (Auto) 0.0 (0.0-0.1) K/mm3 Abs Immat Gran (auto) 0.02 (0.00-0.031) K/mm3 Absolute Neuts (auto) 4.1 (1.3-6.7) K/mm3 Absolute Nucleated RBC 0.000 (0.0-0.012) K/mm3 Nucleated RBC % 0.0 (0.0-0.2) % PT 12.7 (11.1-14.7) Seconds INR 1.0 APTT 26.3 (22.3-36.8) Seconds Sodium 126 L (137-145) mmol/L Potassium 2.8 L* (3.4-5.0) mmol/L Chloride 93 L (98-107) mmol/L Carbon Dioxide 30 (22-30) mmol/L Anion Gap 3 L (4-12) mmol/L BUN 5 L (7-17) mg/dL Creatinine 0.43 L (0.7-1.0) mg/dL Estim Creat Clear Calc 80 ml/min Estimated GFR > 60 (59 - ) Glucose 97 (65-110) mg/dL Lactic Acid 2.0 (0.7-2.0) mmol/L Calcium 8.6 (8.4-10.2) mg/dL Phosphorus 1.6 L (2.5-4.5) mg/dL Magnesium 1.4 L (1.6-2.3) mg/dL Total Bilirubin 1.2 (0.2-1.3) mg/dL AST 47 H (14-36) U/L ALT 40 H (6-35) U/L Alkaline Phosphatase 97 (38-126) U/L Total Creatine Kinase 36 (30-135) U/L Troponin I < 0.012 (0.000-0.034) ng/mL Total Protein 5.1 L (6.3-8.2) g/dL Albumin 3.0 L (3.5-5.1) g/dL Vitamin B12 Pending Folate Pending Urine Color Yellow (Yellow) Urine Appearance Cloudy H (Clear) Urine pH 8.0 (5.0-9.0) Ur Specific [place] 1.005 (1.001-1.035) Urine Protein Negative (Negative) mg/dL Urine Glucose (UA) Negative (Negative) mg/dL Urine Ketones Negative (Negative) mg/dL Ur Blood (Man) Negative (Negative) Urine Nitrate Negative (Negative) Urine Bilirubin Negative (Negative) Urine Urobilinogen 1.0 (<2.0) mg/dL Leukocyte Esterase Rfl Negative (Negative) GRADY/UL Urine RBC 0-2 (0-2) /hpf Urine WBC 0-5 (0-3) /hpf Ur Squamous Epith Cells None seen (Few) /hpf Urine Bacteria None seen /hpf Urine Casts 0-2 Salicylates < 1.0 L (2-20) mg/dL Urine Opiates Screen Negative (Negative) Urine Methadone Screen Negative (Negative) Acetaminophen < 10 L (10-30) ug/mL Ur Barbiturates Screen Negative (Negative) Ur Phencyclidine Scrn Negative (Negative) Ur Amphetamine Screen Negative (Negative) U Benzodiazepines Scrn Negative (Negative) Urine Cocaine Screen Negative (Negative) U Cannabinoids Screen Negative (Negative) Ethyl Alcohol < 10 (<10) mg/dL Imaging Data Radiologist's impression: ITS Impressions Head CT 07/25/25 17:24 IMPRESSION: 1. No acute intracranial process. 2. Moderate diffuse cerebral volume loss which is disproportionate for age with mild scattered white matter hypoattenuation consistent with chronic small vessel ischemic disease. Chest X-Ray 07/25/25 17:31 IMPRESSION: 1. No acute cardiopulmonary disease. ECG Data EKG #1: ECG completion date: 07/25/25 ECG completion time: 17:01 EKG Interpretation: normal rate (81), sinus rhythm, non-specific ST changes and left axis Discharge Plan Discharge Clinical Impression: Hypokalemia Dementia Qualifiers: Dementia type: Alzheimer's Alzheimer's disease onset: early onset Dementia severity: unspecified severity Dementia behavioral or psychological symptom: u nspecified whether behavioral, psychotic, or mood disturbance or anxiety Q ualified Code(s): G30.0 - Alzheimer's disease with early onset Patient Disposition: Still a Patient Condition: Stable
[2025-07-25 17:24] LABS: INR 1.0; Partial Thromboplastin Time 26.3 Seconds (22.3-36.8); Prothrombin Time 12.7 Seconds (11.1-14.7)
[2025-07-25 17:26] LABS: Alanine Aminotransferase 40 U/L (6-35); Albumin Level 3.0 g/dL (3.5-5.1); Alkaline Phosphatase 97 U/L (38-126); Anion Gap 3 mmol/L (4-12); Aspartate Amino Transferase 47 U/L (14-36); Bilirubin,Total 1.2 mg/dL (0.2-1.3); Blood Urea Nitrogen 5 mg/dL (7-17); Calcium 8.6 mg/dL (8.4-10.2); Carbon Dioxide 30 mmol/L (22-30); Chloride 93 mmol/L (98-107); Estimated CRCL calculation 80 ml/min; Estimated Glomerular Filt Rate > 60; Glucose 97 mg/dL (65-110); Potassium 2.8 mmol/L (3.4-5.0); Sodium 126 mmol/L (137-145); Total Protein 5.1 g/dL (6.3-8.2)
[2025-07-25 17:30] LABS: Acetaminophen < 10 ug/mL (10-30); Salicylate < 1.0 mg/dL (2-20)
--- NOTE | 2025-07-25 17:30 | PC.NURSE ---
YOLANDA FONG JR [phone] SABRINA [phone]
[2025-07-25 17:36] LABS: Add Urine Microscopic? YES; Appearance Urine Cloudy (Clear); Glucose Urine UA Negative (Negative); Leukocyte Esterase Ur Negative LEU/UL (Negative); Nitrate Urine Negative (Negative); Non Pathogenic Casts 0-2; Specific Grav Ur 1.005 (1.001-1.035)
[2025-07-25 17:39] LABS: Troponin I < 0.012 ng/mL (0.000-0.034)
--- OUTSIDE RECORDS SUMMARY | 2025-07-25 17:39 | XMS_ITS | Encounter Summary ---
Author Organization [facility] Address [facility] [place] [address] Care Team Providers Care Freight Car Builder Name Role Phone Nydia Barros NP Primary Care Provider [phone] Reason for Referral * Imaging (Routine) - Authorized Specialty Diagnoses / Procedures Referred By Contac t Referred To Contact RADIOLOGY Diagnoses Elevated liver enzymes Elevated bilirubin Procedures US ABD LIMITED Nydia Barros NP [address] [place] [address] Phone: tel: fax: [facility] [address] [facility] [address] [place] [address] Phone: tel: fax: Referral ID Status Reason Start Date Expiration Date V isits Requested Visits Authorized [id number] Authorized 06/16/2025 06/16/2026 1 1 Encounter Details Date Type Department Care Team (Latest Contact Info) Description 06/15/2025 Results Follow-Up [facility] Family Medicine - [place] [address] [facility] [address] [place] [id number] Nydia Barros NP [address] [place] [address] TSH W/REFLEX, COMPREHENSIVE METABOLIC PANEL, VITAMIN D 25 [place] Social History Tobacco Use Types Packs/Day Years Used Date Smoking Tobacco: Never Passive Smoke Exposure: Never Smokeless Tobacco: Never Comments:Have not used tobac co Alcohol Use Standard Drinks/Week Comments Yes 23.3 (1 standard drink = 0.6 oz pure alcohol) daily wine consumption PHQ-2 Answer Date Recorded Patient Health Questionnaire-2 Score 3 05/17/2025 Comments No Sex and Gender Information Value Date Recorded Sex Assigned at Female 12/16/2024 3:00 PM SUSTAINABILITY SPECIALIST Legal Sex Female 7:44 PM CDT Gender Identity Female 12/16/2024 3:00 PM SUSTAINABILITY SPECIALIST Sexual Orientation Not on file documented as of this encounter Plan of Treatment Upcoming Encounters Date Type Department Care Team (Late st Contact Info) Description 08/04/2025 10:20 AM CDT Allied Health/Nurse Visit [facility] [address] [place] [address] Nydia Barros NP [address] [place], [place] [id number] 11/14/2025 10:40 AM SUSTAINABILITY SPECIALIST Office Visit [facility] [address] [address] [place] [address] Nydia Barros NP [address] [place], [place] [id number] Scheduled Orders Name Type Priority Associated Diagnoses Orde r Schedule US ABD LIMITED Ultrasound Routine Elevated liver enzymes Elevated bilirubin Expected: 06/16/2025, Expires: 06/16/2026 documented as of this encounter Visit Diagnoses Diagnosis Elevated liver enzymes- Primary Nonspecific elevation of levels of transaminase or lactic acid dehydrogenase (LDH) Elevated bilirubin Jaundice, unspecified, not of documented in this encounter Additional Health Concerns Assessment Noted Time PHQ-9 Depression Total Score: 6 05/17/20 25 12:45 PM CDT documented as of this encounter Care Teams Freight Car Builder Relationship Specialty Start Date End Date Nydia Barros NP [address] [place], [place] [address] PCP - General NURSE PRACTITIONER 05/10/21 documented as of this encounter
--- OUTSIDE RECORDS SUMMARY | 2025-07-25 17:39 | XMS_ITS | Clinical Summary ---
Author Organization [facility] Address [facility] [place] [address] Care Team Providers Care Front Maker Lockstitch Name Role Phone Nydia Barros NP Primary Care Provider [phone] Allergies Active Allergy Reactions Criticality Noted Date Comments Constantin Inhibitors Other (see comment) Low 09/06/2022 Causes Eczema to flair up. Stop per dermatology Atropine Other (see comment) Low 07/18/2014 Fever; reaction as child Amoxicillin-Pot Clavulanate Diarrhea High 10/25/20 24 Recent episode of C-Diff after Augmentin use given in ER Hydrochlorothiazide Other (see comment) High 09/15/2024 Medications prednisoLONE acetate (PRED FORTE) 1 % ophthalmic suspension 11/18/20 23 Active clobetasol (TEMOVATE) 0.05 % ointment Apply topically 2 (two) times daily. 05/12/20 24 Active hydrocortisone (HYTONE) 2.5 % ointment Apply topically 2 (two) times daily. 05/12/20 24 Active lidocaine (LIDODERM) 5 % 09/15/20 24 Active Sod Picosulfate-Mag Ox-Cit Acd (CLENPIQ) 10-3.5-12 MG-GM -GM/175ML SolutionIndicat ions:Change in stool,Poor appetite Take 175 mLs by mouth 2 (two) times a day. Per GI instructions 350 mL 12/16/19 25 Active pantoprazole EC (PROTONIX) 40 MG tabletIndicatio ns:Gastroesopha geal reflux disease, unspecified whether esophagitis present Take 1 tablet (40 mg total) by mouth daily. 90 tablet 3 02/23/20 25 026 Active donepezil (ARICEPT) 10 MG Tab Take 1 tablet (10 mg total) by mouth nightly at bedtime. Active DUPIXENT 300 MG/2ML injection (PEN) Inject 2 mLs (300 mg total) into the skin every 14 (fourteen) days. Active FLUoxetine (PROZAC) 10 MG tabletIndicatio ns:Depression, unspecified depression type Take 2 tablets (20 mg total) by mouth daily. 06/14/20 25 Active ondansetron (ZOFRAN) 4 MG tabletIndicatio ns:Nausea Take 1 tablet (4 mg total) by mouth every 8 (eight) hours as needed. 30 tablet 07/12/20 25 Active ondansetron (ZOFRAN) 4 MG tabletIndicatio ns:Nausea Take 1 tablet (4 mg total) by mouth every 8 (eight) hours as needed. 30 tablet 11/25/19 25 025 Discontin ued(Reord er) Active Problems Problem Noted Date Diagnosed Date Cognitive impairment 07/20/2025 Overview (07/20/2025): - Her reports a significant decline in her cognitive function, including episodes of hallucinations where she perceives the presence of others in their hotel room when they were on vacation recently. -She is no longer left alone. Her is retired and stays with her. - She is under the care of Dr. Owen, a neurologist specializing in memory disorders at [facility], -They have not been given a definitive diagnosis yet. -She is due for a follow up with neurology to likely undergo further neurological testing. -Is currently taking Aricpet 10mg at bedtime. Assessment & Plan (07/20/2025 4:09 PM CDT): -Her weight remains stable, but there is a noted decline in cognitive function. -Continue working on increasing caloric intake. Discussed adding on Rexulti which could be beneficial for depressive symptoms and mood changes associated with dementia. However, it may not be covered by insurance. Remeron was also considered as an option to improve appetite and sleep. The risk of serotonin syndrome due to her current Prozac regimen was noted. -Pt's is going to consult with neurology first regarding the progression of her condition and the potential addition of any new medication to her treatment plan. -Pt's is going to call over to her neurologist to inform as he is unaware when her follow-up appointment is and to inform of her worsening cognitive decline. From reviewing the last note from neurology it appears patient will likely have further neurological testing done to assess what type of dementia she has specifically Alzheimer's Depression, unspecified depression type 05/17/20 25 Overview (07/20/2025): Doing ok with fluoxetine 20mg daily. No SI/HI. Is needing to schedule with senior renewal still. . Prior visit- Increased depression, decreased appetite, weight loss (12 pounds in the last three months), little interest and pleasure in doing things she used to enjoy. Here with who also agrees to this and believes it is related to her medical conditions that she is currently dealing with. She is following with multiple specialist such as dermatology, rheumatology,ortho and neurology. Patient's who is also here to provide history as patient is a poor historian due to her cognitive impairment. Mostly patient only eats 2 meals a day and sometimes she just picks at them. She reports feeling full quick. Of note patient does consume alcohol daily. Patient's agrees to this. She typically drinks 2 glasses of Chardonnay 6oz glass nightly. Denies drinking any more or any less. Denies any withdrawal symptoms. Recently did have increased elevated liver enzymes and alk phos for which she is to have rechecked this month. Logistics Supply Officer is monitoring and ordering following up testing. Patient is not having any right upper quadrant pain or any jaundice. Assessment & Plan (07/20/2025 4:08 PM CDT): At this time resume fluoxetine at same dose. They are planning to call senior renewal to schedule an appointment as well. Pt denies any SI/HI. Assessment & Plan (06/14/2025 11:53 AM CDT): Will increase fluoxetine to 20mg at this time. Pt's to inform neurology that she is no longer taking Benazepril due to side effects as they may have another recommendation for her to try. Would consider adding on an antipsychotic such as Abilify to help with appetite and depressive symptoms however there was mention of possible Alzheimer's so I will have to defer further testing to Dr. Avalos or her neurologist We went over focusing on high caloric foods at this time such as protein shakes, eating small frequent meals throughout the day. If there is any continual weight loss we will have to monitor patient closely and will encourage patient to bring in a food log to review. (They did not bring in today). is trying to give patient high calorie foods/drinks. Discussed the importance of limiting alcohol consumption. I went over use of naltrexone however patient declines wanting to begin at this time. Is drinking 2 glasses of wine daily. Will recheck liver enzymes as her AST, ALT, alk phos was elevated when checked by rheumatology. Patient and may benefit in doing the senior renewal program at [facility] in [facility]. It is ran by Dr. Avalos who used to also run the memory clinic so pt would benefit from seeing him. Therapy is offered as well and pt may benefit from. They agree. Referral placed. Assessment & Plan (05/17/2025 1:20 PM CDT): With shared decision making patient is interested in beginning daily medication for depression. I informed patient and that patient will need to take every day as in the past patient has not done well with being compliant with medications. Her will monitor closely make sure she is taking. Patient also agrees to this. Will begin fluoxetine 10 mg once daily. Will patient follow-up in 4 weeks to assess tolerance We went over focusing on high caloric foods at this time such as protein shakes, conversing which is, eating small frequent meals throughout the day. If there is any continual weight loss we will have to monitor patient closely and will encourage patient to bring in a food log to review. Discussed the importance of limiting alcohol consumption. I went over use of naltrexone however patient declines wanting to begin at this time. Colitis 12/17/2024 Nausea 12/17/2024 Poor appetite 12/17/2024 Alzheimer's [...] Problem Noted Date Diagnosed Date Resolved Date Change in stool 12/17/2024 07/20/2025 Cognitive impairment 09/27/2022 023 Mixed dyslipidemia 10/20/2017 2 Encounters Date Type Department Care Team Description 07/20/2025 12:20 PM CDT Office Visit [address] [place] [address] Nydia Barros NP Anxiety (Patient presents with c/o increase anxiety, feels shaky thinks its from her nerves.) 07/20/2025 Travel 07/12/2025 10:00 AM CDT Allied Health/Nurse Visit [address] [place] [address] Nydia Barros NP Allied Health Visit (Here for weight check. ) 07/12/[address] [place] [address] Nydia Barros NP Refill Request 07/12/2025 Travel 06/28/2025 10:20 AM CDT Allied Health/Nurse Visit [address] [place] [address] Nydia Barros NP Weight Check 06/28/2025 Travel 06/20/2025 Scan [employer] INFO SRVCS Scanned, [facility] 06/15/2025 Results Follow-Up [address] [place] [address] Nydia Barros NP TSH W/REFLEX, COMPREHENSIVE METABOLIC PANEL, VITAMIN D 25 OH 06/14/2025 11:00 AM CDT Office Visit [address] [place] [address] Nydia Barros NP Depression (Patient present to follow up on Depression, has not noticed much of a difference per ) 06/14/2025 Travel 06/09/2025 MyChart Message Enc [address] [place] [address] [facility] Provider results. 05/26/2025 1:16 PM CDT - 05/26/2025 11:59 PM CDT Hospital Encounter [facility] [place] [address] Nydia Barros NP Discharge Disposition: Home or Self Care (Routine Discharge) 05/26/2025 Results Follow-Up [address] [place] [address] Nydia Barros NP MG SCREENING W ED SHERRILL DIGI 05/26/2025 Travel 05/24/2025 11:20 AM CDT - 05/24/2025 11:59 PM CDT Hospital Encounter [facility] Mammography [address] [place] [address] Nydia Barros NP Discharge Disposition: Home or Self Care (Routine Discharge) 05/24/2025 Travel 05/19/[address] [place] [address] Nydia Barros NP FYI 05/17/2025 12:40 PM CDT Office Visit [address] [place] [address] Nydia Barros NP Depression (Patient presents to discuss depression, rheumatology requested she see Nydia to be treated for Depression) 05/17/2025 Travel 04/28/2025 Scan [facility] INFO SRVCS Scanned, [facility] Image (SCAN) from Last 3 Months Immunizations Immunization Administration Dates Next Due Fluzone 6 Months+ Quad (0.5 mL Prefilled Syringe) 09/04/2023,09/13/2020 Fluzone High Dose (IIV, triv alent, 0.5mL) 10/19/2024 Influenza (Generic) 11/15/2021, 6,09/29/2015,2012,09/30/2012,08/28/2011,11/22/2002 Influenza Adult (Generic) 09/27/2019,07/2019,10/20/2017,2013 MODERNA COVID-19 BIVALENT (1 2+), MRNA, LNP-S, PF 11/22/2022 MODERNA COVID-19 (RETURNED CASE INSPECTOR KYLAH LINNEA), MRNA, LNP-S, PF, 50 MCG/ 0.25 ML DOSE 06/16/2022,11/15/2021 Pneumococcal (Pneumovax 23) 03/27/2016 Tdap (Generic) 03/27/2016 Zoster (Zostavax) 92021 Unt/0.65Ml 03/27/2016 Family History Medical History Relation [...] tobacco Alcohol Use Standard Drinks/Week Comments Yes 23.3 (1 standard drink = 0.6 oz pure alcohol) daily wine consumption PHQ-2 Answer Date Recorded Patient Health Questionnaire-2 Score 3 05/17/2025 Comments No Sex and Gender Information Value Date Recorded Sex Assigned at Female 12/16/2024 3:00 PM WELLNESS RN Legal Sex Female 7:44 PM CDT Gender Identity Female 12/16/2024 3:00 PM WELLNESS RN Sexual Orientation Not on file Last Filed Vital Signs Vital Sign Reading Time Taken Comments Blood Pressure 120/72 07/20/2025 12:20 PM CDT Pulse 77 07/20/2025 12:20 PM CDT Temperature 36.1 C (97 F) 07/20/2025 12:20 PM CDT Respiratory Rate 16 07/20/2025 12:20 PM CDT Oxygen Saturation 97% 07/20/2025 12:20 PM CDT Inhaled Oxygen Concentration - - Weight 45.8 kg (101 lb) 07/20/2025 12:20 PM CDT Height 160 cm (5' 3) 07/20/2025 12:20 PM CDT Body Mass Index 17.89 07/20/2025 12:20 PM CDT Plan of Treatment Upcoming Encounters Date Type Department Care Team (Late st Contact Info) Description 08/04/2025 10:20 AM CDT Allied Health/Nurse Visit [facility] Family Medicine - [place] [address] [facility] [address] [place] [address] Nydia Barros NP [address] [place] [address] 11/14/2025 10:40 AM WELLNESS RN Office Visit [facility] Family Medicine - [place] [address] [facility] [address] [place] [address] Nydia Barros NP [address] [place], [place] [address] Health Maintenance Due Date Last Done Comments Zoster Vaccines (2 of 3) 05/22/2016 03/27/2016 Pneumococcal Vaccine: 50+ Years (2 of 2 - PCV) 03/27/2017 03/27/2016 Annual Medicare Wellness Visit 02/11/2024 Dexa Scan (General) 02/11/2024 COVID-19 Vaccine ( - season) 2024 11/22/2022, 06/16/2022, 11/15/2021, Additional history exists DTaP, Tdap and Td Vaccines (2 - Td or Tdap) 03/27/2026 03/27/2016 Mammogram Screening 05/24/2027 05/24/2025, 02/08/2021, 12/27/2019, Additional history exists Colorectal Cancer Screening Colonoscopy (10 Years) 02/23/2028 02/22/2025, 12/06/2012 RSV Immunization or 60+ Years (1 - 1-dose 75+ series) 2034 Hepatitis C Completed 04/04/2025, 09/06/2022 PHQ-2 (Physician [employer] [place]) Completed 05/17/2025 Meningococcal B Vaccine Aged Out No l onger eligible based on patient's age to complete this topic Meningococcal Vaccine Aged Out No leilani harish eligible based on patient's age to complete this topic RSV Immunizations Under 20 Months Aged Out No longer eligible based on patient's age to complete this topic Procedures Procedure Name Priority Date/Time Associated Diagnosis Comments COLLECTION VENOUS BLOOD VENIPUNCTURE Routine 06/14/2025 11:46 AM CDT Vitamin D deficiency VITAMIN D, 25 OH Routine 06/14/2025 11:4 5 AM CDT Vitamin D deficiency COMPREHENSIVE METABOLIC PANEL Routine 06/14/2025 11:45 AM CDT Weight loss TSH W/REFLEX Routine 06/14/2025 11:45 AM CDT Weight loss MG SCREENING W ED SHERRILL DIGI KAREN 05/24/2025 12:07 PM CDT Encounter for screening mammogram for malignant neoplasm of breast IMAGE GENERIC 04/28/2025 IMAGE GENERIC 04/28/2025 HEPATITIS C ANTIBODY W/RFX TO HCV RNA Routine 09/06/2022 11:04 AM CDT Need for hepatitis C screening test COLONOSCOPY Routine 12/06/2012 12:00 AM WELLNESS RN from Last 3 Months or Most Recently Relevant to Health Maintenance Results * TSH W/REFLEX (06/14/2025 11:45 AM CDT) TSH 1.519 0.358 - 3.740 uIU/ML 06/15/2025 11:48 AM CDT [facility] 06/14/2025 11:4 5 AM CDT us Nydia Barros NP LABORATORY Final Res ult [facility] [address] [place] [address], * (ABNORMAL) COMPREHENSIVE METABOLIC PANEL (06/14/2025 11:45 AM CDT) SODIUM S/P/B 133(L) 136 - 145 MMOL/L 06/15/2025 11:58 AM CDT [facility] Comment:RESULT VERIFIED POTASSIUM S/P/B 3.9 3.5 - 5.1 MMOL/L 06/15/2025 11:58 AM CDT [facility] CHLORIDE S/P/B 93(L) 98 - 107 MMOL/L 06/15/2025 11:58 AM CDT [facility] CO2 30.7 21 - 32 MMOL/L 06/15/2025 11:58 AM CDT [facility] GLUCOSE 102(H) 70 - 99 MG/DL 06/15/2025 11:48 AM CDT [facility] BUN 5(L) 7 - 18 MG/DL 06/15/2025 11:48 AM CDT [facility] CREATININE S/P/B 0.64 0.55 - 1.02 MG/DL 06/15/2025 11:48 AM CDT [facility] CALCIUM S/P/B 8.9 8.4 - 10.5 MG/DL 06/15/2025 11:48 AM CDT [facility] BILIRUBIN TOTAL S/P/B 1.1(H) 0.2 - 1.0 MG/DL 06/15/2025 11:48 AM T [facility] ALKALINE PHOSPHATASE S/P/B 131 55 - 142 U/L 06/15/2025 11:48 AM CDT [facility] AST 72(H) 15 - 37 U/L 06/15/2025 11:48 AM CDT [facility] ALT 77(H) 14 - 59 U/L 06/15/2025 11:48 AM CDT [facility] TOTAL PROTEIN S/P/B 5.0(L) 6.4 - 8.2 G/DL 06/15/2025 11:48 AM CDT [facility] ALBUMIN S/P/B 2.7(L) 3.4 - 5.0 G/DL 06/15/2025 11:48 AM T [facility] ANION GAP 9.3 5 - 15 MMOL/L 06/15/2025 11:58 AM CDT [facility] Comment:REFERENCE RANGE NOT ESTABLISHED OSMOLALITY (CALC) 273 MOSM/KG 025 11:58 AM CDT [facility] Comment:REFERENCE RANGE NOT ESTABLISHED GFR ESTIMATE >90 >90 ML/MIN/1. 73 M2 06/15/2025 11:48 AM CDT [facility] GFR NOTES GFR REFERENCE S: 06/15/2025 11:48 AM CDT [facility] Comment: THE ESTIMATED GFR IS CALCULATED USING THE 2020 CKD-EPI EQUATION. THE FOLLOWING CATEGORIES FOR GRADING RENAL FUNCTION ARE RECOMMENDED BY THE INTERNATIONAL SOCIETY OF NEPHROLOGY (KDIGO 2012 CLINICAL PRACTICE GUIDELINE). G1,NORMAL OR HIGH: >89 ml/min/1.73 m2 G2,MILDLY DECREASED: 60-89 ml/min/1.73 m2 G3A,MILDLY TO MODERATELY DECREASED: 45-59 ml/min/1.73 m2 G3B,MODERATELY TO SEVERELY DECREASED: 30-44 ml/min/1.73 m2 G4,SEVERELY DECREASED: 15-29 ml/min/1.73 m2 G5,KIDNEY FAILURE: <15 ml/min/1.73 m2 06/14/2025 11:4 5 AM CDT Nydia Barros REFUELING RAMP SUPERVISOR LABORATORY Final Res ult [address] [address], * VITAMIN D 25 OH (06/14/2025 11:45 AM CDT) VITAMIN D 25 HYDROXY TOTAL S/P/B 72.8 30 - 100 NG/ML 06/15/2025 11:48 AM CDT [facility] Comment: DEFICIENT <20 INSUFFICIENT 20-30 SUFFICIENT 30-100 06/14/2025 11:4 5 AM CDT Nydia Barros REFUELING RAMP SUPERVISOR LABORATORY Final Res ult [address] [address], * MG SCREENING W ED SHERRILL DIGI (05/24/2025 12:07 PM CDT) Anatomical Region Laterality Modality Breast Bilateral Mammography 05/24/2025 12:1 9 PM CDT Impressions 05/26/2025 1:56 PM CDT IMPRESSION: Benign findings. Recommendation: 1. Routine Screening, Bilateral Assessment: ACR BI-RADS 2 - BENIGN FINDING(S) Ordered By: NYDIA BARROS Interpreted By: Stefan Mehta, 05/24/2025 12:19 PM Narrative 05/26/2025 1:[address] PM CDT [address] [address] Examination: Screening bilateral mammogram Exam Date: 05/24/2025 11:40 AM Clinical history: Routine screening. Comparison: 02/08/2021, 12/27/2019 Technique: Digital screening mammography of both breasts was performed. Breast tomosynthesis acquisitions were obtained and reviewed. This study was read with the assistance of a computer-aided detection system. Tissue density: The breasts are heterogeneously dense, which may obscure small masses. Findings: No suspicious microcalcification, architectural distortion, or mass. Stable, benign mammogram. Nydia Barros REFUELING RAMP SUPERVISOR MAMMO Final Res ult * IMAGE GENERIC (04/28/2025) Only the most recent of2 resultswithin the time period is included. Anatomical Region Laterality Modality Other 04/28/2025 us [facility] Scanned SCANNING Final Resu lt * HEPATITIS C ANTIBODY W/RFX TO HCV [...] a test for HCV RNA (test code 53755) is suggested. For additional information please refer to http://education.[employer]/faq/HVX81a0 (This link is being provided for informational/ educational purposes only.) 09/06/2022 11:0 4 AM CDT 09/06/2022 11:05 AM CDT Narrative [facility] - 09/11/2022 9:22 AM CDT FASTING:YES FASTING: YES us Nydia Barros REFUELING RAMP SUPERVISOR LABORATORY Final Res ult [facility] [address] [place] [address] * Colonoscopy (12/06/2012 12:00 AM WELLNESS RN) 12/06/2012 12/06/2012 Narrative [facility] TO EPIC CONVERSION - 12/06/2012 12:00 AM WELLNESS RN Documented hx of procedure Procedure Note Liv Mckeon MD - 09/27/2018 Documented hx of procedure us Generic Conversion Md MCKEON GI PROCEDURE ORDERABLES Final Result [facility] TO EPIC CONVERSION from Last 3 Months or Most Recently Relevant to Health Maintenance Insurance MEDICARE [facility] MEDICARE Advance Directives Documents on File Type Date Recorded Patient Internal Salesperson Expl anation Power of Manager Lpn 07/30/2024 9:48 AM Power of Manager Lpn 07/09/2024 1:57 PM Care Teams Front Maker Lockstitch Relationship Specialty Start Date End Date Nydia Barros NP [address] [place] [id number] PCP - General NURSE PRACTITIONER 05/10/21
--- OUTSIDE RECORDS SUMMARY | 2025-07-25 17:39 | XMS_ITS | Patient Health Record ---
Author Organization [facility] Address [address] [place], [place] [address] Care Team Providers Care Twister In Name Role Phone LIBBY RIVERO Unavailable [phone] Nydia Barros Unavailable Unavailable Allergies No Known Allergies Reason For Referral No Information Medications Medication SIG (Take, Route, Fr equency, Duration) Notes Start Date End Date Status Dupixent 300 MG/2ML as directed Subcutaneous Active Vital Signs Height-cm 160.02 cm 04/25/2025 Weight-kg 52.16 kg 04/25/2025 Height 63 in 04/25/2025 Weight 115 lbs 04/25/2025 BMI 20.37 kg/m2 04/25/2025 Encounters Encounter Location Date Provider Diagnosis [facility] [address] [facility] [address] [place], [place] [id number] 08/05/2024 LIBBY SNOOK Lesion of plantar ne rve, left lower limb G57.62 ; Metatarsalgia, right foot M77.41 ; Metatarsalgia, left foot M77.42 ; Lesion of plantar nerve, right lower limb G57.61 ; Tinea unguium B35.1 ; Hallux valgus (acquired), left foot M20.12 ; Atherosclerosis of [place] arteries of extremities with intermittent claudication, bilateral legs I70.213 ; Pain in right foot M79.671 and Pain in left foot M79.672 [facility] [place] [address] [place], [place] [id number] 11/01/2024 LIBBY SNOOK Tinea unguium B35.1 ; Pain in left foot M79.672 ; Pain in right foot M79.671 ; Atherosclerosis of [place] arteries of extremities with intermittent claudication, bilateral legs I70.213 and Acquired keratosis [keratoderma] palmaris et plantaris L85.1 [facility] [place] [address] [place] [id number] 01/31/2025 LIBBY SNOOK Tinea unguium B35.1 ; Pain in right foot M79.671 ; Pain in left foot M79.672 ; Atherosclerosis of [place] arteries of extremities with intermittent claudication, bilateral legs I70.213 and Acquired keratosis [keratoderma] palmaris et plantaris L85.1 [facility] [place] [address] [address] [place] [id number] 04/25/2025 LIBBY SNOOK Fungal infection of nail B35.1 ; Pain in right toe(s) M79.674 ; Pain in left toe(s) M79.675 ; Atherosclerosis of [place] arteries of extremities with intermittent claudication, bilateral legs I70.213 and Acquired keratoderma L85.1 Assessments Encounter Date Diagnosis (ICD Code) Assessment Notes Treatment Notes Treatment Clinical Notes Section Notes 08/05/2024 Metatarsalgia, right foot (ICD-10 - M77.41) Metatarsalgia: I discussed anti-inflammatory treatment options and various means of immobilization with the patient. I educated the patient on icing and stretching, supportive shoegear, and the use of orthotic devices and bracing. 08/05/2024 Lesion of plantar nerve, left lower [...] reserved for those who fail conservative therapy. 11/01/2024 Tinea unguium (ICD-10 - B35.1) Nails 1-5 Bilateral were debrided extensively with nail nippers and emery board, reducing length and girth to pink healthy tissue with any subungual debris and necrotic tissue removed 11/01/2024 Pain in left foot (ICD-10 - M79.672) 01/31/2025 Tinea unguium (ICD-10 - B35.1) Nails 1-5 Bilateral were debrided extensively with nail nippers and emery board, reducing length and girth to pink healthy tissue with any subungual debris and necrotic tissue removed 01/31/2025 Pain in right foot (ICD-10 - M79.671) 04/25/2025 Pain in right toe(s) (ICD-10 - M79.674) 04/25/2025 Fungal infection of nail (ICD-10 - B35.1) 04/25/2025 Pain in left toe(s) (ICD-10 - M79.675) 01/31/2025 Pain in left foot (ICD-10 - M79.672) 11/01/2024 Pain in right foot (ICD-10 - M79.671) 08/05/2024 Metatarsalgia, left foot (ICD-10 - M77.42) 08/05/2024 Lesion of plantar nerve, right lower limb (ICD-10 - G57.61) Voltaren Gel: Recommend that the patient obtain over the counter topical Voltaren Gel 1%. I educated the patient on its use. Shoe Recommendation: Advised patient on appropriate shoe gear for protection, healing and good foot health. 11/01/2024 Atherosclerosis of [place] arteries of extremities with intermittent claudication, bilateral legs (ICD-10 - I70.213) 04/25/2025 Atherosclerosis of [place] arteries of extremities with intermittent claudication, bilateral legs (ICD-10 - I70.213) 01/31/2025 Atherosclerosis of [place] arteries of extremities with intermittent claudication, bilateral legs (ICD-10 - I70.213) 01/31/2025 Acquired keratosis [keratoderma] palmaris et plantaris (ICD-10 - L85.1) A total of 1 corns or calluses, as described in the note above, were cut and pared utilizing a #15 blade 11/01/2024 Acquired keratosis [keratoderma] palmaris et plantaris (ICD-10 - L85.1) A total of 1 corns or calluses, as described in the note above, were cut and pared utilizing a #15 blade 04/25/2025 Acquired keratoderma (ICD-10 - L85.1) 08/05/2024 Tinea unguium (ICD-10 - B35.1) Nails [...] and post-operative treatment course. 08/05/2024 Atherosclerosis of [place] arteries of extremities with intermittent claudication, bilateral legs (ICD-10 - I70.213) 08/05/2024 Pain in right foot (ICD-10 - M79.671) 08/05/2024 Pain in left foot (ICD-10 - M79.672) Plan Of Treatment Next Appt Details Provider Name:LIBBY RIVERO, 03:20:00 PM, [address], [address], [phone], Insurance Providers Payer Name Payer Address Payer Phone Subscriber Number Group Number Insured Name Patient Relationship to Insured Coverage Start Date Coverage End Date Medicare Part B [facility] [address] [place] [address] [id number] Brenna Conte Self - patient is the insured for Life ([employer]) [address] [place], [place] [id number] KEANU CONTE Spouse - patient is the spouse of the insured
--- OUTSIDE RECORDS SUMMARY | 2025-07-25 17:39 | XMS_ITS | Encounter Summary ---
Author Organization [facility] Address [address] [place] [address] Care Team Providers Care Casing Tester Name Role Phone Nydia Barros NP Primary Care Provider [phone] Encounter Details Date Type Department Care Team (Late st Contact Info) Description 05/26/2025 Results Follow-Up [facility] Family Medicine [facility] [address] [phone] Nydai Barros, BRAIN [address] [place], [place] [phone] MG SCREENING W ED SHERRILL DIGI Social History Tobacco Use Types Packs/Day Years [...] Sex Assigned at Female 12/16/2024 3:00 PM SPEEDBOAT DRIVER Legal Sex Female 7:44 PM CDT Gender Identity Female 12/16/2024 3:00 PM SPEEDBOAT DRIVER Sexual Orientation Not on file documented as of this encounter Plan of Treatment Upcoming Encounters Date Type Department Care Team (Late st Contact Info) Description 08/04/2025 10:20 AM CDT Allied Health/Nurse Visit [facility] Medicine [facility] [address] [facility] [address] [place] [address] Nydia Barros NP [address] [place] [address] 11/14/2025 10:40 AM SPEEDBOAT DRIVER Office Visit [facility] Family Medicine - [place] [address] [facility] [address] [place] [address] Nydia Barros NP [address] [place] [address] documented as of this encounter Visit Diagnoses Not on filedocumented in this encounter Additional Health Concerns Assessment Noted Time PHQ-9 Depression Total Score: 6 05/17/20 25 12:45 PM CDT documented as of this encounter Care Teams Casing Tester Relationship Specialty Start Date End Date Nydia Barros NP [address] [place] [address] PCP - General NURSE PRACTITIONER 05/10/21 documented as of this encounter
--- OUTSIDE RECORDS SUMMARY | 2025-07-25 17:39 | XMS_ITS | Clinical Summary ---
Author Organization [facility] Address [address] [place] [address] Care Team Providers Care Millwright Supervisor Name Role Phone Nydia Barros MD Primary Care Provider [phone] Allergies Active Allergy Reactions Criticality Noted Date [...] 04/05/2024 Assessment & Plan (01/17/2025 3:22 PM DECK SCALER): Here today to transfer care from her [...] Encounters Date Type Department Care Team Description 07/21/2025 Telephone [facility] [address] [facility] 6th Floor, [address] [facility] [place] [place] [address] Praful Sierra, MADDISON 06/23/2025 Documentation [facility] Orthopaedic Surgery [address] [place] [address] [place] [phone] Belgica Chun CMA 06/23/2025 Orders Only [facility] Orthopaedic Surgery [address] [place] [address] [address] [place] [phone] Prakash Barajas MD Right knee pain, unspecified chronicity (Primary Dx); Personal history of congenital hip dysplasia 06/20/2025 1:00 PM CDT Office Visit [facility] Orthopaedic Surgery [address] [place] [phone] Prakash Barajas MD Right knee pain, unspecified chronicity (Primary Dx); Primary osteoarthritis of right knee; Leg length discrepancy from Last 3 Months Social History Tobacco [...] Comments Blood Pressure 122/77 11/30/2024 2:27 PM DECK SCALER Pulse 93 11/30/2024 2:27 PM DECK SCALER Temperature - - Respiratory Rate - - Oxygen Saturation - - Inhaled Oxygen Concentration - - Weight 55.3 kg (122 lb) 11/30/2024 2:27 PM DECK SCALER Height 160 cm (5' 3) 11/30/2024 2:27 PM DECK SCALER Body Mass Index 21.61 11/30/2024 2:27 PM DECK SCALER Plan of Treatment Health Maintenance Due Date Last Done Comments Colon Cancer Screening-Colonoscopy 1960 Depression Screening 1959 Fall Risk Assessment 1960 Hepatitis C Screening 1960 Osteoporosis Screening-Bone Density Scan 1959 Hepatitis B Screening 1977 Zoster Vaccine (2 of 3) 05/22/2016 03/27/2016 Pneumococcal vaccine 65+ (2 of 2 - PCV) 03/27/2017 03/27/2016 Well Visit 65+ 02/11/2024 Covid-19 Vaccine (5 - 2023-2 5 season) 2024 11/22/2022, 06/16/2022, 11/15/2021, Additional history exists Influenza Vaccine (#1) 2025 , 09/04/2023, 11/15/2021, Additional history exists DTaP/Tdap/Td Vaccine (2 - Td or Tdap) 03/27/2026 03/27/2016 Breast Cancer Screening-Mammogram 05/24/2026 05/24/2025, 05/24/2025, 02/08/2021, Additional history exists Procedures Procedure Name Priority Date/Time Associated Diagnosis Comments ND ARTHROCENTESIS ASPIR&/INJ MAJOR JT/BURSA W/O US Routine 06/20/2025 1:00 PM CDT Right knee pain, unspecified chronicity Primary osteoarthritis of right knee from Last 3 Months Results * ND ARTHROCENTESIS ASPIR&/INJ MAJOR JT/BURSA W/O US (06/20/2025 1:00 PM CDT) Narrative Prakash Barajas MD - 06/20/2025 1:00 PM CDT Prakash Barajas MD 06/23/2025 3:32 PM Large Joint Injection: R knee Performed by: Prakash Barajas MD Authorized by: Prakash Barajas MD Large Joint Injection/Aspiration: Consent Given by: Patient Verbal consent obtained: Yes Supporting Documentation: Indications: Pain Procedure Details: Location: Knee Site: R knee Prep: patient was prepped and draped in usual sterile fashion Needle Size: 22 G Approach: Superior lateral Ultrasound guided: No Medications: 80 mg triamcinolone 40 mg/mL; 6 mL BUPivacaine HCl 0.25 % (2.5 mg/mL) Patient tolerance: Patient tolerated the procedure well with no immediate complications us Prakash Barajas MD IN CLINIC/BEDSIDE ORDERAB LES Final Result from Last 3 Months Insurance MEDICARE [facility] Address: [facility] [address] [place] [address] [facility] FOR LIFE MEDICARE [facility] Address: [address] [address] [place] [address] Care Teams Millwright Supervisor Relationship Specialty Start Date End Date Nydia Barros MD PCP - General Nurse Practitioner 07/28/24
--- OUTSIDE RECORDS SUMMARY | 2025-07-25 17:39 | XMS_ITS | Encounter Summary ---
Author Organization [facility] Address [address] [facility] [place] [address] Care Team Providers Care Brim Stiffener Name Role Phone Marina Velez MD Primary Care Provider + [phone] Nydia Barros APR[facility] Primary Care Provi jones Encounter Details Date Type Department Care Team (Late st Contact Info) Description 10/15/2019 Telephone [facility] [address] [place] [address] Angie Cai DO [address] [place] [address] Social History Tobacco Use Types Packs/Day Years Used Date Smoking Tobacco: Never Smokeless Tobacco: Never Alcohol Use Standard Drinks/Week Comments Yes 0 (1 standard drink = 0.6 oz pur e alcohol) Comments Unknown Sex and Gender Information Value Date Recorded Sex Assigned at Not on file Legal Sex Female 5:40 PM ONLINE MARKETING STRATEGIST Gender Identity Not on file Sexual Orientation [...] be mailed to patient. Angie Cai DO [facility] Dermatology Resident, PGY-2 NE MARKETING STRATEGIST documented in this encounter Plan of Treatment Upcoming Encounters Date Type Department Care Team (Late st Contact Info) Description 08/12/2025 7:00 AM CDT Appointment [facility] ECHO [address] [place] [address] Quiana Minor MD [address] [facility] 2L [place] [phone] 08/12/2025 8:00 AM CDT Appointment [facility] PFT [address] [place] [phone] Quiana Minor MD [address] [facility] [address] [place] [phone] 11/14/2025 1:20 PM ONLINE MARKETING STRATEGIST Office Visit [facility] - Rheumatology [address] [place] [phone] Quiana Minor MD [address] [place] [address] [address] [place] [address] documented as of this encounter Visit Diagnoses Not on filedocumented in this encounter Care Teams Brim Stiffener Relationship Specialty Start Date End Date Marina Velez MD [address] [facility] [address] [place] [address] PCP - General 05/07/19 09/05/22 Nydia Barros APRN-RECLAMATION KETTLE TENDER [address] [place] [address] PCP - General 09/06/22 documented as of this encounter
--- OUTSIDE RECORDS SUMMARY | 2025-07-25 17:39 | XMS_ITS | Clinical Summary ---
Author Organization [facility] Address [address] [facility] [place] [address] Care Team Providers Care End Frazer Name Role Phone Nydia Barros APRN-AMMONIA DISTILLER Primary Care Provi jones Source Comments [facility],non-owned Affiliates and Associated Physician Practices is amultiple site organization consisting of ambulatory clinics and hospital sitesin [place], [place], [place] and [place]. This disclosure is being madepursuant to the Care Everywhere program and may not contain all information available regarding this patient. Last updated 18.[facility] Allergies Active Allergy Reactions Criticality Noted Date Comments Constantin Inhibitors Other Low 09/06/2022 Causes Eczema to flair up. Stop per dermatology Amoxicillin-Pot Clavulanate Diarrhea High 10/25/2024 Recent episode of C-Diff after Augmentin use given in ER Atropine Other Low 07/18/2014 Fever; reaction as child Medications * This document contains information received from the source organization and may not represent a complete record from that organization. * Be aware that medications may not be up to date on this document. Alwaysverify current medications with the patient. triamcinolone acetonide (KENALOG) 0.1 % cream Apply 1 drop to affected area 2 times daily 2 Active tacrolimus (Protopic) 0.1 % ointmentIndicati ons:Rash and other nonspecific skin eruption Apply to face two times daily as need for rash. 30 days supply. 60 g 3 2 Active donepezil (Aricept) 10 MG tabletIndication s:Polyarthralgia ,Other fatigue,Myalgia, Memory changes,Encounte r for screening for other viral diseases Take 1 (one) tablet by mouth once daily 4 10/20/20 25 Active Dupilumab (Dupixent) 300 MG/2ML SOPNIndications: Polyarthralgia,O ther fatigue,Myalgia, Memory changes,Encounte r for screening for other viral diseases 4 Active Active Problems Problem Noted Date Diagnosed [...] nevus 06/16/2014 Unequal leg length (acquired) 10/05/2012 Encounters Date Type Department Care Team Description 05/09/2025 1:40 PM CDT Office Visit [facility] - Rheumatology [address] [place] [address] Quiana Minor MD Anti-PRESS CUTTER antibodies present (Primary Dx); Polyarthralgia; Memory changes; Nonspecific abnormal results of liver function study from Last 3 Months Family History Medical History Relation Name Comments [...] drink = 0.6 oz pur e alcohol) OCC Comments Unknown Sex and Gender Information Value Date Recorded Sex Assigned at Not on file Legal Sex Female 5:40 PM ZINC CHLORIDE OPERATOR Gender Identity Not on file Sexual Orientation Not on file Last Filed Vital Signs Vital Sign Reading Time Taken Comments Blood Pressure 119/82 05/09/2025 1:47 PM CDT Pulse 124 05/09/2025 1:47 PM CDT Temperature 36.4 C (97.5 F) 04/04/2025 8:16 AM CDT Respiratory Rate - - Oxygen Saturation 98% 05/09/2025 1:47 PM CDT Inhaled Oxygen Concentration - - Weight 49.2 kg (108 lb 6.4 oz) 05/09/2025 1:47 P M CDT Height 160 cm (5' 3) 05/09/2025 1:47 PM CDT Body Mass Index 19.2 05/09/2025 1:47 PM CDT Plan of Treatment Upcoming Encounters Date Type Department Care Team (Late st Contact Info) Description 08/12/2025 7:00 AM CDT Appointment [facility] ECHO [address] [place] [phone] Quiana Minor MD [address] [place] [address] [address]L [place] [address] 08/12/2025 8:00 AM CDT Appointment [facility] PFT [address] [place] [phone] Quiana Minor MD [address] [place] [address] [address]L [place] [phone] 11/14/2025 1:20 PM ZINC CHLORIDE OPERATOR Office Visit [facility] - Rheumatology [address] [place] [phone] [place] [address] [place] [address] [address] [place] [phone] Health Maintenance Due Date Last Done Comments BONE DENSITY TESTING 1960 COLOGUARD (AGES 45-75) - COLON CA SCREENING 1959 CT COLONOGRAPHY - COLON CA SCREENING 1959 FIT - COLON CA SCREENING 1959 FLEX SIG - COLON CA SCREENING 1959 LIPID TESTING 1960 MEDICARE AWV 12 MONTHS 1959 DTAP/TDAP/TD VACCINES (1 - Tdap) 1978 PNEUMOCOCCAL VACCINE 50+ (1 of 1 - PCV) 2009 ZOSTER VACCINE (1 of 2) 2009 Respiratory Syncytial Virus (RSV) Vaccine Pt: or over 60 yrs (1 - Risk 60-74 years 1-dose series) 2019 MAMMOGRAM 02/08/2023 02/08/2021, 01/22, 12/27/2019, Additional history exists COVID-19 VACCINE ( season) 2024 11/22/2022, 06/16/2022, 11/15/2021 DEPRESSION SCREENING 11/24/2024 INFLUENZA VACCINE (#1) 2025 , 09/04/2023, 11/15/2021, Additional history exists COLON MONITORING 02/22/2035 02/22/2025 COLONOSCOPY - COLON CA SCREENING 02/22/2035 02/22/2025 Colorectal Cancer Screening 02/22/2035 HEPATITIS C SCREENING Completed 09/06/2022 HEPATITIS B [...] on patient's age to complete this topic Insurance MEDICARE [facility] MEDICARE Care Teams End Frazer Relationship Specialty Start Date End Date Nydia Barros APRN-AMMONIA DISTILLER [address] [place] [address] PCP - General 09/06/22
--- OUTSIDE RECORDS SUMMARY | 2025-07-25 17:39 | XMS_ITS | Encounter Summary ---
Author Organization [facility] Address [facility] [place] [address] Care Team Providers Care Carton Stenciler Name Role Phone Nydia Barros NP Primary Care Provider [phone] Encounter Details Date Type Department Care Team (Late Contact Info) Description 07/22/2024 Right Skills Message Enc [facility] Medical [facility] Multispecialty Care - [address], [address] [place] [address] [place] Goldelizabeth, [facility] Provider Results Social History Tobacco Use Types [...] Sex Assigned at Female 12/16/2024 3:00 PM TEXTILE MACHINE OPERATOR Legal Sex Female 7:44 PM CDT Gender Identity Female 12/16/2024 3:00 PM TEXTILE MACHINE OPERATOR Sexual Orientation Not on file documented as of this encounter Plan of Treatment Upcoming Encounters Date Type Department Care Team (Late Contact Info) Description 08/04/2025 10:20 AM CDT Allied Health/Nurse Visit [facility] Medical [facility] Family Medicine - [place] [address] [facility] [address] [place], [place] [address] Nydia Barros NP [address] [place] [address] 11/14/2025 10:40 AM TEXTILE MACHINE OPERATOR Office Visit [facility] Group Family Medicine - [place] [address] [facility] [address] [place] [address] Nydia Barros NP [address] [place] [phone] documented as of this encounter Visit Diagnoses Not on filedocumented in this encounter Additional Health Concerns Assessment Noted Time PHQ-9 Depression Total Score: 4 07/08/20 24 1:35 PM CDT documented as of this encounter Care Teams Carton Stenciler Relationship Specialty Start Date End Date Nydia Barros NP [address] [place] [address] PCP - General NURSE PRACTITIONER 05/10/21 documented as of this encounter
--- OUTSIDE RECORDS SUMMARY | 2025-07-25 17:39 | XMS_ITS | Encounter Summary ---
Author Organization [facility] Address [facility] [place] [address] Care Team Providers Care Skein Spooler Name Role Phone Nydia Barros NP Primary Care Provider [phone] Encounter Details Date Type Department Care Team (Late st Contact Info) Description 06/09/2025 Studio SBV Message Enc [facility] Medicine [facility] [address] [facility] [address] [place] [address] [facility] Provider results. Social History Tobacco Use Types Packs/Day Years [...] Sex Assigned at Female 12/16/2024 3:00 PM INTERMEDIATE DESIGNER Legal Sex Female 7:44 PM CDT Gender Identity Female 12/16/2024 3:00 PM INTERMEDIATE DESIGNER Sexual Orientation Not on file documented as of this encounter Plan of Treatment Upcoming Encounters Date Type Department Care Team (Late st Contact Info) Description 08/04/2025 10:20 AM CDT Allied Health/Nurse Visit [facility] [address] [facility] [address] [place] [address] Nydia Barros NP [address] [place] [address] 11/14/2025 10:40 AM INTERMEDIATE DESIGNER Office Visit [facility] Family Medicine - [place] [address] [facility] [address] [place] [address] Nydia Barros NP [address] [place] [address] [place] [address] documented as of this encounter Visit Diagnoses Not on filedocumented in this encounter Additional Health Concerns Assessment Noted Time PHQ-9 Depression Total Score: 6 05/17/20 25 12:45 PM CDT documented as of this encounter Care Teams Skein Spooler Relationship Specialty Start Date End Date Nydia Barros NP [address] [place] [address] [place] [address] PCP - General NURSE PRACTITIONER 05/10/21 documented as of this encounter
--- OUTSIDE RECORDS SUMMARY | 2025-07-25 17:39 | XMS_ITS | Encounter Summary ---
Author Organization [facility] Address [facility] access [facility] [place] [address] Care Team Providers Care Ham Clerk Name Role Phone Nydia Barros NP Primary Care Provider [phone] Encounter Details Date Type Department Care Team (Late st Contact Info) Description 10/26/2024 Therapy Plan [facility] Physical Therapy [address] [place] [address] Bella Keenan, PT [place], [place] [address] Social History Tobacco Use Types Packs/Day Years [...] Sex Assigned at Female 12/16/2024 3:00 PM WELDING MACHINE ASSEMBLER Legal Sex Female 7:44 PM CDT Gender Identity Female 12/16/2024 3:00 PM WELDING MACHINE ASSEMBLER Sexual Orientation Not on file documented as of this encounter Plan of Treatment Upcoming Encounters Date Type Department Care Team (Late st Contact Info) Description 08/04/2025 10:20 AM CDT Allied Health/Nurse Visit [facility] Family Medicine - [place] [address] [place] [address] Nydia Barros NP [address] [place], [place] [id number] 11/14/2025 10:40 AM WELDING MACHINE ASSEMBLER Office Visit [facility] Family Medicine - [place] [address] [place] [address] Nydia Barros NP [address] [place] [address] documented as of this encounter Visit Diagnoses Not on filedocumented in this encounter Additional Health Concerns Assessment Noted Time PHQ-9 Depression Total Score: 4 07/08/20 24 1:35 PM CDT documented as of this encounter Care Teams Ham Clerk Relationship Specialty Start Date End Date Nydia Barros NP [address] [place] [address] PCP - General NURSE PRACTITIONER 05/10/21 documented as of this encounter
--- OUTSIDE RECORDS SUMMARY | 2025-07-25 17:39 | XMS_ITS | Encounter Summary ---
Author Organization [facility] Address [facility]ly [facility] [place] [address] Care Team Providers Care Forestry Technician Name Role Phone Nydia Barros ROVING DEPARTMENT END FINDER Primary Care Provider [phone] Encounter Details Date Type Department Care Team (Latest Contact Info) Description 03/16/2025 Bitcast Message [facility]ventional [place] [address] [id number] [place] Provider Pain Management Referral Social History Tobacco Use Types Packs/Day Years Used Date Smoking Tobacco: Never Passive Smoke Exposure: Never Smokeless Tobacco: Never Comments:Have not used tobac co Alcohol Use Standard Drinks/Week Comments Yes 8.3 (1 standard drink = 0.6 oz p ure alcohol) daily wine consumption PHQ-2 Answer Date Recorded Patient Health Questionnaire-2 Score 0 12/16/2024 Comments No Sex and Gender Information Value Date Recorded Sex Assigned at Female 12/16/2024 3:00 PM ETL PROGRAMMER Legal Sex Female 7:44 PM CDT Gender Identity Female 12/16/2024 3:00 PM ETL PROGRAMMER Sexual Orientation Not on file documented as of this encounter Plan of Treatment Upcoming Encounters Date Type Department Care Team (Late st Contact Info) Description 08/04/2025 10:20 AM CDT Allied Health/Nurse Visit [facility] Family Medicine - [place] [address] [facility] [address] [place], [place] [address] Nydia Barros NP [address] [place], [place] [address] 11/14/2025 10:40 AM ETL PROGRAMMER Office Visit [facility] Family Medicine - [place] [address] [facility] [address] [place] [address] Nydia Barros NP [address] [place] [address] documented as of this encounter Visit Diagnoses Not on filedocumented in this encounter Additional Health Concerns Assessment Noted Time PHQ-9 Depression Total Score: 4 07/08/20 24 1:35 PM CDT documented as of this encounter Care Teams Forestry Technician Relationship Specialty Start Date End Date Nydia Barros NP [address] [place] [address] PCP - General NURSE PRACTITIONER 05/10/21 documented as of this encounter
[2025-07-25] MEDS: POTASSIUM CHLORIDE 20 MEQ ER TABLET 40 MEQ PO (17:42)
[2025-07-25] MEDS: KCL 20 MEQ/SW 100 ML 100 ML 50 MEQ IVPB (17:43)
[2025-07-25 17:48] LABS: Cannabinoid Screen Urine Negative (Negative)
[2025-07-25 18:09] LABS: Creatine Kinase 36 U/L (30-135)
--- NOTE | 2025-07-25 19:12 | PC.NURSE ---
BSSR received from MUSA Liu. Pt resting in bed with family at bedside. No requests at this time. Call light within reach.
--- NOTE | 2025-07-25 19:55 | PM.IMHP ---
H&P: HPI History of Present Illness Date/Time: 07/25/25 19:55 Chief Complaint: Confused, found on the floor Narrative: 65-year-old female with a medical history of dementia, alcohol use and essential hypertension who presented to the ER from home via EMS after being found confused and down on the floor. Family reports the patient has known dementia and is usually alert orient times 2-3 in able to recognize her children. Her children report that her memory had been worsening over the last several weeks. Her had been her primary caregiver. The patient's neighbors noticed that the door to the house was opened they tried to call the patient's and could not get a hold of him so they called the family. When EMS arrived at the home they found the patient's in the bathroom. The family had last talked to the patient's at 21:00. They found the patient on the floor with an open bottle of ibuprofen on her lap in multiple pill bottles with random pills scattered throughout the house. The patient was wearing an eye patch and eye guard and 2 pairs of eyeglasses. Even though she was wearing 2 sets of glasses she repetitively kept asking where her glasses were. She thought that her was ?where the kids and adults play?. When asked what today's date is the patient repetitively was stating her per date. The patient's family reports the patient likes to drink wine. The exact amount the patient drinks is unclear but she did have a ER visit in 2022 at which time she had an alcohol level of over 300. When asked where she is the patient stated that she was looking ? for somewhere conduit cleaner to stay?. She tells me that she is 61 years old. She cannot recall how many children she has. She cannot recall with can of work she used to do. On and external medication records the patient had previously been on Aricept for dementia last fall. It is not been refilled since that time. Review of Systems Review of Systems: Unobtainable due to dementia. [facility] Past Medical History Medical History Chronic hyponatremia Dementia Hypertension Anxiety Eczema Surgical History Surgical History History of bilateral hip replacements Family History Family History Mother Cervical cancer Macular degeneration Diabetes type 1, controlled Social History Social History (Updated 07/26/25 @ 01:03 by Liza Roque DO) Social History: 07/25/2025. Code status: Full code. Surrogate decision maker: Children Smoking status: Never smoker Second hand tobacco smoke exposure: Yes Alcohol intake: current Drinks per week: 10 Substance use: never Lack of Transportation: No Lack of Food: Never True Current Housing: I Have Housing Concerned About Future Housing: No Difficulty Paying Gas/Electric Bills: No Difficulty Paying for Meds: No Currently Unemployed: No Education: Bachelor's Degree Difficulty w/ Childcare or Family Care: No Spiritual care concerns: No Meds Home Medications and Allergies Home Medications ?Medication ?Instructions ?Recorded ?Confirmed ?Type dupilumab 300 mg/2 mL subcutaneous mg subcut 09/15/24 History pen injector ([employer]) fluoxetine 10 mg tablet 10 mg PO DAILY 07/25/25 07/25/25 History ondansetron HCl 4 mg tablet 4 mg PO Q6H 07/25/25 07/25/25 History pantoprazole 40 mg tablet,delayed 40 mg PO DAILY 07/25/25 07/25/25 History release Allergies Allergy/AdvReac Type Severity Reaction Status Date / Time hydrochlorothiazide Allergy Intermediate Other Verified 07/25/25 21:05 hydrocodone Allergy Hallucinati Verified 07/25/25 21:05 ng atropine AdvReac Intermediate Fever Verified 07/25/25 21:05 Vital Signs Vital Signs - 24 hr 07/25/25 16:45 07/25/25 16:49 07/25/25 17:01 Temperature 97.6 F Pulse Rate 89 86 85 Respiratory Rate 18 14 17 Blood Pressure 114/81 114/81 119/83 Pulse Oximetry 100 100 100 Oxygen Delivery Room Air 07/25/25 17:28 07/25/25 17:30 07/25/25 17:30 Temperature Pulse Rate 83 79 82 Respiratory Rate 18 14 Blood Pressure 110/80 117/80 Pulse Oximetry 100 100 Oxygen Delivery 07/25/25 18:00 Temperature Pulse Rate 88 Respiratory Rate 16 Blood Pressure 128/86 Pulse Oximetry 100 Oxygen Delivery Exam Narrative: Weight 48.2 kg BMI 18.2 Const: Other: No acute distress, thin body habitus, appears older than stated age HENMT: Other: Head is normocephalic atraumatic, mucous membranes are tacky, no oral pharyngeal erythema Eyes: Other: Opacification of the conjunctiva of the right eye unable to further evaluate the globe, left pupil is briskly reactive to light, no scleral icterus noted Neck: Other: No JVD, no lymphadenopathy Resp: Other: Clear to auscultation bilaterally, no increased work of breathing Cardio: Other: Regular rate, regular rhythm, 2+ bilateral radial and pedal pulses GI: Other: Soft, nontender, nondistended, normoactive bowel sounds Skin: Other: Mild pallor, non jaundice Neuro: Other: Alert oriented to self only she can spell or 1st and last name, she does not know her location, the month or the year, she can only intermittently provide her burred date, but she is otherwise conversational within no localizing deficits she is able to sit up in bed unassisted in moves about freely, sensation intact Extrem: Other: No clubbing, cyanosis or edema, equal strength in bilateral upper and lower extremities Psych: Other: Poor judgment and insight, impulsive, eligible responses to questions H&P: Results Labs Labs: Laboratory Tests 07/25/25 17:03 07/25/25 17:03 07/25/25 07/25/25 07/25/25 17:03 17:23 20:35 WBC 6.1 RBC 3.70 L Hgb 12.9 Hct 37.1 MCV 100.3 H MCH 34.9 H MCHC 34.8 RDW 14.5 Plt Count 247 MPV 9.8 Immature Gran % (Auto) 0.3 Neut % (Auto) 68.2 Lymph % (Auto) 17.8 L Kay % (Auto) 12.9 H Eos % (Auto) 0.3 Baso % (Auto) 0.5 Lymph # (Auto) 1.08 Kay # (Auto) 0.8 H Eos # (Auto) 0.0 Baso # (Auto) 0.0 Abs Immat Gran (auto) 0.02 Absolute Neuts (auto) 4.1 Absolute Nucleated RBC 0.000 Nucleated RBC % 0.0 PT 12.7 INR 1.0 APTT 26.3 Sodium 126 L Potassium 2.8 L* Chloride 93 L Carbon Dioxide 30 Anion Gap 3 L BUN 5 L Creatinine 0.43 L Estim Creat Clear Calc 80 Estimated GFR > 60 Glucose 97 POC Capillary Glucose 92 Lactic Acid 2.0 Calcium 8.6 Phosphorus 1.6 L Magnesium 1.4 L Total Bilirubin 1.2 AST 47 H ALT 40 H Alkaline Phosphatase 97 Total Creatine Kinase 36 Troponin I < 0.012 Total Protein 5.1 L Albumin 3.0 L Vitamin B12 Pending Folate Pending Urine Color Yellow Urine Appearance Cloudy H Urine pH 8.0 Ur Specific [place] 1.005 Urine Protein Negative Urine Glucose (UA) Negative Urine Ketones Negative Ur Blood (Man) Negative Urine Nitrate Negative Urine Bilirubin Negative Urine Urobilinogen 1.0 Leukocyte Esterase Rfl Negative Urine RBC 0-2 Urine WBC 0-5 Ur Squamous Epith Cells None seen Urine Bacteria None seen Urine Casts 0-2 Salicylates < 1.0 L Urine Opiates Screen Negative Urine Methadone Screen Negative Acetaminophen < 10 L Ur Barbiturates Screen Negative Ur Phencyclidine Scrn Negative Ur Amphetamine Screen Negative U Benzodiazepines Scrn Negative Urine Cocaine Screen Negative U Cannabinoids Screen Negative Ethyl Alcohol < [address] 07/25/25 17:24 IMPRESSION: 1. No acute intracranial process. 2. Moderate diffuse cerebral volume loss which is disproportionate for age with mild scattered white matter hypoattenuation consistent with chronic small vessel ischemic disease. Chest X-Ray 07/25/25 17:31 IMPRESSION: 1. No acute cardiopulmonary disease. Assessment and Plan Assessment and plan (1) Encephalopathy acute: Code(s): G93.40 - Encephalopathy, unspecified Status: Acute (2) Dementia: Qualifiers: Alzheimer's disease onset: early onset Dementia behavioral or psychological symptom: unspecified whether behavioral, psychotic, or mood disturbance or anxiety Dementia severity: severe Dementia type: Alzheimer's Qualified Code(s): G30.0 - Alzheimer's disease with early onset; F02.C0 - Dementia in other diseases classified elsewhere, severe, without behavioral disturbance, psychotic disturbance, mood disturbance, and anxiety Code(s): F03.90 - Unspecified dementia, unspecified severity, without behavioral disturbance, psychotic disturbance, mood disturbance, and anxiety Status: Acute (3) Alcohol use disorder: Code(s): F10.90 - Alcohol use, unspecified, uncomplicated Status: Acute (4) Acute hyponatremia: Code(s): E87.1 - Hypo-osmolality and hyponatremia Status: Acute (5) Elevated MCV: Code(s): R71.8 - Other abnormality of red blood cells Status: Acute (6) Hypomagnesemia: Code(s): E83.42 - Hypomagnesemia Status: Acute (7) Acute hypokalemia: Code(s): E87.6 - Hypokalemia Status: Acute (8) Hypophosphatemia: Code(s): E83.39 - Other disorders of phosphorus metabolism Status: Acute (9) Protein calorie malnutrition: Qualifiers: Protein-calorie malnutrition severity: severe Qualified Code(s): E43 - Unspecified severe protein-calorie malnutrition Code(s): E46 - Unspecified protein-calorie malnutrition Status: Acute (10) Fall: Qualifiers: Encounter type: initial encounter Qualified Code(s): W19.XXXA - Unspecified fall, initial encounter Code(s): W19.XXXA - Unspecified fall, initial encounter Status: Acute Plan The patient presents with acute increasing confusion in the setting of chronic dementia. Is unclear if this is progression of her dementia or if there may be some component of acute encephalopathy or delirium. The patient does have worsening hyponatremia from her baseline chronic low-sodium which could precipitate encephalopathy. She also has a history of heavy alcohol use in the past with her alcohol level during a prior admission being as high as 343. Recurrent alcohol level is less than 10. Possible patient could be an alcoholic drawl but does not have tremors tachycardia are diaphoresis to suggest acute withdrawal. Will place patient on IV fluid hydration and monitor sodiums closely to avoid rapid correction. Do will place on CIWA protocol with Librium as needed. Will provide 1 dose of IV thiamin [address] patient on thiamin p.o. as well as folic acid and multivitamin. Will check TSH to rule out component of hypothyroidism that could precipitate hyponatremia and encephalopathic state. The patient also could of taken an overdose of her medications but she does not fit any particular toxidrome in her tox screen is negative although there is no specific test for the medications patient has access to which at least from her med rec includes fluoxetine and the [id number] ibuprofen she was found with. She does not have any evidence of acidosis on electrolyte panel but will monitor labs closely. Patient had multiple electrolyte derangements in has received 40 mEq of p.o. potassium chloride 40 mEq of IV potassium chloride and now as hypo magnesemia and hypophosphatemia for which I have replaced with 4 g magnesium sulfate rider and 40 millimoles of potassium phosphate. Will monitor electrolyte panel closely. Patient will be monitored on telemetry. EKG was personally reviewed interpreted and was normal sinus rhythm with low-voltage in precordial leads probable old anterior MA with left axis deviation and rate of 81 Patient has an elevated MCV during her last hospitalization her B12 level was lower limit of normal. Would not be surprised if patient had B12 deficiency. Although elevated MCV could be due to chronic alcohol use as well. Will check B12 and folic acid level. Patient does have elevated transaminases but this it appears to be somewhat chronic and fits with pattern consistent with alcohol use. Patient has had a she is 6 kg weight loss since February of this year. She meets criteria for severe protein calorie malnutrition. Last nurse to keep track of calorie count Will consult dietitian for nutritional supplement recommendations. Physical therapy and occupational therapy have been consulted for evaluation of disposition recommendations and given the patient's history of falling. Patient been placed on fall precautions. Care coordination has been consulted the patient is likely going to need placement in Memory Care. Patient has been admitted as observation status. MEDICAL DECISION MAKING NARRATIVE -Spoke with the ED provider in detail regarding patient's evaluation, workup and management -Patient seen and examined at bedside -Collaborated with patient's nurse at the bedside in detail and addressed all concerns -Labs, electrolytes, radiology, investigations and test results personally reviewed and interpreted unless otherwise specified -ED/Consult/Nursing/Ancilliary notes on the chart reviewed and appreciated -Spoke with patient at bedside and diagnosis and plan of care was discussed. All questions answered. Quality VTE Prophylaxis VTE prophylaxis: mechanical ordered (SCDs) Hospitalist MIPS Advance Care Plan I have confirmed that the patient's Advanced Care Plan is present, code status is documented, or surrogate decision maker is listed in patient medical record.: Yes Medication Reconciliation I have utilized all available resources to obtain, update and review the patients current medications (includes all prescriptions, OTC, herbals, cannabis, and nutritional supplements).: Yes
[2025-07-25 19:59] LABS: Magnesium 1.4 mg/dL (1.6-2.3)
[2025-07-25] MEDS: THIAMINE 500 MG/NS 100 ML 500 MG/100 ML BAG 200 MG IVPB (20:15)
[2025-07-25 21:13] LABS: Vitamin B12 764.0 pg/mL (239-931)
--- NOTE | 2025-07-25 21:27 | ADMGEN ---
This patient, Brenna Mendosa, was admitted to 2 Medical Room 256-. Patient/family oriented to hospital policies and general routines including ID bracelet, bed and alarms, visiting hours, pain management, procedures, bathroom and other care routines, personal items, smoking policy, room service/diet, and visiting hours. Information on how to activate the Rapid Response Team has been discussed. Patient/Family are encouraged to report perceived risks to care and to ask questions if they do not understand what they are told or what they should do.
[2025-07-25 21:28] LABS: Thyroid Stimulating Hormone Reflex 1.370 uIU/mL (0.465-4.68)
[2025-07-25] MEDS: MAGNESIUM SULF 4 GM/WATER100ML 4 GM/100 ML BAG IVPB (21:30)
[2025-07-26] VITALS (9 sets, daily range): BP systolic 90–108; BP diastolic 55–74; PULSE 72–80; RESP 14–16; TEMP 36.3–36.4; O2SAT 98–100; BMI 16.9
[2025-07-26 00:14] LABS: Ammonia < 9 umol/L (9-30)
[2025-07-26 00:17] LABS: Anion Gap 2 mmol/L (4-12); Blood Urea Nitrogen 4 mg/dL (7-17); Calcium 8.4 mg/dL (8.4-10.2); Carbon Dioxide 29 mmol/L (22-30); Chloride 96 mmol/L (98-107); Estimated CRCL calculation 76 ml/min; Estimated Glomerular Filt Rate > 60; Glucose 130 mg/dL (65-110); Potassium 3.2 mmol/L (3.4-5.0); Sodium 127 mmol/L (137-145)
[2025-07-26] MEDS: POTASSIUM PHOS,M-BASIC-D-BASIC 40 MMOL in SODIUM CHLORIDE 0.9% IV 250 ML 43.89 MMOL IVPB (00:50)
[2025-07-26] MEDS: DEXTROSE 5%/0.9% SOD CHL 1,000 ML 100 ML IV CONT ×2 (00:50→16:30)
[2025-07-26 05:13] LABS: Alanine Aminotransferase 34 U/L (6-35); Albumin Level 2.6 g/dL (3.5-5.1); Alkaline Phosphatase 90 U/L (38-126); Anion Gap 5 mmol/L (4-12); Aspartate Amino Transferase 38 U/L (14-36); Bilirubin,Total 0.9 mg/dL (0.2-1.3); Blood Urea Nitrogen 4 mg/dL (7-17); Calcium 7.8 mg/dL (8.4-10.2); Carbon Dioxide 26 mmol/L (22-30); Chloride 97 mmol/L (98-107); Estimated CRCL calculation 79 ml/min; Estimated Glomerular Filt Rate > 60; Glucose 93 mg/dL (65-110); Potassium 3.8 mmol/L (3.4-5.0); Sodium 128 mmol/L (137-145); Total Protein 4.7 g/dL (6.3-8.2)
--- NOTE | 2025-07-26 07:10 | P.PNIM_ITS ---
Progress Note: A&P Assessment and Plan (1) Encephalopathy acute: Code(s): G93.40 - Encephalopathy, unspecified Status: Acute Assessment and Plan: * Presenting with increased acute confusion with underlying chronic dementia diagnosis * Unclear whether or not secondary factors influencing mentation or if worsening of dementia * History of alcohol abuse, however outflow alcohol level is less than 10 * No evidence of alcohol withdrawal at this time: No tremors, tachycardia or diaphoresis * Possible medication overdose - found with bottle of Ibuprofen along with multiple multiple pill bottles with random pills scattered throughout the house * Multiple electrolyte imbalances * CIWA protocol, 1 time dose IV thiamin 500mg, po thiamin + folic acid * Tox screen (-) * Head CT: No acute intracranial process. Moderate diffuse cerebral volume loss which is disproportionate for age with mild scattered white matter hypoattenuation consistent with chronic small vessel ischemic disease. * Chest XR: No acute cardiopulmonary disease * UA: not indicative of infection * Psych consult regarding possible medication overdose * Neuro consult regarding AMS/possible worsening dementia * Monitor daily labs (2) Electrolyte imbalance: Code(s): E87.8 - Other disorders of electrolyte and fluid balance, not elsewhere classified Status: Acute Assessment and Plan: * ED Workup: Na 126, K 2.8, Phosphorus 1.6, Magnesium 1.4 * Received 40 mEq of p.o. potassium chloride 40 mEq of IV potassium chloride * 4 g magnesium sulfate rider and 40 millimoles of potassium phosphate * Monitor daily labs closely * Telemetry * 07/26: Na 128, K 3.8 * Repeat Mg, Phosphorus daily (3) Fall: Qualifiers: Encounter type: initial encounter Qualified Code(s): W19.XXXA - Unspecified fall, initial encounter Code(s): W19.XXXA - Unspecified fall, initial encounter Status: Acute Assessment and Plan: * Likely 2/2 to underlying dementia, r/o underlying infection * Head CT: Negative for acute findings * Fall precautions * PT/OT evaluation (4) Dementia: Qualifiers: Alzheimer's disease onset: early onset Dementia behavioral or psychological symptom: unspecified whether behavioral, psychotic, or mood disturbance or anxiety Dementia severity: severe Dementia type: Alzheimer's Qualified Code(s): G30.0 - Alzheimer's disease with early onset; F02.C0 - Dementia in other diseases classified elsewhere, severe, without behavioral disturbance, psychotic disturbance, mood disturbance, and anxiety Code(s): F03.90 - Unspecified dementia, unspecified severity, without behavioral disturbance, psychotic disturbance, mood disturbance, and anxiety Status: Acute Assessment and Plan: * Underlying dementia diagnosis * No medication to reconcile * Neurology consult (5) Elevated MCV: Code(s): R71.8 - Other abnormality of red blood cells Status: Acute Assessment and Plan: * Upon arrival to ED: MCV 100.3 * Upon chart review, baseline MCV appears to be in 106-108 range * 07/26: MCV 103.8 * Vit B12, folic acid rechecked - wnl (6) Protein calorie malnutrition: Qualifiers: Protein-calorie malnutrition severity: severe Qualified Code(s): E43 - Unspecified severe protein-calorie malnutrition Code(s): E46 - Unspecified protein-calorie malnutrition Status: Acute Assessment and Plan: * Adhesive Bandage Making Operator consulted Subjective Date/time seen: 07/26/25 07:10 Interval history: 65-year-old female with dementia who presents the ER with a possible worsening of her mental status. She was found at her home sitting on the ground with her above ibuprofen her lap. . 07/26/2025 Patient sitting comfortably in bed at time of exam. Remains A&Ox1, without any complaints or concerns at this time. Pleasantly confused. Hyponatremic (appears chronic) but no other major electrolyte abnormalities. Will order psych consult for possible medication overdose. Neuro consult regarding AMS/ worsening dementia. Review of Systems Review of Systems: Unobtainable due to dementia. Exam Narrative: Weight 48.2 kg BMI 18.2 Const: Other: No acute distress, thin body habitus, appears older than stated age HENMT: Other: Head is normocephalic atraumatic, mucous membranes are tacky, no oral pharyngeal erythema Eyes: Other: Opacification of the conjunctiva of the right eye unable to further evaluate the globe, left pupil is briskly reactive to light, no scleral icterus noted Neck: Other: No JVD, no lymphadenopathy Resp: Other: Clear to auscultation bilaterally, no increased work of breathing Cardio: Other: Regular rate, regular rhythm, 2+ bilateral radial and pedal pulses GI: Other: Soft, nontender, nondistended, normoactive bowel sounds Skin: Other: Mild pallor, non jaundice Neuro: Other: Alert oriented to self only she can spell or 1st and last name, she does not know her location, the month or the year, she can only intermittently provide her burred date, but she is otherwise conversational within no localizing deficits she is able to sit up in bed unassisted in moves about freely, sensation intact Extrem: Other: No clubbing, cyanosis or edema, equal strength in bilateral upper and lower extremities Psych: Other: Poor judgment and insight, impulsive, eligible responses to questions Objective Data Vital Signs Vital Signs: Vital Signs - 24 hr 07/25/25 16:45 07/25/25 16:49 07/25/25 17:01 Temperature 97.6 F Pulse Rate 89 86 85 Respiratory Rate 18 14 17 Blood Pressure 114/81 114/81 119/83 Pulse Oximetry 100 100 100 Oxygen Delivery Room Air 07/25/25 17:28 07/25/25 17:30 07/25/25 17:30 Temperature Pulse Rate 83 79 82 Respiratory Rate 18 14 Blood Pressure 110/80 117/80 Pulse Oximetry 100 100 Oxygen Delivery 07/25/25 18:00 07/25/25 19:30 07/25/25 21:11 Temperature 97.9 F Pulse Rate 88 78 76 Respiratory Rate 16 13 16 Blood Pressure 128/86 109/73 103/77 Pulse Oximetry 100 97 100 Oxygen Delivery 07/25/25 21:11 07/25/25 21:44 07/26/25 00:00 Temperature Pulse Rate 75 74 Respiratory Rate Blood Pressure Pulse Oximetry Oxygen Delivery Room Air 07/26/25 04:00 07/26/25 05:03 Temperature 97.3 F L Pulse Rate 80 75 Respiratory Rate 16 Blood Pressure 108/74 Pulse Oximetry 100 Oxygen Delivery Intake/Output Intake/Output: Intake & Output 07/23/25 07/24/25 07/25/25 07/26/25 23:59 23:59 23:59 23:59 Intake Total 100 300 Output Total 80 Balance 20 300 Meds/Results Medications: Active Medications Generic Name Dose Route Start Last Admin Trade Name Freq PRN Reason Stop Dose Admin Acetaminophen 650 mg 07/25/25 19:42 Acetaminophen 325 Mg Tablet PO Q4H PRN Mild Pain (1-3) or Fever Chlordiazepoxide HCl 25 mg 07/25/25 19:51 Chlordiazepoxide (*Crx) 25 Mg Capsule PO Q6H PRN Withdrawal Fluoxetine HCl 10 mg 07/26/25 09:00 Fluoxetine Hcl 10 Mg Capsule PO DAILY [facility] Folic Acid 1 mg 07/26/25 09:00 Folic Acid 1 Mg Tablet PO DAILY [facility] Dextrose/Sodium Chloride 1,000 mls @ 100 mls/hr 07/25/25 20:25 07/26/25 00:50 Dextrose 5% Sodium Chloride 0.9% IV CONT 100 mls/hr .Q10H [facility] Administration Multivitamins/Calcium 1 tablet 07/26/25 09:00 Therapeutic Multivitamins/Minerals Tab (*Bkc) PO DAILY [facility] Ondansetron HCl 4 mg 07/25/25 19:42 Ondansetron Inj 4 Mg/2 Ml Vial IV PUSH Q4H PRN Nausea Pantoprazole Sodium 40 mg 07/26/25 09:00 Pantoprazole 40 Mg Tablet PO DAILY [facility] Thiamine HCl 100 mg 07/26/25 09:00 Thiamine Hcl 100 Mg Tablet PO QAM [facility] Radiology Results: ITS Impressions Head CT 07/25/25 17:24 IMPRESSION: 1. No acute intracranial process. 2. Moderate diffuse cerebral volume loss which is disproportionate for age with mild scattered white matter hypoattenuation consistent with chronic small vessel ischemic disease. Chest X-Ray 07/25/25 17:31 IMPRESSION: 1. No acute cardiopulmonary disease. Labs Labs: Laboratory Results - last 24 hr 07/25/25 07/25/25 07/25/25 17:03 17:23 20:35 WBC 6.1 RBC 3.70 L Hgb 12.9 Hct 37.1 MCV 100.3 H MCH 34.9 H MCHC 34.8 RDW 14.5 Plt Count 247 MPV 9.8 Immature Gran % (Auto) 0.3 Neut % (Auto) 68.2 Lymph % (Auto) 17.8 L [place] % (Auto) 12.9 H Eos % (Auto) 0.3 Baso % (Auto) 0.5 Lymph # (Auto) 1.08 [place] # (Auto) 0.8 H Eos # (Auto) 0.0 Baso # (Auto) 0.0 Abs Immat Gran (auto) 0.02 Absolute Neuts (auto) 4.1 Absolute Nucleated RBC 0.000 Nucleated RBC % 0.0 PT 12.7 INR 1.0 APTT 26.3 Sodium 126 L Potassium 2.8 L* Chloride 93 L Carbon Dioxide 30 Anion Gap 3 L BUN 5 L Creatinine 0.43 L Estim Creat Clear Calc 80 Estimated GFR > 60 Glucose 97 POC Capillary Glucose 92 Lactic Acid 2.0 Calcium 8.6 Phosphorus 1.6 L Magnesium 1.4 L Total Bilirubin 1.2 AST 47 H ALT 40 H Alkaline Phosphatase 97 Ammonia Total Creatine Kinase 36 Troponin I < 0.012 Total Protein 5.1 L Albumin 3.0 L Vitamin B12 764.0 Folate 4.3 TSH (Reflex) 1.370 Urine Color Yellow Urine Appearance Cloudy H Urine pH 8.0 Ur Specific [place] 1.005 Urine Protein Negative Urine Glucose (UA) Negative Urine Ketones Negative Ur Blood (Man) Negative Urine Nitrate Negative Urine Bilirubin Negative Urine Urobilinogen 1.0 Leukocyte Esterase Rfl Negative Urine RBC 0-2 Urine WBC 0-5 Ur Squamous Epith Cells None seen Urine Bacteria None seen Urine Casts 0-2 Salicylates < 1.0 L Urine Opiates Screen Negative Urine Methadone Screen Negative Acetaminophen < 10 L Ur Barbiturates Screen Negative Ur Phencyclidine Scrn Negative Ur Amphetamine Screen Negative U Benzodiazepines Scrn Negative Urine Cocaine Screen Negative U Cannabinoids Screen Negative Ethyl Alcohol < 10 07/25/25 07/25/25 07/26/25 23:47 23:48 00:40 WBC RBC Hgb Hct MCV MCH MCHC RDW Plt Count MPV Immature Gran % (Auto) Neut % (Auto) Lymph % (Auto) [place] % (Auto) Eos % (Auto) Baso % (Auto) Lymph # (Auto) [place] # (Auto) Eos # (Auto) Baso # (Auto) Abs Immat Gran (auto) Absolute Neuts (auto) Absolute Nucleated RBC Nucleated RBC % PT INR APTT Sodium 127 L Potassium 3.2 L Chloride 96 L Carbon Dioxide 29 Anion Gap 2 L BUN 4 L Creatinine 0.42 L Estim Creat Clear Calc 76 Estimated GFR > 60 Glucose 130 H POC Capillary Glucose 122 H Lactic Acid Calcium 8.4 Phosphorus Magnesium Total Bilirubin AST ALT Alkaline Phosphatase Ammonia < 9 L Total Creatine Kinase Troponin I Total Protein Albumin Vitamin B12 Folate TSH (Reflex) Urine Color Urine Appearance Urine pH Ur Specific [place] Urine Protein Urine Glucose (UA) Urine Ketones Ur Blood (Man) Urine Nitrate Urine Bilirubin Urine Urobilinogen Leukocyte Esterase Rfl Urine RBC Urine WBC Ur Squamous Epith Cells Urine Bacteria Urine Casts Salicylates Urine Opiates Screen Urine Methadone Screen Acetaminophen Ur Barbiturates Screen Ur Phencyclidine Scrn Ur Amphetamine Screen U Benzodiazepines Scrn Urine Cocaine Screen U Cannabinoids Screen Ethyl Alcohol 07/26/25 07/26/25 04:26 06:18 WBC RBC Hgb Hct MCV MCH MCHC RDW Plt Count MPV Immature Gran % (Auto) Neut % (Auto) Lymph % (Auto) [place] % (Auto) Eos % (Auto) Baso % (Auto) Lymph # (Auto) [place] # (Auto) Eos # (Auto) Baso # (Auto) Abs Immat Gran (auto) Absolute Neuts (auto) Absolute Nucleated RBC Nucleated RBC % PT INR APTT Sodium 128 L Potassium 3.8 Chloride 97 L Carbon Dioxide 26 Anion Gap 5 BUN 4 L Creatinine 0.40 L Estim Creat Clear Calc 79 Estimated GFR > 60 Glucose 93 POC Capillary Glucose 82 Lactic Acid Calcium 7.8 L Phosphorus Magnesium Total Bilirubin 0.9 AST 38 H ALT 34 Alkaline Phosphatase 90 Ammonia Total Creatine Kinase Troponin I Total Protein 4.7 L Albumin 2.6 L Vitamin B12 Folate TSH (Reflex) Urine Color Urine Appearance Urine pH Ur Specific [place] Urine Protein Urine Glucose (UA) Urine Ketones Ur Blood (Man) Urine Nitrate Urine Bilirubin Urine Urobilinogen Leukocyte Esterase Rfl Urine RBC Urine WBC Ur Squamous Epith Cells Urine Bacteria Urine Casts Salicylates Urine Opiates Screen Urine Methadone Screen Acetaminophen Ur Barbiturates Screen Ur Phencyclidine Scrn Ur Amphetamine Screen U Benzodiazepines Scrn Urine Cocaine Screen U Cannabinoids Screen Ethyl Alcohol Quality VTE Prophylaxis VTE prophylaxis: mechanical ordered (SCDs)
[2025-07-26 07:14] LABS: Hematocrit 35.5 % (37.0-47.0); Hemoglobin 12.1 g/dL (12.0-15.0); Immature Granulocyte Percent A 0.6 % (0-0.5); Lymphocytes Absolute Auto 0.71 K/mm3 (0.9-3.2); Mean Corpuscular HGB Conc 34.1 g/dl (32-36); Mean Corpuscular Hemoglobin 35.4 pg (26-34); Mean Corpuscular Volume 103.8 fl (80-100); Nucleated Red Blood Cells Absolute Auto 0.000 K/mm3 (0.0-0.012); Nucleated Red Blood Cells Perc 0.0 % (0.0-0.2); Platelet Count Result 233 k/mm3 (150-375); Red Blood Count 3.42 M/mm3 (4.2-5.4); White Blood Count 3.5 K/mm3 (4.5-10.0)
[2025-07-26] MEDS: FOLIC ACID 1 MG TABLET PO (08:05)
[2025-07-26] MEDS: THIAMINE HCL 100 MG TABLET PO (08:05)
[2025-07-26] MEDS: THERAPEUTIC MULTIVITAMINS/MINERALS TAB (*BKC) 1 TABLET PO (08:05)
[2025-07-26] MEDS: PANTOPRAZOLE 40 MG TABLET PO (08:06)
--- NOTE | 2025-07-26 12:23 | WPDCNPSYCH ---
Assessment and Plan Assessment and plan (1) Dementia: Code(s): F03.90 - Unspecified dementia, unspecified severity, without behavioral disturbance, psychotic disturbance, mood disturbance, and anxiety Status: Acute (2) Alcohol use disorder: Code(s): F10.90 - Alcohol use, unspecified, uncomplicated Status: Acute Plan Patient case reviewed and information gathered largely from her children at bedside. Low suspicion for intentional suicide attempt given current circumstances, likely confusion and unsupervised as had been found and he managed her medications and care given her dementia. She is not an imminent risk of harm to herself or others, I do not recommend inpatient behavioral health admission. She would likely benefit from neurology service input for dementia, rule out Korsakoff syndrome due to chronic alcohol use. Continue fluoxetine 10mg daily- home medication. HPI Data of Consult Date/Time: 07/26/25 12:24 Requesting Physician: Liza Roque DO Primary Care Provider: Nydia Barros, COMPLIANCE ATTORNEY Consult Narrative Narrative: Brenna Mendosa is a 65 year old female admitted to the hospital 07/25 due to altered mental status. She was reportedly found in her home who she shared with her , who was found in the home. Family has last seen her and her around 9pm on Friday. Brenna has a notable history of dementia and alcohol use disorder. She was found in altered state apparently with open bottles of pills, so psychiatry was subsequently consulted for possible intentional medication overdose. Alcohol and drug screens on admission were negative. Upon exam, Brenna is oriented to self only. Appears to confabulate when answering questions although pleasant during conversation. Daughter and son are at bedside and provide much of the information obtained. They report her memory has continued to deteriorate over the past several years. Her was her primary caregiver and managed her medical needs and medications in the home. Per family, her current mental status is near her baseline. They suspect a possible history of depression shortly after she lost her cat, which caused situational sadness. Although, no known history of depression treatment, however home medications list fluoxetine 10mg. She did follow with a neurologist outpatient for her dementia, although they are unsure of clinic. No known history of the patient making suicidal threats or history of suicide attempts in the past. Family does support reported history of alcohol use, about 4-5 glasses of wine a day they are away of. Her late was also a heavy drinker, which they report enabled her habits. Review of Systems Psychiatric: Psychiatric: Reports confusion and Reports memory loss [facility] Past Medical History Medical History Chronic hyponatremia Dementia Hypertension Anxiety Eczema Surgical History Surgical History History of bilateral hip replacements Family History Family History Mother Cervical cancer Macular degeneration Diabetes type 1, controlled Social History Social History (Updated 07/26/25 @ 01:03 by Liza Roque DO) Social History: 07/25/2025. Code status: Full code. Surrogate decision maker: Children Smoking status: Never smoker Second hand tobacco smoke exposure: Yes Alcohol intake: current Drinks per week: 10 Substance use: never Lack of Transportation: No Lack of Food: Never True Current Housing: I Have Housing Concerned About Future Housing: No Difficulty Paying Gas/Electric Bills: No Difficulty Paying for Meds: No Currently Unemployed: No Education: Bachelor's Degree Difficulty w/ Childcare or Family Care: No Spiritual care concerns: No Meds Home Medications and Allergies Home Medications ?Medication ?Instructions ?Recorded ?Confirmed ?Type dupilumab 300 mg/2 mL subcutaneous mg subcut 09/15/24 History pen injector (Dupixent) fluoxetine 10 mg tablet 10 mg PO DAILY 07/25/25 07/25/25 History ondansetron HCl 4 mg tablet 4 mg PO Q6H 07/25/25 07/25/25 History pantoprazole 40 mg tablet,delayed 40 mg PO DAILY 07/25/25 07/25/25 History release Allergies Allergy/AdvReac Type Severity Reaction Status Date / Time hydrochlorothiazide Allergy Intermediate Other Verified 07/25/25 21:05 hydrocodone Allergy Hallucinati Verified 07/25/25 21:05 ng atropine AdvReac Intermediate Fever Verified 07/25/25 21:05 Vital Signs Vital Signs - 24 hr 07/25/25 16:45 07/25/25 16:49 07/25/25 17:01 Temperature 97.6 F Pulse Rate 89 86 85 Respiratory Rate 18 14 17 Blood Pressure 114/81 114/81 119/83 Pulse Oximetry 100 100 100 Oxygen Delivery Room Air 07/25/25 17:28 07/25/25 17:30 07/25/25 17:30 Temperature Pulse Rate 83 79 82 Respiratory Rate 18 14 Blood Pressure 110/80 117/80 Pulse Oximetry 100 100 Oxygen Delivery 07/25/25 18:00 07/25/25 19:30 07/25/25 21:11 Temperature 97.9 F Pulse Rate 88 78 76 Respiratory Rate 16 13 16 Blood Pressure 128/86 109/73 103/77 Pulse Oximetry 100 97 100 Oxygen Delivery 07/25/25 21:11 07/25/25 21:44 07/26/25 00:00 Temperature Pulse Rate 75 74 Respiratory Rate Blood Pressure Pulse Oximetry Oxygen Delivery Room Air 07/26/25 04:00 07/26/25 05:03 07/26/25 08:00 Temperature 97.3 F L Pulse Rate 80 75 Respiratory Rate 16 Blood Pressure 108/74 Pulse Oximetry 100 Oxygen Delivery Room Air 07/26/25 08:00 07/26/25 12:00 Temperature Pulse Rate 80 80 Respiratory Rate Blood Pressure Pulse Oximetry Oxygen Delivery Exam Psych: Appearance: grossly normal Mental Status: other (A/O x 1 (self)) Speech and movement: Normal speech and movement present Affect: normal affect Attitude: cooperative Thought process: Confabulating thought process present Insight: Poor insight present (Psych) Judgement: Poor judgement present (Psych) Results Labs 07/26/25 04:25 07/26/25 04:26 Labs: Short CBC 07/25/25 07/26/25 Range/Units 17:03 04:25 WBC 6.1 3.5 L (4.5-10.0) K/mm3 Hgb 12.9 12.1 (12.0-15.0) g/dL Hct 37.1 35.5 L (37.0-47.0) % Plt Count 247 233 (150-375) k/mm3 BMP 07/25/25 07/25/25 07/26/25 17:03 23:48 04:26 Sodium 126 L 127 L 128 L Potassium 2.8 L* 3.2 L 3.8 Chloride 93 L 96 L 97 L Carbon Dioxide 30 29 26 BUN 5 L 4 L 4 L Creatinine 0.43 L 0.42 L 0.40 L Glucose 97 130 H 93 Calcium 8.6 8.4 7.8 L Cardiac Enzymes 07/25/25 Range/Units 17:03 Total Creatine Kinase 36 (30-135) U/L Troponin I < 0.012 (0.000-0.034) ng/mL Liver Function 07/25/25 07/26/25 Range/Units 17:03 04:26 Total Bilirubin 1.2 0.9 (0.2-1.3) mg/dL AST 47 H 38 H (14-36) U/L ALT 40 H 34 (6-35) U/L Alkaline Phosphatase 97 90 (38-126) U/L Albumin 3.0 L 2.6 L (3.5-5.1) g/dL Urine 07/25/25 Range/Units 17:23 Urine Color Yellow (Yellow) Urine Appearance Cloudy H (Clear) Urine pH 8.0 (5.0-9.0) Ur Specific [place] 1.005 (1.001-1.035) Urine Protein Negative (Negative) mg/dL Urine Glucose (UA) Negative (Negative) mg/dL
[2025-07-26 14:24] LABS: Magnesium 2.6 mg/dL (1.6-2.3)
--- NOTE | 2025-07-26 14:33 | WPDNEURCNPN ---
Assessment and Plan Assessment and plan (1) Dementia: Code(s): F03.90 - Unspecified dementia, unspecified severity, without behavioral disturbance, psychotic disturbance, mood disturbance, and anxiety Status: Acute (2) Encephalopathy acute: Code(s): G93.40 - Encephalopathy, unspecified Status: Acute (3) Alcohol use disorder: Code(s): F10.90 - Alcohol use, unspecified, uncomplicated Status: Acute Plan 1. Dementia of most likely Alzheimer's type could have been aggravated by the alcohol use disorder, 2. Multiple electrolyte disorder . Plan is to re-evaluate completely, the CT scan has documented no intracranial bleed if possible MRI can be obtained for long-term recommendation particularly with the of her at this particular time. Consult date: 07/26/25 HPI: Brenna Mendosa is a 65 year old female Admitted to the hospital through the emergency room for the complaints of worsening of her mental status. She was found at her home sitting on the ground with some medication in her lap and some medication to turn across the room. She was only oriented to self. She had no idea why she was on the ground. She was wearing 2 pair of glasses and eye shield, and eye patch and she was also unsure how she got to the hospital. she is cared for by her who has not been contacted since 9:00 p.m. last night and was unfortunately found to have up stairs in the bathroom in their home and patient herself was unaware of that. Patient has been taking medications such as fluoxetine 10mg daily, pantoprazole 40mg daily, and dupixent injections subcu. she been documented to allergic to be atropine , hydrocodone and hydrochlorothiazide. She carries the diagnosis of 1. Dementia 2. Hypertension 3. Anxiety 4. Hyponatremia on chronic basis. she has history of alcohol 7 drinks per week, subsequently it has been documented on the floor that she does carry the diagnosis of dementia and alcohol use disorder. She is usually alert oriented to times and recognize her children, her has been her primary caregiver it was also mentioned that patient's neighbor noted the door was open and they could not contact her , the was found on the floor with an open bottle of ibuprofen on his lap. on initial contact even though she was wearing 2 sets of glasses she kept asking where her glasses were. And kept making the statement that her was with the kids and adults plate. On initial eval in the emergency room her vital signs were normal CBC was normal, BMP was abnormal with sodium 126 and potassium 2.8, mast scan was normal, drug screen was negative, alcohol level was less than 10, CT scan of the head was negative for the bleed or hydrocephalus, though it was compatible with cerebral volume loss with scattered white matter hypoattenuation, chest x-ray was negative, PMF Past Medical History Medical History Chronic hyponatremia Dementia Hypertension Anxiety Eczema Surgical History Surgical History History of bilateral hip replacements Family History Family History Mother Cervical cancer Macular degeneration Diabetes type 1, controlled Social History Social History Social History: 07/25/2025. Code status: Full code. Surrogate decision maker: Children Smoking status: Never smoker Second hand tobacco smoke exposure: Yes Alcohol intake: current Drinks per week: 10 Substance use: never Lack of Transportation: No Lack of Food: Never True Current Housing: I Have Housing Concerned About Future Housing: No Difficulty Paying Gas/Electric Bills: No Difficulty Paying for Meds: No Currently Unemployed: No Education: Bachelor's Degree Difficulty w/ Childcare or Family Care: No Spiritual care concerns: No Meds Home Medications and Allergies Home Medications ?Medication ?Instructions ?Recorded ?Confirmed ?Type dupilumab 300 mg/2 mL subcutaneous mg subcut 09/15/24 History pen injector (Dupixent) fluoxetine 10 mg tablet 10 mg PO DAILY 07/25/25 07/25/25 History ondansetron HCl 4 mg tablet 4 mg PO Q6H 07/25/25 07/25/25 History pantoprazole 40 mg tablet,delayed 40 mg PO DAILY 07/25/25 07/25/25 History release Allergies Allergy/AdvReac Type Severity Reaction Status Date / Time hydrochlorothiazide Allergy Intermediate Other Verified 07/25/25 21:05 hydrocodone Allergy Hallucinati Verified 07/25/25 21:05 ng atropine AdvReac Intermediate Fever Verified 07/25/25 21:05 Vital Signs Vital Signs - 24 hr 07/25/25 16:45 07/25/25 16:49 07/25/25 17:01 Temperature 36.4 C Pulse Rate 89 86 85 Respiratory Rate 18 14 17 Blood Pressure 114/81 114/81 119/83 Pulse Oximetry 100 100 100 Oxygen Delivery Room Air 07/25/25 17:28 07/25/25 17:30 07/25/25 17:30 Temperature Pulse Rate 83 79 82 Respiratory Rate 18 14 Blood Pressure 110/80 117/80 Pulse Oximetry 100 100 Oxygen Delivery 07/25/25 18:00 07/25/25 19:30 07/25/25 21:11 Temperature 36.6 C Pulse Rate 88 78 76 Respiratory Rate 16 13 16 Blood Pressure 128/86 109/73 103/77 Pulse Oximetry 100 97 100 Oxygen Delivery 07/25/25 21:11 07/25/25 21:44 07/26/25 00:00 Temperature Pulse Rate 75 74 Respiratory Rate Blood Pressure Pulse Oximetry Oxygen Delivery Room Air 07/26/25 04:00 07/26/25 05:03 07/26/25 08:00 Temperature 36.3 C L Pulse Rate 80 75 Respiratory Rate 16 Blood Pressure 108/74 Pulse Oximetry 100 Oxygen Delivery Room Air 07/26/25 08:00 07/26/25 12:00 Temperature Pulse Rate 80 80 Respiratory Rate Blood Pressure Pulse Oximetry Oxygen Delivery Exam Narrative: on examination today she was awake alert and cooperative, she had obvious redness of her right eye, head was normocephalic with no cranial bruits, ear nose throat examination was normal, neck was supple with no cervical bruits no thyromegaly and no lymphadenopathy, heart was regular with no murmur, lungs were clear to auscultation, abdomen soft with normal bowel sounds, neurologically she was awake alert receptive to the examination and follow the instruction fairly well, her speech was not dysarthric but she had difficulties in carrying out a conversation, he follow the instruction appropriately, extraocular movements were spontaneously full with no nystagmus facial sensation was intact face was symmetrical on carrying out a conversation and tongue was in midline, motor examination revealed her to have fairly normal symmetrical strength, with no increased tone or spasticity or cogwheeling, deep tendon reflexes are 1+ symmetrical and plantar responses were downgoing she was able to approach different objects without any ataxia or dysmetria, Results Labs 07/26/25 04:25 07/26/25 04:26 Labs: Short CBC 07/25/25 07/26/25 Range/Units 17:03 04:25 WBC 6.1 3.5 L (4.5-10.0) K/mm3 Hgb 12.9 12.1 (12.0-15.0) g/dL Hct 37.1 35.5 L (37.0-47.0) % Plt Count 247 233 (150-375) k/mm3 BMP 07/25/25 07/25/25 07/26/25 17:03 23:48 04:26 Sodium 126 L 127 L 128 L Potassium 2.8 L* 3.2 L 3.8 Chloride 93 L 96 L 97 L Carbon Dioxide 30 29 26 BUN 5 L 4 L 4 L Creatinine 0.43 L 0.42 L 0.40 L Glucose 97 130 H 93 Calcium 8.6 8.4 7.8 L Cardiac Enzymes 07/25/25 Range/Units 17:03 Total Creatine Kinase 36 (30-135) U/L Troponin I < 0.012 (0.000-0.034) ng/mL Liver Function 07/25/25 07/26/25 Range/Units 17:03 04:26 Total Bilirubin 1.2 0.9 (0.2-1.3) mg/dL AST 47 H 38 H (14-36) U/L ALT 40 H 34 (6-35) U/L Alkaline Phosphatase 97 90 (38-126) U/L Albumin 3.0 L 2.6 L (3.5-5.1) g/dL Urine 07/25/25 Range/Units 17:23 Urine Color Yellow (Yellow) Urine Appearance Cloudy H (Clear) Urine pH 8.0 (5.0-9.0) Ur Specific [place] 1.005 (1.001-1.035) Urine Protein Negative (Negative) mg/dL Urine Glucose (UA) Negative (Negative) mg/dL
[2025-07-27] VITALS (11 sets, daily range): BP systolic 100–114; BP diastolic 62–68; PULSE 71–92; RESP 14–16; TEMP 36.4–37.3; O2SAT 100
[2025-07-27] MEDS: DEXTROSE 5%/0.9% SOD CHL 1,000 ML 100 ML IV CONT ×3 (02:02→16:57)
[2025-07-27 04:31] LABS: Hematocrit 31.5 % (37.0-47.0); Hemoglobin 10.5 g/dL (12.0-15.0); Immature Granulocyte Percent A 0.3 % (0-0.5); Lymphocytes Absolute Auto 0.57 K/mm3 (0.9-3.2); Mean Corpuscular HGB Conc 33.3 g/dl (32-36); Mean Corpuscular Hemoglobin 35.2 pg (26-34); Mean Corpuscular Volume 105.7 fl (80-100); Nucleated Red Blood Cells Absolute Auto 0.000 K/mm3 (0.0-0.012); Nucleated Red Blood Cells Perc 0.0 % (0.0-0.2); Platelet Count Result 192 k/mm3 (150-375); Red Blood Count 2.98 M/mm3 (4.2-5.4); White Blood Count 3.0 K/mm3 (4.5-10.0)
[2025-07-27 04:50] LABS: Alanine Aminotransferase 27 U/L (6-35); Albumin Level 2.0 g/dL (3.5-5.1); Alkaline Phosphatase 104 U/L (38-126); Anion Gap -1 mmol/L (4-12); Aspartate Amino Transferase 31 U/L (14-36); Bilirubin,Total 0.5 mg/dL (0.2-1.3); Blood Urea Nitrogen 5 mg/dL (7-17); Calcium 7.6 mg/dL (8.4-10.2); Carbon Dioxide 26 mmol/L (22-30); Chloride 105 mmol/L (98-107); Estimated CRCL calculation 85 ml/min; Estimated Glomerular Filt Rate > 60; Glucose 101 mg/dL (65-110); Magnesium 2.1 mg/dL (1.6-2.3); Potassium 3.5 mmol/L (3.4-5.0); Sodium 130 mmol/L (137-145); Total Protein 3.9 g/dL (6.3-8.2)
[2025-07-27 05:07] LABS: Anisocytosis 1+; Macrocytosis 1+ (NORMAL); Schistocytes None Seen
--- NOTE | 2025-07-27 07:29 | P.PNIM_ITS ---
Progress Note: A&P Assessment and Plan (1) Encephalopathy acute: Code(s): G93.40 - Encephalopathy, unspecified Status: Acute Assessment and Plan: -Presenting with increased acute confusion with underlying chronic dementia diagnosis -Unclear whether or not secondary factors influencing mentation or if worsening of dementia -History of alcohol abuse, however admit alcohol level is less than 10 -No evidence of alcohol withdrawal at this time: No tremors, tachycardia or diaphoresis -Possible medication overdose - found with bottle of Ibuprofen along with multiple multiple pill bottles with random pills scattered throughout the house -Multiple electrolyte imbalances -CIWA protocol, 1 time dose IV thiamine 500mg, po thiamine + folic acid -Tox screen (-) -Head CT: No acute intracranial process. Moderate diffuse cerebral volume loss which is disproportionate for age with mild scattered white matter hypoattenuation consistent with chronic small vessel ischemic disease. -Chest XR: No acute cardiopulmonary disease -UA: not indicative of infection -Psych consult regarding possible medication overdose - low suspicion for intentional suicide attempt, suspect confusion led to accidental medication overdose -Neuro consult regarding AMS/possible worsening dementia - suspect dementia likely Alzheimer's type aggravated by alcohol use disorder and multiple electrolyte disturbances -Monitor daily labs (2) Electrolyte imbalance: Code(s): E87.8 - Other disorders of electrolyte and fluid balance, not elsewhere classified Status: Acute Assessment and Plan: -ED Workup: Na 126, K 2.8, Phosphorus 1.6, Magnesium 1.4 -received IV and PO replacement -07/27- K+ 3.5, Na 130 (improved) (3) Fall: Qualifiers: Encounter type: initial encounter Qualified Code(s): W19.XXXA - Unspecified fall, initial encounter Code(s): W19.XXXA - Unspecified fall, initial encounter Status: Acute Assessment and Plan: -Likely 2/2 to underlying dementia, r/o underlying infection -Head CT: Negative for acute findings -Fall precautions -PT/OT evaluation (4) Dementia: Qualifiers: Alzheimer's disease onset: early onset Dementia behavioral or psychological symptom: unspecified whether behavioral, psychotic, or mood disturbance or anxiety Dementia severity: severe Dementia type: Alzheimer's Qualified Code(s): G30.0 - Alzheimer's disease with early onset; F02.C0 - Dementia in other diseases classified elsewhere, severe, without behavioral disturbance, psychotic disturbance, mood disturbance, and anxiety Code(s): F03.90 - Unspecified dementia, unspecified severity, without behavioral disturbance, psychotic disturbance, mood disturbance, and anxiety Status: Acute Assessment and Plan: -Underlying dementia diagnosis -No medication to reconcile -Neurology consulted (5) Elevated MCV: Code(s): R71.8 - Other abnormality of red blood cells Status: Acute Assessment and Plan: -Upon arrival to ED: MCV 100.3 -Upon chart review, baseline MCV appears to be in 106-108 range -07/26: MCV 103.8 -Vit B12, folic acid rechecked - wn (6) Protein calorie malnutrition: Qualifiers: Protein-calorie malnutrition severity: severe Qualified Code(s): E43 - Unspecified severe protein-calorie malnutrition Code(s): E46 - Unspecified protein-calorie malnutrition Status: Acute Assessment and Plan: - dietitian consulted Plan DVT prophylaxis: Lovenox Disposition: likely SNF Subjective Date/time seen: 07/27/25 07:29 Interval history: 65-year-old female with dementia who presents the ER with a possible worsening of her mental status. She was found at her home sitting on the ground with her above ibuprofen her lap. . Patient seen and examined at bedside. She is still confused and reports poor appetite. Discussed plan with patient's son over the phone. Review of Systems Review of Systems: Unobtainable due to dementia. Exam Narrative: General: NAD Eyes: EOMI ENT: neck supple Cardiovascular: Regular rate and rhythm Respiratory: Clear to auscultation, respirations even and unlabored on RA Gastrointestinal: Soft, non tender Genitourinary: no suprapubic tenderness Musculoskeletal: No edema Skin: warm, dry Neuro: Alert and oriented x1. Strength 5/5 in BUE/BLEs. Psych: Mood appropriate Objective Data Vital Signs Vital Signs: Vital Signs - 24 hr 07/26/25 08:00 07/26/25 08:00 07/26/25 12:00 Temperature Pulse Rate 80 80 Respiratory Rate Blood Pressure Pulse Oximetry Oxygen Delivery Room Air 07/26/25 14:00 07/26/25 16:00 07/26/25 20:00 Temperature 97.6 F Pulse Rate 79 80 73 Respiratory Rate 14 14 Blood Pressure 101/67 Pulse Oximetry 100 100 Oxygen Delivery Room Air 07/26/25 20:00 07/26/25 23:38 07/27/25 00:00 Temperature 97.6 F Pulse Rate 74 72 71 Respiratory Rate 16 Blood Pressure 90/55 L Pulse Oximetry 98 Oxygen Delivery 07/27/25 04:00 07/27/25 05:41 Temperature 97.6 F Pulse Rate 72 73 Respiratory Rate 14 Blood Pressure 100/62 Pulse Oximetry 100 Oxygen Delivery Intake/Output Intake/Output: Intake & Output 07/24/25 07/25/25 07/26/25 07/27/25 23:59 23:59 23:59 23:59 Intake Total 100 2369 1153.3 Output Total 80 Balance 20 2369 1153.3 Meds/Results Medications: Active Medications Generic Name Dose Route Start Last Admin Trade Name Freq PRN Reason Stop Dose Admin Acetaminophen 650 mg 07/25/25 19:42 Acetaminophen 325 Mg Tablet PO Q4H PRN Mild Pain (1-3) or Fever Chlordiazepoxide HCl 25 mg 07/25/25 19:51 Chlordiazepoxide (*Crx) 25 Mg Capsule PO Q6H PRN Withdrawal Fluoxetine HCl 10 mg 07/26/25 09:00 07/26/25 08:05 Fluoxetine Hcl 10 Mg Capsule PO 10 mg DAILY MIL Administration Folic Acid 1 mg 07/26/25 09:00 07/26/25 08:05 Folic Acid 1 Mg Tablet PO 1 mg DAILY MIL Administration Dextrose/Sodium Chloride 1,000 mls @ 100 mls/hr 07/25/25 20:25 07/27/25 02:02 Dextrose 5% Sodium Chloride 0.9% IV CONT 100 mls/hr .Q10H MIL Administration Multivitamins/Calcium 1 tablet 07/26/25 09:00 07/26/25 08:05 Therapeutic Multivitamins/Minerals Tab (*Bkc) PO 1 tablet DAILY MIL Administration Ondansetron HCl 4 mg 07/25/25 19:42 Ondansetron Inj 4 Mg/2 Ml Vial IV PUSH Q4H PRN Nausea Pantoprazole Sodium 40 mg 07/26/25 09:00 07/26/25 08:06 Pantoprazole 40 Mg Tablet PO 40 mg DAILY MIL Administration Thiamine HCl 100 mg 07/26/25 09:00 07/26/25 08:05 Thiamine Hcl 100 Mg Tablet PO 100 mg QAM MIL Administration Radiology Results: ITS Impressions Head CT 07/25/25 17:24 IMPRESSION: 1. No acute intracranial process. 2. Moderate diffuse cerebral volume loss which is disproportionate for age with mild scattered white matter hypoattenuation consistent with chronic small vessel ischemic disease. Chest X-Ray 07/25/25 17:31 IMPRESSION: 1. No acute cardiopulmonary disease. Labs Labs: Laboratory Results - last 24 hr 07/26/25 07/26/25 07/26/25 04:26 11:44 16:54 WBC RBC Hgb Hct MCV MCH MCHC RDW Plt Count MPV Immature Gran % (Auto) Neut % (Auto) Lymph % (Auto) [place] % (Auto) Eos % (Auto) Baso % (Auto) Lymph # (Auto) [place] # (Auto) Eos # (Auto) Baso # (Auto) Abs Immat Gran (auto) Absolute Neuts (auto) Absolute Nucleated RBC Band Neutrophils % Nucleated RBC % Platelet Estimate Anisocytosis Macrocytosis Schistocytes Sodium Potassium Chloride Carbon Dioxide Anion Gap BUN Creatinine Estim Creat Clear Calc Estimated GFR Glucose POC Capillary Glucose 119 H 127 H Calcium Phosphorus 6.1 H Magnesium 2.6 H Total Bilirubin AST ALT Alkaline Phosphatase Total Protein Albumin 07/26/25 07/27/25 07/27/25 23:44 04:20 05:44 WBC 3.0 L RBC 2.98 L Hgb 10.5 L Hct 31.5 L MCV 105.7 H MCH 35.2 H MCHC 33.3 RDW 15.3 H Plt Count 192 MPV 9.7 Immature Gran % (Auto) 0.3 Neut % (Auto) 66.9 Lymph % (Auto) 19.1 [place] % (Auto) 12.4 H Eos % (Auto) 1.0 Baso % (Auto) 0.3 Lymph # (Auto) 0.57 L [place] # (Auto) 0.4 Eos # (Auto) 0.0 Baso # (Auto) 0.0 Abs Immat Gran (auto) 0.01 Absolute Neuts (auto) 2.0 Absolute Nucleated RBC 0.000 Band Neutrophils % Not Reportable Nucleated RBC % 0.0 Platelet Estimate Adequate Anisocytosis 1+ Macrocytosis 1+ Schistocytes None seen Sodium 130 L Potassium 3.5 Chloride 105 Carbon Dioxide 26 Anion Gap -1 L BUN 5 L Creatinine 0.37 L Estim Creat Clear Calc 85 Estimated GFR > 60 Glucose 101 POC Capillary Glucose 129 H 106 H Calcium 7.6 L Phosphorus Magnesium 2.1 Total Bilirubin 0.5 AST 31 ALT 27 Alkaline Phosphatase 104 Total Protein 3.9 L Albumin 2.0 L Quality VTE Prophylaxis VTE prophylaxis: mechanical ordered (SCDs)
[2025-07-27] MEDS: FOLIC ACID 1 MG TABLET PO (08:23)
[2025-07-27] MEDS: PANTOPRAZOLE 40 MG TABLET PO (08:23)
[2025-07-27] MEDS: THERAPEUTIC MULTIVITAMINS/MINERALS TAB (*BKC) 1 TABLET PO (08:23)
[2025-07-27] MEDS: THIAMINE HCL 100 MG TABLET PO (08:23)
[2025-07-27] MEDS: ENOXAPARIN 40 MG/0.4 ML SYRINGE SUB-Q (14:53)
[2025-07-28] VITALS (8 sets, daily range): BP systolic 118–135; BP diastolic 87–93; PULSE 66–90; RESP 14–16; TEMP 36.5–37.3; O2SAT 97–100
[2025-07-28] MEDS: DEXTROSE 5%/0.9% SOD CHL 1,000 ML 100 ML IV CONT (03:18)
[2025-07-28 04:57] LABS: Hematocrit 32.9 % (37.0-47.0); Hemoglobin 10.9 g/dL (12.0-15.0); Immature Granulocyte Percent A 0.3 % (0-0.5); Lymphocytes Absolute Auto 0.62 K/mm3 (0.9-3.2); Mean Corpuscular HGB Conc 33.1 g/dl (32-36); Mean Corpuscular Hemoglobin 34.6 pg (26-34); Mean Corpuscular Volume 104.4 fl (80-100); Nucleated Red Blood Cells Absolute Auto 0.000 K/mm3 (0.0-0.012); Nucleated Red Blood Cells Perc 0.0 % (0.0-0.2); Platelet Count Result 196 k/mm3 (150-375); Red Blood Count 3.15 M/mm3 (4.2-5.4); White Blood Count 3.3 K/mm3 (4.5-10.0)
[2025-07-28 05:14] LABS: Alanine Aminotransferase 27 U/L (6-35); Albumin Level 2.2 g/dL (3.5-5.1); Alkaline Phosphatase 116 U/L (38-126); Anion Gap 0 mmol/L (4-12); Aspartate Amino Transferase 40 U/L (14-36); Bilirubin,Total 0.5 mg/dL (0.2-1.3); Blood Urea Nitrogen 4 mg/dL (7-17); Calcium 7.6 mg/dL (8.4-10.2); Carbon Dioxide 26 mmol/L (22-30); Chloride 104 mmol/L (98-107); Estimated CRCL calculation 93 ml/min; Estimated Glomerular Filt Rate > 60; Glucose 99 mg/dL (65-110); Magnesium 1.7 mg/dL (1.6-2.3); Potassium 3.3 mmol/L (3.4-5.0); Sodium 130 mmol/L (137-145); Total Protein 4.2 g/dL (6.3-8.2)
--- NOTE | 2025-07-28 07:31 | P.PNIM_ITS ---
Progress Note: A&P Assessment and Plan (1) Encephalopathy acute: Code(s): G93.40 - Encephalopathy, unspecified Status: Acute Assessment and Plan: -Presenting with increased acute confusion with underlying chronic dementia diagnosis -Unclear whether or not secondary factors influencing mentation or if worsening of dementia -History of alcohol abuse, however admit alcohol level is less than 10 -No evidence of alcohol withdrawal at this time: No tremors, tachycardia or diaphoresis -Possible medication overdose - found with bottle of Ibuprofen along with multiple multiple pill bottles with random pills scattered throughout the house -Multiple electrolyte imbalances -CIWA protocol, 1 time dose IV thiamine 500mg, po thiamine + folic acid -Tox screen (-) -Head CT: No acute intracranial process. Moderate diffuse cerebral volume loss which is disproportionate for age with mild scattered white matter hypoattenuation consistent with chronic small vessel ischemic disease. -Chest XR: No acute cardiopulmonary disease -UA: not indicative of infection -Psych consult regarding possible medication overdose - low suspicion for intentional suicide attempt, suspect confusion led to accidental medication overdose -Neuro consult regarding AMS/possible worsening dementia - suspect dementia likely Alzheimer's type aggravated by alcohol use disorder and multiple electrolyte disturbances -Monitor daily labs - patient remains confused. Plan for memory care on discharge. (2) Electrolyte imbalance: Code(s): E87.8 - Other disorders of electrolyte and fluid balance, not elsewhere classified Status: Acute Assessment and Plan: -ED Workup: Na 126, K 2.8, Phosphorus 1.6, Magnesium 1.4 -received IV and PO replacement -07/28- K+ 3.3, replacement ordered. Na 130. Poor PO intake noted. Dietitian consulted. (3) Fall: Qualifiers: Encounter type: initial encounter Qualified Code(s): W19.XXXA - Unspecified fall, initial encounter Code(s): W19.XXXA - Unspecified fall, initial encounter Status: Acute Assessment and Plan: -Likely 2/2 to underlying dementia -Head CT: Negative for acute findings -Fall precautions -planning for memory care on discharge (4) Dementia: Qualifiers: Alzheimer's disease onset: early onset Dementia behavioral or psychological symptom: unspecified whether behavioral, psychotic, or mood disturbance or anxiety Dementia severity: severe Dementia type: Alzheimer's Qualified Code(s): G30.0 - Alzheimer's disease with early onset; F02.C0 - Dementia in other diseases classified elsewhere, severe, without behavioral disturbance, psychotic disturbance, mood disturbance, and anxiety Code(s): F03.90 - Unspecified dementia, unspecified severity, without behavioral disturbance, psychotic disturbance, mood disturbance, and anxiety Status: Acute Assessment and Plan: -Underlying dementia diagnosis -No medication to reconcile -Neurology consulted - suspect Alzheimer's dementia. May consider MRI brain as outpatient. Will need formal dementia evaluation as outpatient. (5) Elevated MCV: Code(s): R71.8 - Other abnormality of red blood cells Status: Acute Assessment and Plan: -Upon arrival to ED: MCV 100.3 -Upon chart review, baseline MCV appears to be in 106-108 range -07/26: MCV 103.8 -Vit B12, folic acid rechecked - wnl (6) Severe protein-calorie malnutrition: Code(s): E43 - Unspecified severe protein-calorie malnutrition Status: Acute Assessment and Plan: - dietitian following - continue PO supplements Plan DVT prophylaxis: Lovenox Disposition: memory care Subjective Date/time seen: 07/28/25 07:31 Interval history: 65-year-old female with dementia who presents the ER with a possible worsening of her mental status. Patient seen and examined up in chair with son at bedside. Denied acute complaints. Discussed plan of care with son. Review of Systems Review of Systems: Unobtainable due to dementia. Exam Narrative: General: NAD Eyes: EOMI ENT: neck supple Cardiovascular: Regular rate and rhythm Respiratory: Clear to auscultation, respirations even and unlabored on RA Gastrointestinal: Soft, non tender Genitourinary: no suprapubic tenderness Musculoskeletal: No edema Skin: warm, dry Neuro: Alert and oriented x1. Psych: Mood appropriate Objective Data Vital Signs Vital Signs: Vital Signs - 24 hr 07/27/25 08:00 07/27/25 09:42 07/27/25 12:00 Temperature Pulse Rate 74 81 Respiratory Rate Blood Pressure Pulse Oximetry 100 Oxygen Delivery Room Air 07/27/25 14:00 07/27/25 14:30 07/27/25 16:00 Temperature 99.2 F Pulse Rate 88 91 Respiratory Rate 14 Blood Pressure 114/67 Pulse Oximetry 100 Oxygen Delivery Room Air 07/27/25 20:21 07/27/25 20:25 07/27/25 23:55 Temperature 97.8 F Pulse Rate 88 92 72 Respiratory Rate 16 Blood Pressure 106/68 Pulse Oximetry 100 Oxygen Delivery 07/28/25 04:00 07/28/25 05:27 Temperature 97.7 F Pulse Rate 70 84 Respiratory Rate 16 Blood Pressure 135/89 Pulse Oximetry 100 Oxygen Delivery Intake/Output Intake/Output: Intake & Output 07/25/25 07/26/25 07/27/25 07/28/25 23:59 23:59 23:59 23:59 Intake Total 100 2369 4125.0 1200 Output Total 80 Balance 20 2369 4125.0 1200 Meds/Results Medications: Active Medications Generic Name Dose Route Start Last Admin Trade Name Freq PRN Reason Stop Dose Admin Acetaminophen 650 mg 07/25/25 19:42 Acetaminophen 325 Mg Tablet PO Q4H PRN Mild Pain (1-3) or Fever Chlordiazepoxide HCl 25 mg 07/25/25 19:51 Chlordiazepoxide (*Crx) 25 Mg Capsule PO Q6H PRN Withdrawal Enoxaparin Sodium 40 mg 07/27/25 14:10 07/27/25 14:53 Enoxaparin 40 Mg/0.4 Ml Syringe SUB-Q 40 mg DAILY MIL Administration Fluoxetine HCl 10 mg 07/26/25 09:00 07/27/25 08:23 Fluoxetine Hcl 10 Mg Capsule PO 10 mg DAILY MIL Administration Folic Acid 1 mg 07/26/25 09:00 07/27/25 08:23 Folic Acid 1 Mg Tablet PO 1 mg DAILY MIL Administration Dextrose/Sodium Chloride 1,000 mls @ 100 mls/hr 07/25/25 20:25 07/28/25 03:18 Dextrose 5% Sodium Chloride 0.9% IV CONT 100 mls/hr .Q10H MIL Administration Multivitamins/Calcium 1 tablet 07/26/25 09:00 07/27/25 08:23 Therapeutic Multivitamins/Minerals Tab (*Bkc) PO 1 tablet DAILY MIL Administration Ondansetron HCl 4 mg 07/25/25 19:42 Ondansetron Inj 4 Mg/2 Ml Vial IV PUSH Q4H PRN Nausea Pantoprazole Sodium 40 mg 07/26/25 09:00 07/27/25 08:23 Pantoprazole 40 Mg Tablet PO 40 mg DAILY MIL Administration Thiamine HCl 100 mg 07/26/25 09:00 07/27/25 08:23 Thiamine Hcl 100 Mg Tablet PO 100 mg QAM MIL Administration Radiology Results: ITS Impressions Head CT 07/25/25 17:24 IMPRESSION: 1. No acute intracranial process. 2. Moderate diffuse cerebral volume loss which is disproportionate for age with mild scattered white matter hypoattenuation consistent with chronic small vessel ischemic disease. Chest X-Ray 07/25/25 17:31 IMPRESSION: 1. No acute cardiopulmonary disease. Labs Labs: Laboratory Results - last 24 hr 07/27/25 07/27/25 07/28/25 11:39 16:29 04:06 WBC 3.3 L RBC 3.15 L Hgb 10.9 L Hct 32.9 L MCV 104.4 H MCH 34.6 H MCHC 33.1 RDW 15.1 H Plt Count 196 MPV 10.5 H Immature Gran % (Auto) 0.3 Neut % (Auto) 65.5 Lymph % (Auto) 18.6 [place] % (Auto) 13.5 H Eos % (Auto) 1.2 Baso % (Auto) 0.9 Lymph # (Auto) 0.62 L [place] # (Auto) 0.5 Eos # (Auto) 0.0 Baso # (Auto) 0.0 Abs Immat Gran (auto) 0.01 Absolute Neuts (auto) 2.2 Absolute Nucleated RBC 0.000 Nucleated RBC % 0.0 Sodium 130 L Potassium 3.3 L Chloride 104 Carbon Dioxide 26 Anion Gap 0 L BUN 4 L Creatinine 0.33 L Estim Creat Clear Calc 93 Estimated GFR > 60 Glucose 99 POC Capillary Glucose 119 H 112 H Calcium 7.6 L Magnesium 1.7 Total Bilirubin 0.5 AST 40 H ALT 27 Alkaline Phosphatase 116 Total Protein 4.2 L Albumin 2.2 L 07/28/25 05:25 WBC RBC Hgb Hct MCV MCH MCHC RDW Plt Count MPV Immature Gran % (Auto) Neut % (Auto) Lymph % (Auto) [place] % (Auto) Eos % (Auto) Baso % (Auto) Lymph # (Auto) [place] # (Auto) Eos # (Auto) Baso # (Auto) Abs Immat Gran (auto) Absolute Neuts (auto) Absolute Nucleated RBC Nucleated RBC % Sodium Potassium Chloride Carbon Dioxide Anion Gap BUN Creatinine Estim Creat Clear Calc Estimated GFR Glucose POC Capillary Glucose 107 H Calcium Magnesium Total Bilirubin AST ALT Alkaline Phosphatase Total Protein Albumin Quality VTE Prophylaxis VTE prophylaxis: mechanical ordered (SCDs)
[2025-07-28] MEDS: ENOXAPARIN 40 MG/0.4 ML SYRINGE SUB-Q (09:10)
[2025-07-28] MEDS: THIAMINE HCL 100 MG TABLET PO (09:11)
[2025-07-28] MEDS: THERAPEUTIC MULTIVITAMINS/MINERALS TAB (*BKC) 1 TABLET PO (09:11)
[2025-07-28] MEDS: FOLIC ACID 1 MG TABLET PO (09:11)
[2025-07-28] MEDS: PANTOPRAZOLE 40 MG TABLET PO (09:11)
--- NOTE | 2025-07-28 11:04 | PCNFU ---
Nutrition Follow-Up Complete: Severe protein calorie malnutrition related to loss of appetite, chronic dementia as evidenced by weight loss 17%/5 months, 21%/1 year; intakes <75% needs >1 month; severe muscle wasting and fat loss Goal: Improve PO intake at least 50% Patient is progressing towards goal. We will continue current goal. Pt current nutrition is Regular with diet supplements. Last recorded weight is 44.7 kg, no new weight to report. Bowel Motility: Last reported BM 07/28 Labs Reviewed:Cr 0.33, Na 133, Hct 32.9, Hgb 10.9 Meds Noted: Thiamine, Folic Acid, MVI, Protonix Skin: WNL Additional Notes: Patient currently on a calorie count. 07/26 intake approx 800 kcal (lunch and dinner tickets only) ,07/27 intake approx 286 kcal (lunch ticket only), 07/28 breakfast 470 kcal (breakfast ticket only). Patient is drinking diet supplement of Ensure Plus High Protein providing 350 kcal and 20 gm protein and added Nutritional Ice Cream on trays for additional 300 kcal and 9 gm protein. Oral intake is progressing. Monitoring intakes, labs, supplement tolerance, weights, output, meds, plan of care Follow up in 5 days
[2025-07-28] MEDS: PHENYLEPH/MINERAL OIL/PETROLAT OINTMENT 57 GM 1 APPLIC RECTAL (16:26)
[2025-07-28] MEDS: ACETAMINOPHEN 325 MG TABLET 650 MG PO (20:52)
[2025-07-29] MEDS: ONDANSETRON INJ 4 MG/2 ML VIAL IV PUSH (02:58)
[2025-07-29 05:02] LABS: Hematocrit 32.0 % (37.0-47.0); Hemoglobin 10.8 g/dL (12.0-15.0); Immature Granulocyte Percent A 0.6 % (0-0.5); Lymphocytes Absolute Auto 0.70 K/mm3 (0.9-3.2); Mean Corpuscular HGB Conc 33.8 g/dl (32-36); Mean Corpuscular Hemoglobin 35.2 pg (26-34); Mean Corpuscular Volume 104.2 fl (80-100); Nucleated Red Blood Cells Absolute Auto 0.000 K/mm3 (0.0-0.012); Nucleated Red Blood Cells Perc 0.0 % (0.0-0.2); Platelet Count Result 195 k/mm3 (150-375); Red Blood Count 3.07 M/mm3 (4.2-5.4); White Blood Count 3.2 K/mm3 (4.5-10.0)
[2025-07-29 05:20] LABS: Alanine Aminotransferase 26 U/L (6-35); Albumin Level 2.1 g/dL (3.5-5.1); Alkaline Phosphatase 83 U/L (38-126); Anion Gap -1 mmol/L (4-12); Aspartate Amino Transferase 38 U/L (14-36); Bilirubin,Total 0.5 mg/dL (0.2-1.3); Blood Urea Nitrogen 3 mg/dL (7-17); Calcium 7.9 mg/dL (8.4-10.2); Carbon Dioxide 27 mmol/L (22-30); Chloride 103 mmol/L (98-107); Estimated CRCL calculation 96 ml/min; Estimated Glomerular Filt Rate > 60; Glucose 81 mg/dL (65-110); Magnesium 1.7 mg/dL (1.6-2.3); Potassium 3.3 mmol/L (3.4-5.0); Sodium 129 mmol/L (137-145); Total Protein 4.2 g/dL (6.3-8.2)
[2025-07-29 06:00] VITALS: BP 118/86; PULSE 75; RESP 14; TEMP 36.1; O2SAT 98
--- NOTE | 2025-07-29 07:02 | PM.DS ---
DS: Admitting Diagnosis Discharge Date 07/29/25 Admitting Diagnosis - altered mental status - dementia - hyponatremia DS: Discharge Diagnosis Discharge Diagnosis (1) Encephalopathy acute: Code(s): G93.40 - Encephalopathy, unspecified Status: Acute (2) Electrolyte imbalance: Code(s): E87.8 - Other disorders of electrolyte and fluid balance, not elsewhere classified Status: Acute (3) Fall: Qualifiers: Encounter type: initial encounter Qualified Code(s): W19.XXXA - Unspecified fall, initial encounter Code(s): W19.XXXA - Unspecified fall, initial encounter Status: Acute (4) Dementia: Qualifiers: Dementia type: Alzheimer's Alzheimer's disease onset: early onset Dementia severity: severe Dementia behavioral or psychological symptom: unspecified whether behavioral, psychotic, or mood disturbance or anxiety Qualified Code(s): G30.0 - Alzheimer's disease with early onset; F02.C0 - Dementia in other diseases classified elsewhere, severe, without behavioral disturbance, psychotic disturbance, mood disturbance, and anxiety Code(s): F03.90 - Unspecified dementia, unspecified severity, without behavioral disturbance, psychotic disturbance, mood disturbance, and anxiety Status: Acute (5) Elevated MCV: Code(s): R71.8 - Other abnormality of red blood cells Status: Acute (6) Severe protein-calorie malnutrition: Code(s): E43 - Unspecified severe protein-calorie malnutrition Status: Acute DS: Summary Hospital Course Reason for hospitalization: - altered mental status Hospital Course: 65-year-old female with a medical history of dementia, alcohol use and essential hypertension who presented to the ER from home via EMS after being found confused and down on the floor. Family reports the patient has known dementia and is usually alert orient times 2-3 in able to recognize her children. Her children report that her memory had been worsening over the last several weeks. Her had been her primary caregiver. The patient's neighbors noticed that the door to the house was opened they tried to call the patient's and could not get a hold of him so they called the family. When EMS arrived at the home they found the patient's in the bathroom. In ED, MCV 100.3, sodium 126, potassium 2.8, creatinine 0.43, phosphorus 1.6, Mag 1.4, AST 47, ALT 40. CT head no acute process. CXR no acute process. Patient was admitted for further evaluation management as patient was unable to care for herself. Patient had replacement of her electrolytes and was started on IV fluids. Patient has significant history of alcohol abuse and has chronic hyponatremia per chart review. She did not show signs of alcohol withdrawal while admitted. Sodium did minimally improve with IV fluids. Dietitian was consulted due to patient's poor p.o. intake and she was started on supplements which will be continued on discharge. Patient's intake was improving on discharge. Patient's family arranged assisted living/memory care for patient on discharge. Patient's mental status was at baseline per family. She will obtain a repeat BMP and CBC in 5-7 days to monitor electrolytes and hemoglobin. Patient was discharged to Memory Care in stable condition. Time Spent with Patient Time attestation: Total time spent providing and/or coordinating discharge services: Time spent: Greater than 30 minutes Exam Narrative: General: NAD Eyes: EOMI ENT: neck supple Cardiovascular: Regular rate and rhythm Respiratory: Clear to auscultation, respirations even and unlabored on RA Gastrointestinal: Soft, non tender Genitourinary: no suprapubic tenderness Musculoskeletal: No edema Skin: warm, dry Neuro: Alert and oriented x1. Psych: Mood appropriate DS: Data Data Completed and Pending Completed studies during hospitalization: ITS Impressions Head CT 07/25/25 17:24 IMPRESSION: 1. No acute intracranial process. 2. Moderate diffuse cerebral volume loss which is disproportionate for age with mild scattered white matter hypoattenuation consistent with chronic small vessel ischemic disease. Chest X-Ray 07/25/25 17:31 IMPRESSION: 1. No acute cardiopulmonary disease. Labs on day of discharge: Labs from last 24 hours 07/29/25 07/29/25 07/29/25 05:47 04:37 00:43 WBC 3.2 L RBC 3.07 L Hgb 10.8 L Hct 32.0 L MCV 104.2 H MCH 35.2 H MCHC 33.8 RDW 15.0 H Plt Count 195 MPV 10.3 Immature Gran % (Auto) 0.6 H Neut % (Auto) 60.6 Lymph % (Auto) 21.9 [place] % (Auto) 14.7 H Eos % (Auto) 1.6 Baso % (Auto) 0.6 Lymph # (Auto) 0.[address] [place] # (Auto) 0.5 Eos # (Auto) 0.1 Baso # (Auto) 0.0 Abs Immat Gran (auto) 0.02 Absolute Neuts (auto) 1.9 Absolute Nucleated RBC 0.000 Nucleated RBC % 0.0 Sodium 129 L Potassium 3.3 L Chloride 103 Carbon Dioxide 27 Anion Gap -1 L BUN 3 L Creatinine 0.32 L Estim Creat Clear Calc 96 Estimated GFR > 60 Glucose 81 POC Capillary Glucose 87 100 Calcium 7.9 L Magnesium 1.7 Total Bilirubin 0.5 AST 38 H ALT 26 Alkaline Phosphatase 83 Total Protein 4.2 L Albumin 2.1 L 07/28/25 07/28/25 17:42 11:43 WBC RBC Hgb Hct MCV MCH MCHC RDW Plt Count MPV Immature Gran % (Auto) Neut % (Auto) Lymph % (Auto) [place] % (Auto) Eos % (Auto) Baso % (Auto) Lymph # (Auto) [place] # (Auto) Eos # (Auto) Baso # (Auto) Abs Immat Gran (auto) Absolute Neuts (auto) Absolute Nucleated RBC Nucleated RBC % Sodium Potassium Chloride Carbon Dioxide Anion Gap BUN Creatinine Estim Creat Clear Calc Estimated GFR Glucose POC Capillary Glucose 119 H 117 H Calcium Magnesium Total Bilirubin AST ALT Alkaline Phosphatase Total Protein Albumin Discharge Plan Discharge Attending physician on discharge: Benjamin Matos Consulting providers: Say Caraballo; Mendel Davidson; Usman Valenzuela; Ana Muir Discharging Clinician: Ana Muir Anticipated Discharge Date/Time: 07/29/25 08:55 Patient Disposition: Home Activity: as tolerated Diet: regular Discharge Instructions: Take all medications as prescribed. Patient has history of alcohol abuse and was started on thiamine. Patient had hypokalemia and hyponatremia. She should obtain repeat labs in 5 days. Baseline sodium appears to be around 130-132. Patient also has chronic anemia. Continue nutrition supplements with lunch and encourage PO intake. Follow-up with your primary care provider in 5-7 days. Return to the emergency department if you develop chest pain, shortness of breath, persistent fever >100.4, confusion, loss of consciousness. Patient Instructions: Antibiotic Form Patient Language: Indonesian Stand Alone Forms: General Discharge Information Follow-up/Referrals: Usman Valenzuela MD [Physician, Neurology] - Call for Appointment Referral Note: dementia sukhjinder Cabralacht,Nydia Odonnell, ANP [Primary Care Provider, Unknown] - Call for Appointment Discharge Medications: New thiamine HCl (vitamin B1) [Vitamin B-1] 100 mg Tablet 100 mg PO QAM Qty: 30 0RF Continued ondansetron HCl 4 mg tablet 4 mg PO Q6H fluoxetine 10 mg tablet 10 mg PO DAILY pantoprazole 40 mg tablet,delayed release (DR/EC) 40 mg PO DAILY Dupixent Pen 300 mg/2 mL pen injector SUBCUT Other Ambulatory Orders: Basic Metabolic Panel (Routine) Timeframe: 5 Days Location: Determined by Patient Ordered By: Ana Muir Complete Blood Count with Diff (Routine) Timeframe: 5 Days Location: Determined by Patient Ordered By: Ana Muir Date of admission: 07/26/25 07:55 Primary Care Provider: Fiorella,Nydia Odonnell Admitting Provider: Liza Roque Attending physician on admission: Liza Roque Condition: Stable
[2025-07-29 07:52] VITALS: RESP 14; O2SAT 98
[2025-07-29] MEDS: PANTOPRAZOLE 40 MG TABLET PO (08:01)
[2025-07-29] MEDS: ENOXAPARIN 40 MG/0.4 ML SYRINGE SUB-Q (08:01)
[2025-07-29] MEDS: THERAPEUTIC MULTIVITAMINS/MINERALS TAB (*BKC) 1 TABLET PO (08:01)
[2025-07-29] MEDS: POTASSIUM CHLORIDE 20 MEQ PACKET (FOR LIQUID) 40 MEQ PO (08:01)
[2025-07-29] MEDS: THIAMINE HCL 100 MG TABLET PO (08:02)
[2025-07-29] MEDS: PHENYLEPH/MINERAL OIL/PETROLAT OINTMENT 57 GM 1 APPLIC RECTAL (08:02)
[2025-07-29] MEDS: FOLIC ACID 1 MG TABLET PO (08:02)
[2025-07-29] MEDS: ACETAMINOPHEN 325 MG TABLET 650 MG PO (08:50)
== END 2025-07-29 13:00 | DRG 640 ==
LOC: ANHED 18:20 → ANH2MED 20:16
PROVIDERS: Physician Assistant; Admitting Provider Internal Medicine; Emergency Provider Emergency Medicine; PCP Nurse Practitioner; Visit Provider Physician Assistant
DX: E87.1 Hypo-osmolality and hyponatremia (principal); E43 Unspecified severe protein-calorie malnutrition; Z68.1 Body mass index [BMI] 19.9 or less, adult; G93.40 Encephalopathy, unspecified; E87.6 Hypokalemia; G30.9 Alzheimer's disease, unspecified; F02.80 Dementia in other diseases classified elsewhere, unspecified severity, without behavioral disturbance, psychotic disturbance, mood disturbance, and anxiety; E83.42 Hypomagnesemia; F10.10 Alcohol abuse, uncomplicated; E83.39 Other disorders of phosphorus metabolism; I10 Essential (primary) hypertension; F41.9 Anxiety disorder, unspecified; L30.9 Dermatitis, unspecified; E03.9 Hypothyroidism, unspecified; Z96.643 Presence of artificial hip joint, bilateral; W19.XXXA Unspecified fall, initial encounter
CPT/HCPCS: 36415; 70450; 71045; 80048; 80053; 80143; 80179; 80307; 81001; 82077; 82140; 82550; 82607; 82746; 82948; 83605; 83735; 83921; 84100; 84443; 84484; 85025; 85610; 85730; 93005; 96365; 96366; 96367; 96375; 97110; 97116; 97161; 97166; 97530; 99285; A9270; G0378; J1650; J2405; J3411; J3475; J3480; J7042; J7050

== ENCOUNTER 2025-08-14 08:02 | Emergency (ER) | payer MEDICARE, OTHER, SELFPAY ==
--- NOTE | ~2025-08-14 | US_ITS ---
EXAMINATION: US venous doppler [facility] DATE: 08/14/2025 08:39 INDICATION: Left lower limb swelling. TECHNIQUE: Grayscale ultrasound images without and with compression and Doppler ultrasound images of the left lower extremity veins were obtained. COMPARISON: None. FINDINGS: The visualized portions of left common femoral vein, profunda (deep) femoral vein, femoral vein, popliteal vein, peroneal veins, posterior tibial veins, and greater saphenous vein outflow are patent. IMPRESSION: 1. No deep venous thrombosis. Reviewed, dictated and finalized at location E.
--- NOTE | ~2025-08-14 | CT_ITS ---
CT HEAD NON-CONTRAST CT C-SPINE Clinical History: trauma Comparison: CT brain 07/25/2025 Technique: Unenhanced axial images skull base to vertex. Coronal, sagittal reformats. Axial images thoracic inlet to skull base. Sagittal and coronal reformats. CT images acquired with automatic exposure control for dose reduction DLP: 605 mGy-cm Findings: Head: Global atrophy. Mild white matter changes, typically chronic microvascular ischemic disease Sulci, ventricles: Unremarkable. No intracerebral hemorrhage. No evidence acute territorial infarct. No mass effect, midline shift, intra-/extra-axial fluid collection. Bony calvarium intact. Visualized paranasal sinuses: Clear. Mastoid air cells: Clear. Hyperdense right globe likely silicone, with scleral banding. C-spine: No acute fracture. Grade 1 anterolisthesis of C3 on 4, C4 on 5. Moderate significant degenerative changes. Disc spaces maintained. Prevertebral soft tissues within normal limits. Visualized lung apices: Clear. Visualized thyroid: Unremarkable. No enlarged cervical nodes. IMPRESSION: HEAD: 1. No acute intracranial findings. C-SPINE: 1. No acute fracture. Reviewed, dictated and finalized at location R. IMPRESSION: HEAD: 1. No acute intracranial findings. C-SPINE: 1. No acute fracture.
--- NOTE | ~2025-08-14 | XR_ITS ---
X-rays left hand Indication: Trauma Comparison: 04/28/2025 Technique: 3 views left hand Findings/Impression: 1. No fracture or dislocation left hand. 2. Scattered degenerative changes. Reviewed, dictated and finalized at location R.
--- NOTE | ~2025-08-14 | XR_ITS ---
X-rays left foot Indication: Trauma Comparison: None Technique: 4 views left foot Findings/Impression: 1. Nondisplaced fracture proximal fifth metatarsal suspected. 2. Slight angulation of distal fifth metatarsal, suspect chronic injury but acute injury not excluded. Recommend correlation with point tenderness. 3. Bunion deformity first MTP joint. 4. Osteopenia. 5. Mild scattered degenerative changes. Reviewed, dictated and finalized at location R.
[2025-08-14 07:57] VITALS: BP 125/88; PULSE 71; RESP 15; TEMP 36.7; O2SAT 100
--- NOTE | 2025-08-14 08:12 | ED_ITS ---
HPI - General Adult General Chief complaint: Fall Stated complaint: fall yesterday, right hand swelling History of Present Illness HPI narrative: 65-year-old female presents to the emergency department for evaluation after having a fall. Patient knows she had a fall but does not recall the context of the fall. Patient does have Alzheimer's dementia and is a new resident to her intermediate. Patient denies any pain when asked. Patient does have some tenderness of the left ring finger and ecchymosis. Patient had a ring that was on that was removed. Patient does have some tenderness of the left foot and swelling of the left ankle. History of Hypertension, dementia Related Data Home Medications ?Medication ?Instructions ?Recorded ?Confirmed ?Last Taken ?Type dupilumab 300 mg/2 mL subcutaneous mg subcut 09/15/24 Unknown History pen injector (Dupixent) fluoxetine 10 mg tablet 10 mg PO DAILY 07/25/2512/18 Unknown History ondansetron HCl 4 mg tablet 4 mg PO Q6H 07/25/2507/25 Unknown History pantoprazole 40 mg tablet,delayed 40 mg PO DAILY 07/2507/25/25 Unknown History release Allergies Allergy/AdvReac Type Severity Reaction Status Date / Time hydrochlorothiazide Allergy Intermediate Other Verified 08/14/25 08:06 hydrocodone Allergy Hallucinati Verified 08/14/25 08:06 ng atropine AdvReac Intermediate Fever Verified 08/14/25 08:06 Review of Systems Review of Systems: All systems reviewed & are unremarkable except as noted in HPI and below PMFSH Past Medical History Medical History Chronic hyponatremia Dementia Hypertension Anxiety Eczema Surgical History Surgical History History of bilateral hip replacements Family History Family History Mother Cervical cancer Macular degeneration Diabetes type 1, controlled Social History Social History Social History: 07/25/2025. Code status: Full code. Surrogate decision maker: Children Smoking status: Never smoker Second hand tobacco smoke exposure: Yes Alcohol intake: current Drinks per week: 10 Substance use: never Lack of Transportation: No Lack of Food: Never True Current Housing: I Have Housing Concerned About Future Housing: No Difficulty Paying Gas/Electric Bills: No Difficulty Paying for Meds: No Currently Unemployed: No Education: Bachelor's Degree Difficulty w/ Childcare or Family Care: No Spiritual care concerns: No Exam Narrative: APPEARANCE: Well appearing, no pain, no distress, well-nourished. HEAD: normocephalic, atraumatic. EYES: PERRLA/EOMI, conjunctivae clear. NOSE: Normal no drainage EARS:TMS clear with good light reflex. THROAT: Pharynx clear, no exudate. NECK: Supple. No adenopathy, no masses. RESPIRATORY: Airway patent, respirations nonlabored. Clear to auscultation bilaterally, no rales, rhonchi, wheezing. CARDIOVASCULAR: Regular rate and rhythm without murmurs rubs or gallops. ABDOMINAL: Soft, nontender, nondistended, normal bowel sounds MUSCULOSKELETAL: Mild proximal foot tenderness to palpation, no lateral foot tenderness to palpation. No pain with ambulation. Swelling of the distal left leg and ankle. NEURO: Alert. Cranial nerves II through XII intact. Good gait. Good coordination SKIN: Warm, dry. Normal Color Course Vital Signs Vital signs: Vital Signs Temperature 98.1 F 08/14/25 07:57 Pulse Rate 71 08/14/25 07:57 Respiratory Rate 15 08/14/25 07:57 Blood Pressure 125/88 08/14/25 07:57 Pulse Oximetry 100 08/14/25 07:57 Temperature 98.1 F 08/14/25 07:57 Pulse Rate 78 08/14/25 10:51 Respiratory Rate 15 08/14/25 10:51 Blood Pressure 123/75 08/14/25 10:51 Pulse Oximetry 99 08/14/25 10:51 Medical Decision Making [facility] Narrative Medical decision making narrative: 65-year-old female with history of Alzheimer's presents emergency department for evaluation after having a ground level fall. Patient had negative head CT negative cervical spine CT ultrasound was negative for DVT and x-ray was negative for acute fracture dislocation. No significant fracture or dislocation on the foot x-ray. Patient has tenderness to the lateral malleolus but no point tenderness on the foot concerning for a 5th metatarsal fracture. Patient was updated on results of her workup. Patient denies any other pain or complaints. Patient was able to ambulate and denies any pain or discomfort the left foot. Patient was well-appearing at time of discharge. Differential Diagnosis Differential Diagnosis: Subdural hematoma, subarachnoid hemorrhage, hand fracture, finger fracture, foot fracture Vital Signs Vital Signs: Vital Signs Temperature 98.1 F 08/14/25 07:57 Pulse Rate 71 08/14/25 07:57 Respiratory Rate 15 08/14/25 07:57 Blood Pressure 125/88 08/14/25 07:57 Pulse Oximetry 100 08/14/25 07:57 Temperature 98.1 F 08/14/25 07:57 Pulse Rate 78 08/14/25 10:51 Respiratory Rate 15 08/14/25 10:51 Blood Pressure 123/75 08/14/25 10:51 Pulse Oximetry 99 08/14/25 10:51 Imaging Data Radiologist's impression: Impressions Cervical Spine CT 08/14/25 08:26 IMPRESSION: HEAD: 1. No acute intracranial findings. C-SPINE: 1. No acute fracture. Head CT 08/14/25 08:26 IMPRESSION: HEAD: 1. No acute intracranial findings. C-SPINE: 1. No acute fracture. Venous Doppler Study 08/14/25 08:46 IMPRESSION: 1. No deep venous thrombosis. Discharge Plan Discharge Clinical Impression: Head injury, Leg swelling Patient Disposition: Home Condition: Stable Instructions: Antibiotic Form, Head Injury (ED) Additional Instructions: Have close follow-up with your primary care physician. If you have any worsening symptoms please call or return to the emergency department. Patient Language: Egyptian Prescriptions: No Action ondansetron HCl 4 mg tablet 4 mg PO Q6H fluoxetine 10 mg tablet 10 mg PO DAILY pantoprazole 40 mg tablet,delayed release (DR/EC) 40 mg PO DAILY thiamine HCl (vitamin B1) [Vitamin B-1] 100 mg Tablet 100 mg PO QAM Qty: 30 0RF Dupixent Pen 300 mg/2 mL pen injector SUBCUT Follow-up/Referrals: Fiorella,MEMO Alicea [Primary Care Provider, Unknown]
[2025-08-14 09:21] VITALS: BP 120/74; PULSE 73; RESP 20; O2SAT 100
[2025-08-14 10:51] VITALS: BP 123/75; PULSE 78; RESP 15; O2SAT 99
== END 2025-08-14 12:29 | disposition home or self-care (01) ==
PROVIDERS: Emergency Provider Emergency Medicine; PCP Nurse Practitioner
DX: S09.90XA Unspecified injury of head, initial encounter (principal); M79.89 Other specified soft tissue disorders; G30.9 Alzheimer's disease, unspecified; F02.80 Dementia in other diseases classified elsewhere, unspecified severity, without behavioral disturbance, psychotic disturbance, mood disturbance, and anxiety; I10 Essential (primary) hypertension; F41.9 Anxiety disorder, unspecified; W19.XXXA Unspecified fall, initial encounter
CPT/HCPCS: 70450; 72125; 73130; 73630; 93971; 99284

== ENCOUNTER 2025-09-19 10:30 | Emergency (ER) | payer MEDICARE, OTHER, SELFPAY ==
--- OUTSIDE RECORDS SUMMARY | 2025-08-01 10:20 | XMS_ITS ---
Author Organization [facility] Address [address] [place], [place] [id number] Care Team Providers Care Cob Sawyer Name Role Phone LIBBY RIVERO Unavailable [phone] Nydia Barros Unavailable Unavailable REASON FOR VISIT *General care Encounters Encounter Location Date Provider Diagnosis [facility] [place] [address] [place], [place] [id number] 08/01/2025 LIBBY RIVERO Plan Of Treatment No Information Progress Notes * Brenna CONTEiDOB:[birth year] (65 yo F)Acc No.[id number]:08/01/2025 Patient: Brenna Casillas Provider: Mike Rivero DPM :1960 A ge:65 Y S ex:Female Date:08/01/2025 Address:[address] [place] [address] [address] [id number] Subjective: * Chief Complaints: * * General care Billing Information: * Procedure Codes: * Electronic signature of LIBBY RIVERO DPM on 09/19/2025 at 01:23 PM CDT Sign off status: Pending * Provider: Mike Rivero DPM Date: 0 08/01/2025 Generated for Mohinderi kishan/Vijaya/eTransmitting on: 1 01:23 PM CDT
--- NOTE | ~2025-09-19 | XR_ITS ---
Examination: XR wrist RT min 3V, XR hand RT min 3V Clinical History: swelling and redness ON POSTERIOR ASPECT Comparison: Right hand x-rays 04/28/2025 Technique: 4 views right wrist, 4 views right hand Findings/impression: Right wrist: 1. No fracture or dislocation. 2. Calcification within TFCC. 3. Radiocarpal joint space narrowing, and diffuse degenerative changes of carpal rows. Right hand: 1. No fracture or dislocation. 2. Scattered degenerative changes. 3. Dorsal soft tissue swelling along wrist. Reviewed, dictated and finalized at location R.
[2025-09-19 10:28] VITALS: BP 140/88; PULSE 81; RESP 16; TEMP 36.4; O2SAT 95
--- NOTE | 2025-09-19 10:50 | PC.NURSE ---
Pt wanted to go to the bathroom. Pt ambulated there with my assistance, however she was kind of unstable. Wheelchair was obtained to place pt back into the room.
--- NOTE | 2025-09-19 11:22 | ED_ITS ---
HPI - Extremity Problem General Chief complaint: Extremity Problem,Nontraumatic Stated complaint: R hand swelling Time Seen by Provider: 09/19/25 10:48 Source: other (longterm report and EMS) Mode of arrival: EMS Limitations: clinical condition and dementia History of Present Illness HPI Narrative: This is a 65-year-old female patient who is a resident a memory care facility who was sent to the emergency room for evaluation of swelling and redness to the right hand and wrist. This was noted this morning, no known injury. Patient is a poor historian secondary to her degree of dementia. There was no known or documented acute injury. Patient has been afebrile here. Related Data Home Medications ?Medication ?Instructions ?Recorded ?Confirmed ?Last Taken ?Type dupilumab 300 mg/2 mL subcutaneous mg subcut 09/15/24 Unknown History pen injector (Dupixent) fluoxetine 10 mg tablet 10 mg PO DAILY 07/25/2512/18 Unknown History ondansetron HCl 4 mg tablet 4 mg PO Q6H 07/25/2507/25 Unknown History pantoprazole 40 mg tablet,delayed 40 mg PO DAILY 07/2507/25/25 Unknown History release Allergies Allergy/AdvReac Type Severity Reaction Status Date / Time hydrochlorothiazide Allergy Intermediate Other Verified 08/14/25 08:06 hydrocodone Allergy Hallucinati Verified 08/14/25 08:06 ng atropine AdvReac Intermediate Fever Verified 08/14/25 08:06 [facility] Past Medical History Medical History Chronic hyponatremia Dementia Hypertension Anxiety Eczema Surgical History Surgical History History of bilateral hip replacements Family History Family History Mother Cervical cancer Macular degeneration Diabetes type 1, controlled Social History Social History Social History: 07/25/2025. Code status: Full code. Surrogate decision maker: Children Smoking status: Never smoker Second hand tobacco smoke exposure: Yes Alcohol intake: current Drinks per week: 10 Substance use: never Lack of Transportation: No Lack of Food: Never True Current Housing: I Have Housing Concerned About Future Housing: No Difficulty Paying Gas/Electric Bills: No Difficulty Paying for Meds: No Currently Unemployed: No Education: Bachelor's Degree Difficulty w/ Childcare or Family Care: No Spiritual care concerns: No Exam 2 Const: General: no acute distress, alert and confusion Nutritional Appearance: well nourished Orientation/consciousness: No patient oriented x3 (Alert oriented to self only) Limitations: other limitations (Dementia) HENMT: Head: normal to inspection Mouth: Yes moist mucous membranes T hroat: posterior oropharynx normal Eyes: Conjunctivae: conjunctivae normal Pupils: Equal, round and reactive pupils present EOM: EOMs intact bilaterally Neck: Neck: normal visual inspection, no lymphadenopathy and meningismus present Other: Full supple range of motion without any deficits. There is no noted JVD. Chest: Other: Nontender to palpation Resp: Effort & Inspection: normal respiratory effort Auscultation: clear to auscultation bilaterally Cardio: Rate: regular rate Rhythm: regular rhythm Heart sounds: no murmurs GI: GI Palp: Yes Soft to palpation, No Tenderness to palpation present (GI), No Guarding due to palpation present (GI), No Rigid due to palpation, No Hernia present and No Palpable mass present Auscultation: normal bowel sounds Back/Spine/Pelvis: Back: no CVA tenderness Skin: General skin exam: No normal color (Erythema right hand and wrist dorsal surface without lesions/blister/injury) Rashes: no rashes Wounds: no wounds Other: He and is warm to the touch dorsal surface only. No obvious signs of acute traumatic injury or infection. Neuro: Other: At baseline, alert and oriented to self only. Otherwise nonfocal exam grossly. Extrem: General: normal to inspection, no clubbing, cyanosis or edema and no pedal edema Psych: Affect: normal affect Course Course Emergency Course: Differential diagnosis includes but not limited to: Cellulitis right hand/wrist, fracture right hand/wrist Patient's vital signs are reviewed and are stable Workup initiated with labs and imaging. Imaging without any acute dislocation or bony abnormality. White blood cell count is normal. Patient does not appear to have acute cellulitis, however there is definitely noted swelling. Suspect inflammation. Will patient patient on a course of steroids, rapid hand and wrist with Constantin wrap and also placed on a course of Keflex. Advised follow-up with primary care provider. Patient discharged at this time in stable condition. Vital Signs Vital signs: Vital Signs Temperature 97.5 F L 09/19/25 10:28 Pulse Rate 81 09/19/25 10:28 Respiratory Rate 16 09/19/25 10:28 Blood Pressure 140/88 09/19/25 10:28 Pulse Oximetry 95 09/19/25 10:28 Oxygen Delivery Room Air 09/19/25 10:28 Temperature 97.5 F L 09/19/25 10:28 Pulse Rate 81 09/19/25 10:28 Respiratory Rate 16 09/19/25 10:28 Blood Pressure 140/88 09/19/25 10:28 Pulse Oximetry 95 09/19/25 10:28 Oxygen Delivery Room Air 09/19/25 10:28 MDM - Extremity (Nontraumatic) MDM Narrative Medical decision making narrative: See ED course Lab Data 09/19/25 11:59 09/19/25 11:59 Labs: Lab Results 09/19/25 Range/Units 11:59 WBC 8.0 (4.5-10.0) K/mm3 RBC 3.61 L (4.2-5.4) M/mm3 Hgb 11.8 L (12.0-15.0) g/dL Hct 35.0 L (37.0-47.0) % MCV 97.0 (80-100) fl MCH 32.7 (26-34) pg MCHC 33.7 (32-36) g/dl RDW 12.5 (11.5-14.5) % Plt Count 242 (150-375) k/mm3 MPV 9.9 (7.4-10.4) fl Immature Gran % (Auto) 0.5 (0-0.5) % Neut % (Auto) 73.3 H (45.5-73.1) % Lymph % (Auto) 10.6 L (18.3-44.2) % [place] % (Auto) 14.9 H (2.6-8.5) % Eos % (Auto) 0.5 (0-4.4) % Baso % (Auto) 0.2 (0.2-1.2) % Lymph # (Auto) 0.85 L (0.9-3.2) K/mm3 [place] # (Auto) 1.2 H (0.1-0.6) K/mm3 Eos # (Auto) 0.0 (0-0.3) K/mm3 Baso # (Auto) 0.0 (0.0-0.1) K/mm3 Abs Immat Gran (auto) 0.04 H (0.00-0.031) K/mm3 Absolute Neuts (auto) 5.9 (1.3-6.7) K/mm3 Absolute Nucleated RBC 0.000 (0.0-0.012) K/mm3 Nucleated RBC % 0.0 (0.0-0.2) % Sodium 128 L (137-145) mmol/L Potassium 3.7 (3.4-5.0) mmol/L Chloride 94 L (98-107) mmol/L Carbon Dioxide 30 (22-30) mmol/L Anion Gap 4 (4-12) mmol/L BUN 7 (7-17) mg/dL Creatinine 0.39 L (0.7-1.0) mg/dL Estim Creat Clear Calc 94 ml/min Estimated GFR > 60 (59 - ) Glucose 108 (65-110) mg/dL Calcium 8.9 (8.4-10.2) mg/dL Total Bilirubin 1.1 (0.2-1.3) mg/dL AST 21 (14-36) U/L ALT 9 (6-35) U/L Alkaline Phosphatase 99 (38-126) U/L Total Protein 6.4 (6.3-8.2) g/dL Albumin 3.7 (3.5-5.1) g/dL Imaging Data Radiologist's impression: No acute bony abnormalities present. Discharge Plan Discharge Clinical Impression: Joint inflammation of right hand and wrist Patient Disposition: SNF Condition: Stable Instructions: Swollen Joint (ED) Additional Instructions: Thank you for allowing us to evaluate Brenna in the emergency room today. Labs and imaging were obtained. There are no bony abnormalities identified on the wrist or hand. Labs were otherwise unremarkable. Patient is being treated for inflammation due to likely arthritis as well as being covered with an antibiotic. Please give all medications as ordered keep wrapped with an Constantin wrap for swelling. Removed the Constantin wrap every shift to re-evaluate the skin. Follow up primary care provider within the next few days. Patient Language: Danish Prescriptions: New cephalexin 500 mg capsule 500 mg PO Q8H Qty: 30 0RF prednisone 50 mg tablet 50 mg PO DAILY Qty: 7 0RF No Action ondansetron HCl 4 mg tablet 4 mg PO Q6H fluoxetine 10 mg tablet 10 mg PO DAILY pantoprazole 40 mg tablet,delayed release (DR/EC) 40 mg PO DAILY thiamine HCl (vitamin B1) [Vitamin B-1] 100 mg Tablet 100 mg PO QAM Qty: 30 0RF Dupixent Pen 300 mg/2 mL pen injector SUBCUT Follow-up/Referrals: Fiorella,MEMO Alicea [Primary Care Provider, Unknown] Stand Alone Forms: Jail Discharge
[2025-09-19 12:07] LABS: Hematocrit 35.0 % (37.0-47.0); Hemoglobin 11.8 g/dL (12.0-15.0); Immature Granulocyte Percent A 0.5 % (0-0.5); Lymphocytes Absolute Auto 0.85 K/mm3 (0.9-3.2); Mean Corpuscular HGB Conc 33.7 g/dl (32-36); Mean Corpuscular Hemoglobin 32.7 pg (26-34); Mean Corpuscular Volume 97.0 fl (80-100); Nucleated Red Blood Cells Absolute Auto 0.000 K/mm3 (0.0-0.012); Nucleated Red Blood Cells Perc 0.0 % (0.0-0.2); Platelet Count Result 242 k/mm3 (150-375); Red Blood Count 3.61 M/mm3 (4.2-5.4); White Blood Count 8.0 K/mm3 (4.5-10.0)
[2025-09-19 12:17] LABS: Alanine Aminotransferase 9 U/L (6-35); Albumin Level 3.7 g/dL (3.5-5.1); Alkaline Phosphatase 99 U/L (38-126); Anion Gap 4 mmol/L (4-12); Aspartate Amino Transferase 21 U/L (14-36); Bilirubin,Total 1.1 mg/dL (0.2-1.3); Blood Urea Nitrogen 7 mg/dL (7-17); Calcium 8.9 mg/dL (8.4-10.2); Carbon Dioxide 30 mmol/L (22-30); Chloride 94 mmol/L (98-107); Estimated CRCL calculation 94 ml/min; Estimated Glomerular Filt Rate > 60; Glucose 108 mg/dL (65-110); Potassium 3.7 mmol/L (3.4-5.0); Sodium 128 mmol/L (137-145); Total Protein 6.4 g/dL (6.3-8.2)
--- NOTE | 2025-09-19 12:55 | PC.NURSE ---
Yana Guzman was called by this RN to give report on pt status and let them know that she was returning to the facility. [place] did not answer. Pts son was here with her and is taking her back to the facility.
--- OUTSIDE RECORDS SUMMARY | 2025-09-19 13:24 | XMS_ITS | Clinical Summary ---
Author Organization [facility] Address [address] [place] [address] Care Team Providers Care Industrial Health Engineer Name Role Phone Nydia Barros APRN-CREEL CLEANER Primary Care Provi jones Source Comments [facility],non-owned Affiliates and Associated Physician Practices is amultiple site organization consisting of ambulatory clinics and hospital sitesin [place], [place], [place] and [place]. This disclosure is being madepursuant to the Care Everywhere program and may not contain all information available regarding this patient. Last updated 18.[facility] Allergies Active Allergy Reactions Criticality Noted Date [...] on file Legal Sex Female 5:40 PM CHILD NEUROLOGIST Gender Identity Not on file Sexual Orientation [...] Care Team (Late st Contact Info) Description 11/14/2025 1:20 PM CHILD NEUROLOGIST Office Visit [facility] - Rhe[facility]ology [address] [place] [phone] Quiana Minor MD [address] [facility] [address] [facility] [place] [phone] Health Maintenance Due Date Last Done Comments [...] 02/08/2023 02/08/2021, 01/22, 12/27/2019, Additional history exists DEPRESSION SCREENING 11/24/2024 COVID-19 VACCINE ( season) 2025 11/22/2022, 06/16/2022, 11/15/2021 INFLUENZA VACCINE (#1) 2025 4, 09/04/2023, 11/15/2021, Additional history exists COLON MONITORING [...] age to complete this topic Insurance MEDICARE [facility] MEDICARE [facility] Care Teams Industrial Health Engineer Relationship Specialty Start Date End Date Nydia Barros APRN-ARIELLE [address] [place] [address] PCP - General 09/06/22
--- OUTSIDE RECORDS SUMMARY | 2025-09-19 13:24 | XMS_ITS | Clinical Summary ---
Author Organization [facility] Address [facility] [place] [address] Care Team Providers Care Bowling Alley Attendant Name Role Phone Nydia Barros NP Primary Care Provider [phone] Allergies Active Allergy Reactions Criticality Noted Date [...] acetate (PRED FORTE) 1 % ophthalmic suspension 3 Active clobetasol (TEMOVATE) 0.05 % ointment Apply topically 2 (two) times daily. 4 Active hydrocortisone (HYTONE) 2.5 % ointment Apply topically 2 (two) times daily. 4 Active lidocaine (LIDODERM) 5 % 4 Active Sod Picosulfate-Mag Ox-Cit Acd (CLENPIQ) 10-3.5-12 MG-GM -GM/175ML SolutionIndicat ions:Change in stool,Poor appetite Take 175 mLs by mouth 2 (two) times a day. Per GI instructions 350 mL 5 Active pantoprazole EC (PROTONIX) 40 MG tabletIndicatio ns:Gastroesopha geal reflux disease, unspecified whether esophagitis present Take 1 tablet (40 mg total) by mouth daily. 90 tablet 3 5 02/23/20 26 Active donepezil (ARICEPT) 10 MG Tab Take 1 tablet (10 mg total) by mouth nightly at bedtime. Active DUPIXENT 300 MG/2ML injection (PEN) Inject 2 mLs (300 mg total) into the skin every 14 (fourteen) days. Active FLUoxetine (PROZAC) 10 MG tabletIndicatio ns:Depression, unspecified depression type Take 2 tablets (20 mg total) by mouth daily. 5 Active ondansetron (ZOFRAN) 4 MG tabletIndicatio ns:Nausea Take 1 tablet (4 mg total) by mouth every 8 (eight) hours as needed. 30 tablet 5 Active Active Problems Problem Noted Date [...] a neurologist specializing in memory disorders at [facility], -They have not been given a definitive [...] she is to have rechecked this month. Personal Assistant is monitoring and ordering following up testing. [...] in doing the senior renewal program at [facility] in [facility]. It is ran by Dr. Avalos who [...] hypercholesterolemia 09/02/2022 Congenital dysplasia of hips, bilateral 11/03/20 19 [...] Encounters Date Type Department Care Team Description 09/12/2025 [employer] Message [facility] & Nutrition Services [address] [place] [address] Taylor Uribe, RONALD 08/14/2025 Scan [facility] SRVCS Scanned, [facility] Vascular Lab Study (SCAN); CT (SCAN); Image (SCAN) 07/29/2025 Scan [facility] SRVCS Scanned, [facility] 07/27/2025 Scan [facility] SRVCS Scanned, [facility] 07/26/2025 Scan [facility] SRVCS Scanned, [facility] 07/25/2025 Scan [facility] SRVCS Scanned, [facility] CT (SCAN); Image (SCAN) 07/20/2025 12:20 PM CDT Office Visit [address] [place] [address] Nydia Barros NP Anxiety (Patient presents with c/o increase anxiety, feels shaky thinks its from her nerves.) 07/20/2025 Travel 07/12/2025 10:00 AM CDT Allied Health/Nurse Visit [address] [place] [address] Nydia Barros NP Allied Health Visit (Here for weight check. ) 07/12/[address] [place] [address] Nydia Barros NP Refill Request 07/12/2025 Travel 06/28/2025 10:20 AM CDT Allied Health/Nurse Visit [address] [place] [address] Nydia Barros NP Weight Check 06/28/2025 Travel 06/20/2025 Scan [facility]VCS Scanned, [facility] from Last 3 Months Immunizations Immunization Administration Dates Next Due Fluzone 6 Months+ Quad (0.5 mL Prefilled Syringe) 09/04/2023,09/13/2020 Fluzone High Dose (IIV, triv alent, 0.5mL) 10/19/2024 Influenza (Generic) 11/15/2021, 6,09/29/2015,2012,09/30/2012,08/28/2011,11/22/2002 Influenza Adult (Generic) 09/27/2019,07/2019,10/20/2017,2013 MODERNA COVID-19 BIVALENT (1 2+), MRNA, LNP-S, PF 11/22/2022 MODERNA COVID-19 (SPINAL SURGEON KYLAH LINNEA), MRNA, LNP-S, PF, 50 MCG/ 0.25 ML DOSE 06/16/2022,11/15/2021 Pneumococcal (Pneumovax 23) 03/27/2016 Tdap (Generic) 03/27/2016 Zoster (Zostavax) 65805 Unt/0.65Ml 03/27/2016 Family History Medical History Relation [...] Sex Assigned at Female 12/16/2024 3:00 PM INTERPERSONAL COMMUNICATIONS PROFESSOR Legal Sex Female 7:44 PM CDT Gender Identity Female 12/16/2024 3:00 PM INTERPERSONAL COMMUNICATIONS PROFESSOR Sexual Orientation Not on file Last Filed [...] Team (Late st Contact Info) Description 11/14/2025 10:40 AM INTERPERSONAL COMMUNICATIONS PROFESSOR Office Visit [facility] Family Medicine - Martín [address] [place] [address] Nydia Barros NP [address] [place] [address] Health Maintenance Due Date Last Done Comments Zoster Vaccines (2 of 3) 05/22/2016 03/27/2016 Pneumococcal Vaccine: 50+ Years (2 of 2 - PCV) 03/27/2017 03/27/2016 Annual Medicare Wellness Visit 02/11/2024 Dexa Scan (General) 02/11/2024 COVID-19 Vaccine (5 - season) 2025 11/22/2022, 06/16/2022, 11/15/2021, Additional history exists Influenza Adult (#1) 2025 10/19/2024, 09/04/2023, 11/15/2021, Additional history exists DTaP, Tdap and Td Vaccines (2 - Td or Tdap) 03/27/2026 03/27/2016 Mammogram Screening 05/24/2027 05/24/2025, 02/08/2021, 12/27/2019, Additional history exists Colorectal Cancer Screening Colonoscopy (10 Years) 02/23/2028 02/22/2025, 12/06/2012 RSV Immunization or 60+ Years (1 - 1-dose 75+ series) 2034 Hepatitis C Completed 04/04/2025, 09/06/2022 PHQ-2 (Physician Hilliard) Completed 05/17/2025 Hepatitis A Vaccines Aged Out No long er eligible based on patient's age to complete this topic Meningococcal B Vaccine Aged Out No l onger eligible based on patient's age to complete this topic Meningococcal Vaccine Aged Out No leilani harish eligible based on patient's age to complete this topic RSV Immunizations Under 20 Months Aged Out No longer eligible based on patient's age to complete this topic Procedures Procedure Name Priority Date/Time Associated Diagnosis Comments VASCULAR LAB GENERIC (SCAN ORDER) 08/14/2025 CT GENERIC 08/14/2025 IMAGE GENERIC 08/14/2025 IMAGE GENERIC 08/14/2025 CT GENERIC 07/25/2025 IMAGE GENERIC 07/25/2025 MG SCREENING W ED SHERRILL DIGI KAREN 05/24/2025 12:07 PM CDT Encounter for screening mammogram for malignant neoplasm of breast HEPATITIS C ANTIBODY W/RFX TO HCV RNA Routine 09/06/2022 11:04 AM CDT Need for hepatitis C screening test COLONOSCOPY Routine 12/06/2012 12:00 AM INTERPERSONAL COMMUNICATIONS PROFESSOR from Last 3 Months or Most Recently Relevant to Health Maintenance Results * CT GENERIC (08/14/2025) Only the most recent of2 resultswithin the time period is included. Anatomical Region Laterality Modality Other 08/14/2025 [facility] Scanned SCANNING Final Resu lt * VASCULAR LAB GENERIC (SCAN ORDER) (08/14/2025) 08/14/2025 [facility] Scanned SCANNING Final Resu lt * IMAGE GENERIC (08/14/2025) Only the most recent of3 resultswithin the time period is included. Anatomical Region Laterality Modality Other 08/14/2025 [facility] Scanned SCANNING Final Resu lt * MG SCREENING W ED SHERRILL DIGI (05/24/2025 12:07 PM CDT) Anatomical Region Laterality Modality Breast Bilateral Mammography 05/24/2025 12:1 9 PM CDT Impressions 05/26/2025 1:56 PM CDT IMPRESSION: Benign findings. Recommendation: 1. Routine Screening, Bilateral Assessment: ACR BI-RADS 2 - BENIGN FINDING(S) Ordered By: NYDIA BARORS Interpreted By: Stefan Mehta, 05/24/2025 12:19 PM Narrative 05/26/2025 1:56 PM CDT [address] [place] [address] Examination: Screening bilateral mammogram Exam Date: 05/24/2025 [...] or mass. Stable, benign mammogram. Nydia Barros NP MAMMO Final Res ult * HEPATITIS C ANTIBODY W/RFX TO HCV [...] a test for HCV RNA (test code 02695) is suggested. For additional information please refer to http://education.Likez/faq/ZIE94i7 (This link is being provided for informational/ educational purposes only.) 09/06/2022 11:0 4 AM CDT 09/06/2022 11:05 AM CDT Narrative [facility] - 09/11/2022 9:22 AM CDT FASTING:YES FASTING: YES Nydia Barros NP LABORATORY Final Res ult [facility] [address] [place] [id number] * Colonoscopy (12/06/2012 12:00 AM INTERPERSONAL COMMUNICATIONS PROFESSOR) 12/06/2012 12/06/2012 Narrative [facility] CONVERSION - 12/06/2012 12:00 AM INTERPERSONAL COMMUNICATIONS PROFESSOR Documented hx of procedure Procedure Note Liv Mckeon MD - 09/27/2018 Documented hx of procedure Generic Conversion Md MCKEON GI PROCEDURE ORDERABLES Final Result [facility] TO EPIC CONVERSION from Last 3 Months or Most Recently Relevant to Health Maintenance Insurance MEDICARE [facility] MEDICARE Advance Directives Documents on File Type Date Recorded Patient Investment Sales Assistant Expl anation Power of Biomedical Engineer 07/30/2024 9:48 AM Power of Biomedical Engineer 07/09/2024 1:57 PM Care Teams Bowling Alley Attendant Relationship Specialty Start Date End Date Nydia Barros NP [address] [place] [address] PCP - General NURSE PRACTITIONER 05/10/21
--- OUTSIDE RECORDS SUMMARY | 2025-09-19 13:24 | XMS_ITS | Patient Health Record ---
Author Organization [facility] Address [address] [place], [place] [id number] Care Team Providers Care Assembler Insulator Name Role Phone LIBBY RIVERO Unavailable [phone] Nydia Barros Unavailable Unavailable Allergies No Known Allergies Reason For Referral No Information Medications Medication SIG (Take, Route, Frequency, Duration) Notes Start Date End Date Status Dupixent 300 MG/2ML Solution Auto-injector as directed Subcutaneous Active Vital Signs Height-cm 160.02 cm 04/25/2025 Weight-kg 52.16 kg 04/25/2025 Height 63 in 04/25/2025 Weight 115 lbs 04/25/2025 BMI 20.37 kg/m2 04/25/2025 Encounters Encounter Location Date Provider Diagnosis [facility] [address] [place] [id number] 11/01/2024 LIBBY JOSEFA Tinea unguium B35.1 ; Pain in left foot M79.672 ; Pain in right foot M79.671 ; 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, bilateral legs I70.213 and Acquired keratosis [keratoderma] palmaris et plantaris L85.1 [facility] [address] [place], [place] [id number] 01/31/2025 LIBBYJALEN RIVERO Tinea unguium B35.1 ; Pain in right foot M79.671 ; Pain in left foot M79.672 ; 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, bilateral legs I70.213 and Acquired keratosis [keratoderma] palmaris et plantaris L85.1 [facility] [address] [place], [place] [id number] 04/25/2025 LIBBY RIVERO Fungal infection of nail B35.1 ; Pain in right toe(s) M79.674 ; Pain in left toe(s) M79.675 ; 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, bilateral legs I70.213 and Acquired keratoderma L85.1 Assessments Encounter Date Diagnosis (ICD Code) Assessment Notes Treatment Notes Treatment Clinical Notes Section Notes 11/01/2024 Tinea unguium (ICD-10 - B35.1) Nails [...] Pain in right foot (ICD-10 - M79.671) 11/01/2024 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, bilateral legs (ICD-10 - I70.213) 04/25/2025 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, bilateral legs (ICD-10 - I70.213) 01/31/2025 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, bilateral [...] blade 04/25/2025 Acquired keratoderma (ICD-10 - L85.1) Plan Of Treatment No Information Insurance Providers Payer Name Payer Address Payer Phone Subscriber Number Group Number Insured Name Patient Relationship to Insured Coverage Start Date Coverage End Date Medicare Part B [facility] [address] [place] [address] [id number] Brenna Conte Self - patient is the insured for Life ([employer]) [address] [place], [place] [id number] [id number] KEANU CONTE Spouse - patient is the spouse of the insured
--- OUTSIDE RECORDS SUMMARY | 2025-09-19 13:24 | XMS_ITS | Encounter Summary ---
Author Organization [facility] Address [address] [place] [address] Care Team Providers Care Banana Loader Name Role Phone Nydia Barros PIZZA DRIVER Primary Care Provider [phone] Encounter Details Date Type Department Care Team (Latest Contact Info) Description 03/16/2025 Learn It Live Message [facility] [place] [address] [phone] [facility] Provider Pain Management Referral Social History [...] Sex Assigned at Female 12/16/2024 3:00 PM PHLEBOTOMY TECHNICIAN Legal Sex Female 7:44 PM CDT Gender Identity Female 12/16/2024 3:00 PM PHLEBOTOMY TECHNICIAN Sexual Orientation Not on file documented as of this encounter Plan of Treatment Upcoming Encounters Date Type Department Care Team (Late st Contact Info) Description 11/14/2025 10:40 AM PHLEBOTOMY TECHNICIAN Office Visit [facility] Family Medicine - Martín [address] [facility] [address] [facility] [address] [place], [place] [phone] Nydia Barros NP [address] [place], [place] [phone] documented as of this encounter Visit Diagnoses Not on filedocumented in this encounter Additional Health Concerns Assessment Noted Time PHQ-9 Depression Total Score: 4 07/08/20 24 1:35 PM CDT documented as of this encounter Care Teams Banana Loader Relationship Specialty Start Date End Date Nydia Barros NP [address] [place] [address] PCP - General NURSE PRACTITIONER 05/10/21 documented as of this encounter
--- OUTSIDE RECORDS SUMMARY | 2025-09-19 13:24 | XMS_ITS | Clinical Summary ---
Author Organization [facility] Approva Address [address] [place] [address] Care Team Providers Care Cigarette Packer Name Role Phone Nydia Barrso MD Primary Care Provider [phone]- [phone] Allergies Active Allergy Reactions Criticality Noted Date [...] 04/05/2024 Assessment & Plan (01/17/2025 3:22 PM SAWMILL SUPERVISOR): Here today to transfer care from [...] Type Department Care Team Description 07/21/2025 Telephone [facility] Ophthalmology [address] [facility] 6th Floor, [address] [facility] [place] [address] Praful Sierra, MADDISON 06/23/2025 Documentation [facility] Orthopaedic Surgery [address] [place] [address] [place] [phone] Belgica Chun CMA 06/23/2025 Orders Only [facility] Orthopaedic Surgery [address] [place] [address] [address] [place] [phone] Prakash Barajas MD Right knee pain, unspecified chronicity (Primary Dx); Personal history of congenital hip dysplasia 06/20/2025 1:00 PM CDT Office Visit [facility] Orthopaedic Surgery [address] [place] [phone] Prakash Barajas MD Right knee pain, unspecified [...] Comments Blood Pressure 122/77 11/30/2024 2:27 PM SAWMILL SUPERVISOR Pulse 93 11/30/2024 2:27 PM SAWMILL SUPERVISOR Temperature - - Respiratory Rate - - Oxygen Saturation - - Inhaled Oxygen Concentration - - Weight 55.3 kg (122 lb) 11/30/2024 2:27 PM SAWMILL SUPERVISOR Height 160 cm (5' 3) 11/30/2024 2:27 PM SAWMILL SUPERVISOR Body Mass Index 21.61 11/30/2024 2:27 PM SAWMILL SUPERVISOR Plan of Treatment Health Maintenance Due Date Last Done Comments Colon Cancer Screening-Colonoscopy 1959 Depression Screening 1959 Fall Risk Assessment 1959 Hepatitis C Screening 1959 Osteoporosis Screening-Bone Density Scan 1959 Hepatitis B Screening 1977 Zoster Vaccine (2 of 3) 05/22/2016 03/27/2016 Pneumococcal vaccine 65+ (2 of 2 - PCV) 03/27/2017 03/27/2016 Well Visit 65+ 02/11/2024 Covid-19 Vaccine (5 - 2024-2 6 season) 2025 11/22/2022, 06/16/2022, 11/15/2021, Additional history exists Influenza Vaccine (#1) 2025 , 09/04/2023, 11/15/2021, Additional history exists DTaP/Tdap/Td Vaccine (2 - Td or Tdap) 03/27/2026 03/27/2016 Breast Cancer Screening-Mammogram 05/24/2026 05/24/2025, 05/24/2025, 02/08/2021, Additional history exists Procedures Procedure Name Priority Date/Time Associated Diagnosis Comments TX ARTHROCENTESIS ASPIR&/INJ MAJOR JT/BURSA W/O US Routine 06/20/2025 1:00 PM CDT Right knee pain, unspecified chronicity Primary osteoarthritis of right knee from Last 3 Months Results * TX ARTHROCENTESIS ASPIR&/INJ MAJOR JT/BURSA W/O US (06/20/2025 [...] Result from Last 3 Months Insurance MEDICARE [facility] FOR LIFE MEDICARE Care Teams Cigarette Packer Relationship Specialty Start Date End Date Nydia Barros MD PCP - General Nurse Practitioner 07/28/24
--- OUTSIDE RECORDS SUMMARY | 2025-09-19 13:24 | XMS_ITS | Encounter Summary ---
Author Organization [facility] Address [address] [place] [address] Care Team Providers Care Land Surveyor Manager Name Role Phone Nydia Barros THIRD MATE Primary Care Provider [phone] [phone] Encounter Details Date Type Department Care Team (Late Contact Info) Description 10/26/2024 Therapy Plan [facility] Physical Therapy [address] [facility] [address] [place] [address] Bella Keenan, PT [address] [place] [address] Social History Tobacco Use Types Packs/Day Years [...] Sex Assigned at Female 12/16/2024 3:00 PM CUBING MACHINE TENDER Legal Sex Female 7:44 PM CDT Gender Identity Female 12/16/2024 3:00 PM CUBING MACHINE TENDER Sexual Orientation Not on file documented as of this encounter Plan of Treatment Upcoming Encounters Date Type Department Care Team (Late st Contact Info) Description 11/14/2025 10:40 AM CUBING MACHINE TENDER Office Visit [facility] Family Medicine - [place] [address] [facility] [address] [place] [address] Nydia Barros NP [address] [place], [place] [address] documented as of this encounter Visit Diagnoses Not on filedocumented in this encounter Additional Health Concerns Assessment Noted Time PHQ-9 Depression Total Score: 4 07/08/20 24 1:35 PM CDT documented as of this encounter Care Teams Land Surveyor Manager Relationship Specialty Start Date End Date Nydia Barros NP [address] [place] [address] PCP - General NURSE PRACTITIONER 05/10/21 documented as of this encounter
--- OUTSIDE RECORDS SUMMARY | 2025-09-19 13:24 | XMS_ITS | Encounter Summary ---
Author Organization [facility] Address [address] [place] [address] Care Team Providers Care Air Conditioner Installer Helper Name Role Phone Nydia Barros NP Primary Care Provider [phone] -[phone] Encounter Details Date Type Department Care Team (Late Contact Info) Description 09/12/2025 [facility] Message Enc [facility] Diabetes & Nutrition Services [address] [place] [address] Social History Tobacco Use Types Packs/Day Years [...] Sex Assigned at Female 12/16/2024 3:00 PM PHYSICIAN CODING SPECIALIST Legal Sex Female 7:44 PM CDT Gender Identity Female 12/16/2024 3:00 PM PHYSICIAN CODING SPECIALIST Sexual Orientation Not on file documented as of this encounter Progress Notes * Taylor Uribe RD - 09/12/2025 12:03 PM CDT Unable to leave a message to schedule patient for outpatient nutritional referral. Please call to make appointment at [phone] Thank you documented in this encounter Plan of Treatment Upcoming Encounters Date Type Department Care Team (Late Contact Info) Description 11/14/2025 10:40 AM PHYSICIAN CODING SPECIALIST Office Visit [facility] Family Medicine - [place] [address] [place] [address] Nydia Barros NP [address] [place] [address] [place] [address] documented as of this encounter Visit Diagnoses Not on filedocumented in this encounter Additional Health Concerns Assessment Noted Time PHQ-9 Depression Total Score: 6 05/17/20 25 12:45 PM CDT documented as of this encounter Care Teams Air Conditioner Installer Helper Relationship Specialty Start Date End Date Nydia Barros NP [address] [place] [address] PCP - General NURSE PRACTITIONER 05/10/21 documented as of this encounter
--- OUTSIDE RECORDS SUMMARY | 2025-09-19 13:24 | XMS_ITS | Encounter Summary ---
Author Organization [facility] Address [address] [place] [address] Care Team Providers Care Supervisor Front Name Role Phone Nydia Barros NP Primary Care Provider +1 -[phone] Encounter Details Date Type Department Care Team ([facility] Contact Info) Description 06/09/2025 [place] Message Enc [facility] [address] [facility] [address] [place] [address] [facility] Provider results. Social History Tobacco Use Types [...] Sex Assigned at Female 12/16/2024 3:00 PM BULLET CHARGING MACHINE OPERATOR Legal Sex Female 7:44 PM CDT Gender Identity Female 12/16/2024 3:00 PM BULLET CHARGING MACHINE OPERATOR Sexual Orientation Not on file documented as of this encounter Plan of Treatment Upcoming Encounters Date Type Department Care Team (Late Contact Info) Description 11/14/2025 10:40 AM BULLET CHARGING MACHINE OPERATOR Office Visit [facility] [address] [address] Nydia Barros NP [address] [place] [address] documented as of this encounter Visit Diagnoses Not on filedocumented in this encounter Additional Health Concerns Assessment Noted Time PHQ-9 Depression Total Score: 6 05/17/20 25 12:45 PM CDT documented as of this encounter Care Teams Supervisor Front Relationship Specialty Start Date End Date Nydia Barros NP [address] [place] [address] [place] [address] PCP - General NURSE PRACTITIONER 05/10/21 documented as of this encounter
--- OUTSIDE RECORDS SUMMARY | 2025-09-19 13:24 | XMS_ITS | Encounter Summary ---
Author Organization [facility] Address [address] [place] [address] Care Team Providers Care Sausage Mixer Name Role Phone Nydia Barros NP Primary Care Provider +1 -[phone] Encounter Details Date Type Department Care Team (Late Contact Info) Description 07/22/2024 [place] Message Enc [facility] Medical [facility] Multispecialty Care - [address], [address] [place] [address] [facility] Provider Results Social History Tobacco [...] Sex Assigned at Female 12/16/2024 3:00 PM TAKE OFF WORKER Legal Sex Female 7:44 PM CDT Gender Identity Female 12/16/2024 3:00 PM TAKE OFF WORKER Sexual Orientation Not on file documented as of this encounter Plan of Treatment Upcoming Encounters Date Type Department Care Team (Late Contact Info) Description 11/14/2025 10:40 AM TAKE OFF WORKER Office Visit [facility] Medical [facility] Family Medicine - [place] [address] [facility] [address] [place], [place] [id number] Nydia Barros NP [address] [place], [place] [id number] documented as of this encounter Visit Diagnoses Not on filedocumented in this encounter Additional Health Concerns Assessment Noted Time PHQ-9 Depression Total Score: 4 07/08/20 24 1:35 PM CDT documented as of this encounter Care Teams Sausage Mixer Relationship Specialty Start Date End Date Nydia Barros NP [address] [place] [address] PCP - General NURSE PRACTITIONER 05/10/21 documented as of this encounter
--- OUTSIDE RECORDS SUMMARY | 2025-09-19 13:24 | XMS_ITS | Encounter Summary ---
Author Organization [facility] Address [address] [facility] [place] [address] Care Team Providers Care Naval Surface Fire Support Planner Name Role Phone Marina Velez MD Primary Care Provider + [phone] [facility] Primary Care Provi jones Encounter Details Date Type Department Care Team (Late st Contact Info) Description 10/15/2019 Telephone [facility] [address] [place] [address] Angie Cai DO [address] [place] [address] Social History Tobacco Use Types Packs/Day Years Used Date Smoking Tobacco: Never Smokeless Tobacco: Never Alcohol Use Standard Drinks/Week Comments Yes 0 (1 standard drink = 0.6 oz pur e alcohol) Comments Unknown Sex and Gender Information Value Date Recorded Sex Assigned at Not on file Legal Sex Female 5:40 PM PRODUCT DEVELOPMENT MANAGER Gender Identity Not on file Sexual Orientation [...] be mailed to patient. Angie Cai DO [facility] Resident, PGY-2 UCT DEVELOPMENT MANAGER documented in this encounter Plan of Treatment Upcoming Encounters Date Type Department Care Team (Late st Contact Info) Description 11/14/2025 1:20 PM PRODUCT DEVELOPMENT MANAGER Office Visit [facility] - Rheumatology [address] [place] [address] Quiana Minor MD [address] [facility] 2L [place] [id number] documented as of this encounter Visit Diagnoses Not on filedocumented in this encounter Care Teams Naval Surface Fire Support Planner Relationship Specialty Start Date End Date Marina Velez MD [address] [facility] [address] [place] [address] PCP - General 05/07/19 09/05/22 Nydia Barros, KAVEH-PIECER UP [address] [place] [address] PCP - General 09/06/22 documented as of this encounter
== END 2025-09-19 12:50 ==
PROVIDERS: Emergency Provider Nurse Practitioner Adult Health; PCP Nurse Practitioner
DX: M19.041 Primary osteoarthritis, right hand (principal); M19.031 Primary osteoarthritis, right wrist; F03.90 Unspecified dementia, unspecified severity, without behavioral disturbance, psychotic disturbance, mood disturbance, and anxiety; I10 Essential (primary) hypertension; E87.1 Hypo-osmolality and hyponatremia; F41.9 Anxiety disorder, unspecified; Z96.643 Presence of artificial hip joint, bilateral; Z79.899 Other long term (current) drug therapy; Z77.22 Contact with and (suspected) exposure to environmental tobacco smoke (acute) (chronic)
CPT/HCPCS: 36415; 73110; 73130; 80053; 85025; 99283